=== PATIENT | male | born 1945 | race Asian ===

== ENCOUNTER 2016-12-11 09:32 | Inpatient (IN) | payer MEDICARE, OTHER ==
[2016-12-11 09:39] VITALS: BMI 34.6
[2016-12-11 10:53] LABS: BASOPHIL 0.6 % (0-2.0)
[2016-12-11 11:02] LABS: EOSINOPHIL 2.2 % (0-4.5); MCH 26.1 pg (25.7-33.7); MCHC 32.9 g/dl (32.0-35.9); MEAN CELL VOLUME 79.5 fl (80-96); MEAN PLT VOLUME 11.3 fl (7.5-11.1); NEUTROPHILS 78.7 % (42.8-82.8); PLATELET COUNT 135 K/MM3 (134-434); RDW 15.8 % (11.9-15.9); WHITE BLOOD COUNT 8.8 K/mm3 (4.0-10.0)
[2016-12-11 11:27] LABS: URINE APPEARANCE CLEAR; URINE BILIRUBIN NEGATIVE (NEGATIVE); URINE BLOOD NEGATIVE (NEGATIVE); URINE COLOR LTYELLOW; URINE GLUCOSE (UA) NEGATIVE (NEGATIVE); URINE KETONE NEGATIVE (NEGATIVE); URINE LEUK ESTERASE NEGATIVE (NEGATIVE); URINE NITRITE NEGATIVE (NEGATIVE); URINE UROBILINOGEN NEGATIVE E.U./dl (0.2-1.0)
[2016-12-11 11:30] LABS: ALBUMIN 3.6 g/dl (3.4-5.0); BILIRUBIN,TOTAL 0.7 mg/dL (0.2-1.0); CALCIUM 8.3 mg/dL (8.5-10.1); COCKROFT - GAULT 76.43; CREATININE 1.2 mg/dL (0.7-1.3)
[2016-12-11 11:33] LABS: URINE PROTEIN 1+ (NEGATIVE)
[2016-12-11 11:33] LABS: TOT PROT 6.6 g/dl (6.4-8.2); TROPONIN I 0.02 ng/ml (0.00-0.05)
[2016-12-11 11:39] LABS: URINE HYALINE CAST 1 /lpf; URINE MUCUS RARE; URINE RBC <1 /hpf (0-3); URINE WBC 5 /hpf (3-5)
--- NOTE | 2016-12-11 12:43 | PDOC ---
History of Present Illness - General Chief Complaint: Weakness Stated Complaint: DIZZINESS, URINARY PROBLEM Time Seen by Provider: 12/11/16 09:57 History Source: Patient Exam Limitations: No Limitations - History of Present Illness Initial Comments: 12/11/16 12:48 71-year-old male presents to the ED with complaints of constipation for the past week unrelieved with [id number] medications. Patient undergo plating of increased weakness, decreased appetite, increased shortness of breath with minimal exertion. Patient mentions lower extremity edema despite being on Lasix for his CHF. Patient denies chest pain, fever, chills, nausea or dysuria, palpitations, or cough. Patient states history of Parkinson's, CHF, COPD, diabetes, hypertension, and dyslipidemia. Patient also states history of pacemaker. Timing/Duration: 1 week Severity: moderate Associated Symptoms: reports: shortness of breath, weakness Past History - Past Medical History Allergies/Adverse Reactions: Allergies Allergy/AdvReac Type Severity Reaction Status Date / Time No Known Drug Allergies Allergy Verified 12/11/16 09:39 Home Medications: Ambulatory Orders Gabapentin 100 mg PO TID 08/08/16 Linagliptin [Tradjenta] 5 mg PO DAILY 08/08/16 Mirabegron [Myrbetriq] 50 mg PO DAILY 08/08/16 Atorvastatin Ca [Lipitor] 20 mg PO DAILY 12/11/16 Carbidopa/Levodopa [Carbidopa-Levodopa 25-100 Tab] 1 each PO Q4H 12/11/16 Insulin Glargine,Hum.rec.anlog [Lantus (10mL VIAL) -] 50 units SQ AM 12/11/16 Linaclotide [Linzess] 290 mcg PO DAILY 12/11/16 Potassium Chloride [Klor-Con 10] 10 meq PO BID 12/11/16 Pramipexole Di-HCl [Pramipexole Dihydrochloride] 0.75 mg PO ASDIR 12/11/16 Acetaminophen [Tylenol .Regular Strength -] 650 mg PO Q4H PRN #0 tablet Aspirin [ASA -] 81 mg PO DAILY tab.chew 12/16/16 Carvedilol [Coreg -] 3.125 mg PO BID tablet 12/16/16 Furosemide [Lasix -] 40 mg PO BID@0600,1400 tablet 12/16/16 Insulin Sliding Scale [Novolog Vial Sliding Scale -] 1 vial SQ ACHS units 12/16 Polyethylene Glycol 3350 [Miralax 119 gm Btl -] 34 gm PO BID bottle 12/16/16 Anemia: No Asthma: No Cancer: No Cardiac Disorders: Yes (PACEMAKER) CVA: No COPD: No CHF: Yes Dementia: No Diabetes: Yes GI Disorders: Yes (GALLBLADDER) Disorders: Yes (ENLARGED PROSTATE) HTN: Yes Hypercholesterolemia: Yes Liver Disease: No Seizures: No Thyroid Disease: No Other medical history: parkinson's disease - Surgical History Abdominal Surgery: No Appendectomy: No Cardiac Surgery: Yes (STENTS X2,PACEMAKER) Cholecystectomy: No Lung Surgery: No Neurologic Surgery: No Orthopedic Surgery: No - Psycho/Social/Smoking Cessation Hx Anxiety: No Suicidal Ideation: No Smoking History: Never smoked Have you smoked in the past 12 months: No Information on smoking cessation initiated: No Hx Alcohol Use: No Drug/Substance Use Hx: No Substance Use Type: None Hx Substance Use Treatment: No Patient Lives Alone: No Review of Systems - Review of Systems Able to Perform ROS?: Yes Constitutional: Yes: Loss of Appetite, Weakness HEENTM: No: Symptoms Reported Respiratory: Yes: SOB with Exertion Cardiac (ROS): No: Symptoms Reported ABD/GI: Yes: Abdominal Distended, Constipated. No: Nausea, Abdominal cramping : No: Symptoms Reported Musculoskeletal: No: Symptoms Reported Integumentary: No: Symptoms Reported Neurological: No: Symptoms reported Endocrine: No: Symptoms Reported Hematologic/Lymphatic: No: Symptoms Reported *Physical Exam - Vital Signs Last Vital Signs Temp Pulse Resp BP Pulse Ox 97.8 F 70 18 146/112 96 12/11/16 09:37 12/11/16 09:37 12/11/16 09:37 12/11/16 09:37 12/11/16 10:00 - Physical Exam General Appearance: Yes: Nourished, Appropriately Dressed. No: Apparent Distress HEENT: positive: EOMI, BRIGETTE. negative: Pale Conjunctivae Neck: positive: Supple Respiratory/Chest: positive: Crackles (inspiratory to right lower base) Cardiovascular: positive: Regular Rhythm, Regular Rate. negative: Murmur Gastrointestinal/Abdominal: positive: Normal Bowel Sounds, Soft, Distended. negative: Tenderness Musculoskeletal: negative: CVA Tenderness Extremity: positive: Pedal Edema (3 plus pitting bilateral). negative: Calf Tenderness Integumentary: positive: Normal Color, Warm, Moist Neurologic: positive: Motor Strength 5/5 (ambulatory) ED Treatment Course - LABORATORY CBC & Chemistry Diagram: 12/13/16 05:35 12/15/16 05:35 - ADDITIONAL ORDERS Additional order review: Laboratory Results 12/11/16 12/11/16 12/11/16 10:40 10:24 10:24 Sodium 141 Potassium 4.7 Chloride 108 H Carbon Dioxide 26 Anion Gap 7 L BUN 23 H Creatinine 1.2 Creat Clearance w eGFR 59.86 Random Glucose 203 H D Calcium 8.3 L Total Bilirubin 0.7 D AST 38 H D ALT 44 D Alkaline Phosphatase 78 Creatine Kinase 304 D Troponin I 0.02 B-Natriuretic Peptide 687.64 H Total Protein 6.6 Albumin 3.6 Urine Color Ltyellow Urine Appearance Clear Urine pH 5.0 Urine Protein 1+ H Urine Glucose (UA) Negative Urine Ketones Negative Urine Blood Negative Urine Nitrite Negative Urine Bilirubin Negative Urine Urobilinogen Negative Ur Leukocyte Esterase Negative Urine RBC <1 Urine WBC 5 Hyaline Casts 1 Urine Mucus Rare 12/11/16 10:24 RBC 4.79 MCV 79.5 L MCHC 32.9 RDW 15.8 MPV 11.3 H Neutrophils % 78.7 Lymphocytes % 11.1 D Monocytes % 7.4 Eosinophils % 2.2 Basophils % 0.6 - RADIOLOGY Radiology Studies Ordered: Category Date Time Status CHEST X-RAY PORTABLE* [RAD] Stat Radiology 12/11/16 10:09 Completed KUB (KID UR & BLAD) [RAD] Stat Radiology 12/11/16 10:08 Completed Medical Decision Making - Medical Decision Making 12/11/16 12:08 Patient complains of constipation over the past week despite being on over-the- counter tablets patient also complaining of shortness of breath with minimal exertion and increased lower extremity edema. Patient does have history of CHF and COPD. Patient on exam had inspiratory crackles to the right with 3+ pitting edema to the lower extremities. Patient ordered for cardiac workup, BNP and a KUB to rule out colonic dilatation versus obstruction. 12/11/16 13:00 Abdominal x-ray shows constipation without obstruction and chest x-ray shows increasing congestive changes. Patient will be ordered for Lasix 40 mg IV and will consult patient's PCP Dr. Jane for admission 12/11/16 13:05 Laboratory Tests 12/11/16 12/11/16 12/11/16 10:24 10:24 10:24 WBC 8.8 Hgb 12.5 Hct 38.0 Plt Count 135 Neutrophils % 78.7 Sodium 141 Potassium 4.7 Chloride 108 H Anion Gap 7 L BUN 23 H Creatinine 1.2 Creat Clearance w eGFR 59.86 Random Glucose 203 H D Calcium 8.3 L Total Bilirubin 0.7 D AST 38 H D ALT 44 D Alkaline Phosphatase 78 Creatine Kinase 304 D CK-MB (CK-2) Rel Index Troponin I 0.02 B-Natriuretic Peptide 687.64 H Urine Protein Urine Ketones Urine Nitrite Urine Bilirubin Ur Leukocyte Esterase Urine RBC Urine WBC 12/11/16 12/11/16 10:24 10:40 WBC Hgb Hct Plt Count Neutrophils % Sodium Potassium Chloride Anion Gap BUN Creatinine Creat Clearance w eGFR Random Glucose Calcium Total Bilirubin AST ALT Alkaline Phosphatase Creatine Kinase CK-MB (CK-2) Rel Index Pending Troponin I B-Natriuretic Peptide Urine Protein 1+ H Urine Ketones Negative Urine Nitrite Negative Urine Bilirubin Negative Ur Leukocyte Esterase Negative Urine RBC <1 Urine WBC 5 Awaiting also call from patient's openstack developer Dr. Downs 12/11/16 13:42 Dr. Galindo here for consultation. Microblog sent to hospitalist. 12/11/16 13:55 Hospital states patient is to be admitted to Dr. Katharine Rodriguez. Call placed to Dr. Katharine Rodriguez *DC/Admit/Observation/Transfer Diagnosis at time of Disposition: Lightheaded, Dizziness CHF (congestive heart failure) Qualifiers: Congestive heart failure type: systolic Congestive heart failure chronicity: acute on chronic Qualified Code(s): I50.23 - Acute on chronic systolic ( congestive) heart failure Constipation Qualifiers: Constipation type: unspecified constipation type Qualified Code(s): K59.00 - Constipation, unspecified - Discharge Dispostion Disposition: [facility]-WAY FACILITY Condition at time of disposition: Fair Admit: Yes - Referrals
[2016-12-11] MEDS ORDERED: FUROSEMIDE 40 MG/4 ML INJECTABLE VIAL IVPUSH ONE (13:01)
[2016-12-11] MEDS ORDERED: FUROSEMIDE 40 MG/4 ML INJECTABLE VIAL ONE (13:10)
--- NOTE | 2016-12-11 14:13 | CON.CARD ---
Consult Consult Specialty:: Cardiology Referred by:: ER Reason for Consultation:: SOB, edema - History of Present Illness Chief Complaint: Weakness, constipation, sob, edema History of Present Illness: 71 year old man with a history of HTN, HLD, DM, CAD s/p PCI LAD 2007 and again 2012, repeat cardiac cath 05/2014 showed patent LAD stents an only non- obstructive CAD in the other coronary territories, Chronic diastolic HF, Parkinsons disease, non-adherent with follow up, has not been to the office in several years, last seen here in the hospital 2 years ago with c/o dizziness, he has since undergone a PPM placement at an outside facility now presenting with constipation, sob, edema. Pt. seen and examined in the ER in [place]. Pt. states that he has been followed by a different fruit canner since he was last seen by us but he does not know the doctors name or location. He states that he had the PPM placed with that doctor. He is currently c/o constipation for several days and additionally notes worsening sob and edema. Denies chest pain. continues to have chronic dizziness. no syncope or near syncope. no pnd, orthopnea. - History Source History Provided By: Patient, Medical Record Limitations to Obtaining History: Poor Historian - Past Medical History Cardio/Vascular: Yes: AFIB, CAD, CHF, HTN, Hyperlipdemia, Other (ppm) - Past Surgical History Past Surgical History: Yes: Permanent Pacemaker - Alcohol/Substance Use Hx Alcohol Use: No - Smoking History Smoking history: Never smoked Have you smoked in the past 12 months: No - Social History Usual Living Arrangement: With Spouse ADL: Independent History of Recent Travel: No Home Medications - Allergies Allergies/Adverse Reactions: Allergies Allergy/AdvReac Type Severity Reaction Status Date / Time No Known Drug Allergies Allergy Verified 12/11/16 09:39 - Home Medications Home Medications: Ambulatory Orders Furosemide [Lasix -] 40 mg PO DAILY 08/08/16 Gabapentin 100 mg PO TID 08/08/16 Linagliptin [Tradjenta] 5 mg PO DAILY 08/08/16 Mirabegron [Myrbetriq] 50 mg PO DAILY 08/08/16 Atorvastatin Ca [Lipitor] 20 mg PO HS 12/11/16 Carbidopa/Levodopa [Carbidopa-Levodopa 25-100 Tab] 1 each PO Q4H 12/11/16 Insulin Glargine,Hum.rec.anlog [Lantus (nf)] 50 units SQ AM 12/11/16 Linaclotide [Linzess] 290 mcg PO DAILY 12/11/16 Naloxegol Oxalate [Movantik] 25 mg PO DAILY 12/11/16 Potassium Chloride [Klor-Con 10] 10 meq PO BID 12/11/16 Pramipexole Di-HCl [Pramipexole Dihydrochloride] 0.75 mg PO ASDIR 12/11/16 Family Disease History - Family Disease History Family History: Denies Review of Systems - Review of Systems Constitutional: reports: Weakness. denies: No Symptoms, Chills, Diaphoresis, Fever, Lethargy, Loss of Appetite, Malaise, Night Sweats, Unintentional Wgt. Loss, Other Eyes: denies: No Symptoms, Blind Spots, Blurred Vision, Double Vision, Eye Pain , Floaters, Photophobia, Recent Change in Vision, Other HENT: denies: No Symptoms, Difficult Swallowing, Ear Discharge, Ear Pain, Epistaxis, Gingival Bleeding, Hearing Loss, Mouth Swelling, Nasal Congestion, Ocular Prosthesis, Throat Pain, Toothache, Ringing in Ears, Other Neck: denies: No Symptoms, Decreased ROM, Lumps, Pain on Movement, Stiffness, Swollen Glands, Tenderness, Other Cardiovascular: reports: Edema, Shortness of Breath. denies: Chest Pain, Palpitations, Other Respiratory: reports: Exercise Intolerance, SOB, SOB on Exertion. denies: No Symptoms, Cough, Hemoptysis, Orthopnea, PND, Snoring, Wheezing, Other Gastrointestinal: reports: Constipation. denies: No Symptoms, Abdominal Pain, Bloating, Diarrhea, Dysphagia, Indigestion, Melena, Nausea, Rectal Bleeding, Vomiting, Vomiting Blood, Other Genitourinary: denies: No Symptoms, Burning, Discharge, Dysuria, Flank Pain, Frequency, Hematuria, Incontinence, Lesions, Menses, Pain, Testicular Mass, Testicular Pain, Testicular Swelling, Urgency, Vaginal Bleeding, Other Breasts: denies: No Symptoms Reported, See HPI, Breast Implants, Discharge from Nipple, Lumps, Pain, Skin Changes, Other Musculoskeletal: denies: No Symptoms, Back Pain, Crepitus, Decreased ROM, Extremity Pain, Joint Pain, Joint Swelling, Muscle Pain, Muscle Cramps, Muscle Weakness, Other Integumentary: denies: No Symptoms, Blister, Bruising, Change in Color, Eczema, Erythema, Incision, Lesions, Lump, Pallor, Pruritis, Rash, Wound, Other Neurological: reports: Incoordination, Tremors. denies: No Symptoms, Change in LOC, Change in Speech, Confusion, Dizziness, Headache, Numbness, Parasthesia, Pre-Existing Deficit, Seizure, Syncope, Unsteady Gait, Weakness, Other Endocrine: denies: No Symptoms, Excessive Sweating, Flushing, Increased Hunger, Increased Thirst, Intolerance to Cold, Intolerance to Heat, Unexplained Weight Gain, Unexplained Weight Loss, Other Hematology/Lymphatic: denies: No Symptoms, Easily Bruised, Excessive Bleeding, Swollen Glands, Other Psychiatric: denies: No Symptoms, Altered Sleep Pattern, Anxiety, Depression, Hallucinations, Panic, Paranoia, Suicidal, Other - Risk Factors Known Risk Factors: Yes: Hypercholesterolemia, Hypertension Vital Signs: Vital Signs Temperature 97.8 F 12/11/16 09:37 Pulse Rate 61 12/11/16 14:05 Respiratory Rate 18 12/11/16 14:05 Blood Pressure 130/63 12/11/16 14:05 O2 Sat by Pulse Oximetry (%) 100 12/11/16 14:05 Constitutional: Yes: No Distress, Calm, Obese Eyes: Yes: Conjunctiva Clear, EOM Intact, PERRL HENT: Yes: Atraumatic, Normocephalic Neck: Yes: Supple, Trachea Midline Respiratory: Yes: Regular, Diminished, Rales. No: Rhonchi, SOB, Wheezes Gastrointestinal: Yes: Normal Bowel Sounds, Soft. No: Distention, Tenderness Cardiovascular: Yes: Regular Rate and Rhythm. No: Bradycardia, Tachycardia, Gallop, Rub, Varicosities JVD: No Carotid Bruit: No PMI: Non-Displaced Heart Sounds: Yes: S1, S2. No: Split S2, S3, S4, Clicks, Gallop, Rub, Bruit Murmur: No: Systolic Murmur, Diastolic Murmur Musculoskeletal: Yes: Muscle Weakness Edema: Yes Edema: LLE: 1+, RLE: 1+ Peripheral Pulses WNL: Yes Peripheral Pulses: 2+ Left Doralis Pedis, 2+ Right Dorsalis Pedis Neurological: Yes: Alert, Oriented Psychiatric: Yes: Alert, Oriented - Other Data Labs, Other Data: CBC, BMP 12/11/16 10:24 12/11/16 10:24 Troponin, BNP 12/11/16 12/11/16 10:24 10:24 Troponin I 0.02 B-Natriuretic Peptide 687.64 H Troponin, BNP 12/11/16 12/11/16 10:24 10:24 Troponin I 0.02 B-Natriuretic Peptide 687.64 H ekg-NSR Vpaced 60bpm Imaging - Results Chest X-ray: Report Reviewed, Image Reviewed EKG: Report Reviewed, Image Reviewed Other: Report Reviewed, Image Reviewed Assessment/Plan 71 year old man with a history of HTN, HLD, DM, CAD s/p PCI LAD 2007 and again 2012, repeat cardiac cath 05/2014 showed patent LAD stents an only non- obstructive CAD in the other coronary territories, Chronic diastolic HF, Parkinsons disease, non-adherent with follow up, has not been to the office in several years, last seen here in the hospital 2 years ago with c/o dizziness, he has since undergone a PPM placement at an outside facility now presenting with constipation, sob, edema. Pt. seen and examined in the ER in [facility]. Pt. states that he has been followed by a different fruit canner since he was last seen by us but he does not know the doctors name or location. He states that he had the PPM placed with that doctor. He is currently c/o constipation for several days and additionally notes worsening sob and edema. Denies chest pain. continues to have chronic dizziness. no syncope or near syncope. no pnd, orthopnea. SOB/Edema-acute on chronic diastolic HF-chronic LE edema -start Lasix 40mg IV bid -monitor strict I/Os and daily weights -fluid restrict < 1L x 24 hours -monitor bun/creat, electrolytes and replete as needed -check echo Dizziness-chronic, multiple possible etiologies, likely related to Parkinsons and possible orthostatic hypotension -pt had a PPM placed since last seen at [facility] -would consider neurologic sources and medications given Parkinsons disease -echo done 11/11/14- TDS, no pericardial effusion, trace MR, mild calc AV with normal opening, E-A reversal c/w impaired relaxation, grossly normal LV systolic function -carotid doppler done 11/21/14-no sign of atherosclerotic disease on either side , no evidence of hemodynamically sig internal carotid artery stenosis on either side -check orthostatic BP CAD-prior PCI LAD 2007 and 2012, cath 2013 with no sig restenosis and otherwise non-obs CAD -cont with home medical regimen -would be helpful to review results of any tests done at outside fruit canner office HTN-at goal -cont home medical regimen HLD -cont home medical regimen
[2016-12-11] MEDS ORDERED: ACETAMINOPHEN 325 MG TABLET (FP) PO PRN (15:32)
--- NOTE | 2016-12-11 17:24 | EKG ---
Test Reason : Blood Pressure : / mmHG Vent. Rate : 069 BPM Atrial Rate : 080 BPM P-R Int : 000 ms QRS Dur : 110 ms QT Int : 400 ms P-R-T Axes : 000 -32 172 degrees QTc Int : 428 ms Ventricular-paced rhythm ABNORMAL ECG WHEN COMPARED WITH ECG OF 16-JUN-2016 00:48, ELECTRONIC VENTRICULAR PACEMAKER HAS REPLACED SINUS RHYTHM Confirmed by NATALIE HOUSTON MD ([id number]) on 12/11/2016 5:23:54 PM Referred By: Confirmed By:NATALIE HOUSTON MD
[2016-12-11] MEDS: INSULIN SLIDING SCALE (NOVOLOG) 1 VIAL SQ SCH ×2 (18:11→22:11)
[2016-12-11] MEDS: CARBIDOPA/LEVODOPA 25/100 TABLET (FP) PO SCH ×2 (19:19→22:09)
--- NOTE | 2016-12-11 19:39 | CON.GI ---
Consult Consult Specialty:: gastroenterology Reason for Consultation:: constipation - History of Present Illness History of Present Illness: I was asked by his son to see his dad. Patient known to me, history of Parkinson 's disease developed severe constipation. His last bowel movement was 1 week ago. He was admired with CHF and fluid overload. - Past Medical History Cardio/Vascular: Yes: AFIB, CAD, CHF, HTN, Hyperlipdemia, Other (ppm) - Past Surgical History Past Surgical History: Yes: Permanent Pacemaker - Alcohol/Substance Use Hx Alcohol Use: No - Smoking History Smoking history: Never smoked Have you smoked in the past 12 months: No - Social History Usual Living Arrangement: With Spouse ADL: Independent History of Recent Travel: No Home Medications - Allergies Allergies/Adverse Reactions: Allergies Allergy/AdvReac Type Severity Reaction Status Date / Time No Known Drug Allergies Allergy Verified 12/11/16 09:39 - Home Medications Home Medications: Ambulatory Orders Furosemide [Lasix -] 40 mg PO DAILY 08/08/16 Gabapentin 100 mg PO TID 08/08/16 Linagliptin [Tradjenta] 5 mg PO DAILY 08/08/16 Mirabegron [Myrbetriq] 50 mg PO DAILY 08/08/16 Atorvastatin Ca [Lipitor] 20 mg PO DAILY 12/11/16 Carbidopa/Levodopa [Carbidopa-Levodopa 25-100 Tab] 1 each PO Q4H 12/11/16 Insulin Glargine,Hum.rec.anlog [Lantus (nf)] 50 units SQ AM 12/11/16 Linaclotide [Linzess] 290 mcg PO DAILY 12/11/16 Naloxegol Oxalate [Movantik] 25 mg PO DAILY 12/11/16 Potassium Chloride [Klor-Con 10] 10 meq PO BID 12/11/16 Pramipexole Di-HCl [Pramipexole Dihydrochloride] 0.75 mg PO ASDIR 12/11/16 Physical Exam-GI Vital Signs: Vital Signs Temperature 98.1 F 12/11/16 18:24 Pulse Rate 65 12/11/16 18:24 Respiratory Rate 20 12/11/16 18:24 Blood Pressure 139/66 12/11/16 18:24 O2 Sat by Pulse Oximetry (%) 99 12/11/16 18:24 Constitutional: Yes: Well Nourished Eyes: Yes: Conjunctiva Clear HENT: Yes: Atraumatic Neck: Yes: Supple Cardiovascular: Yes: Regular Rate and Rhythm Respiratory: Yes: CTA Bilaterally Gastrointestinal Inspection: Yes: Distention ...Palpate: Yes: Soft. No: Firm/Rigid, Guarding, Hepatomegaly, Mass, Pulsatile Mass, Splenomegaly, Tenderness ...Percussion: Yes: Tympanitic Imaging - Results X-ray: Report Reviewed (colon retention) Problem List - Problems (1) Constipation by delayed colonic transit Assessment/Plan: R> oil retention enemas citroma in am Mirlax 34 gram tid dulcolax 2 tabs bid Code(s): K59.01 - SLOW TRANSIT CONSTIPATION
[2016-12-11] MEDS ORDERED: MINERAL OIL ENEMA 133 ML ENEMA PR ONE (19:41)
[2016-12-11] MEDS: HEPARIN NA (PORCINE) 5,000 UNITS/ML 1ML VIAL SQ SCH (22:00)
[2016-12-11] MEDS: ATORVASTATIN CA 20 MG TABLET (FP) PO SCH (22:00)
[2016-12-11] MEDS: POTASSIUM CHLORIDE TABS 10 MEQ TABLET.ER (FP) PO SCH (22:00)
[2016-12-11] MEDS: PRAMIPEXOLE DIHYDROCHLORIDE 0.25 MG TABLET PO SCH (22:00)
[2016-12-11] MEDS: GABAPENTIN 100 MG CAPSULE (FP) PO SCH (22:00)
[2016-12-11] MEDS: POLYETHYLENE GLYCOL 3350 119 GM BTL PO SCH (22:01)
[2016-12-12] MEDS ORDERED: BISACODYL 5 MG TABLET.DR (FP) PO ONE (06:00)
[2016-12-12] MEDS: FUROSEMIDE 40 MG/4 ML INJECTABLE VIAL IVPUSH SCH ×2 (06:49→14:11)
[2016-12-12] MEDS: GABAPENTIN 100 MG CAPSULE (FP) PO SCH ×3 (06:49→21:42)
[2016-12-12] MEDS: INSULIN DETEMIR 100 UNITS/ML MDV SQ SCH (06:50)
[2016-12-12] MEDS: INSULIN SLIDING SCALE (NOVOLOG) 1 VIAL SQ SCH ×4 (06:50→21:43)
[2016-12-12] MEDS: CARBIDOPA/LEVODOPA 25/100 TABLET (FP) PO SCH ×5 (06:50→23:30)
[2016-12-12 08:00] LABS: BASOPHIL 0.8 % (0-2.0); MCHC 33.1 g/dl (32.0-35.9); MEAN CELL VOLUME 78.8 fl (80-96); MEAN PLT VOLUME 11.4 fl (7.5-11.1); NEUTROPHILS 63.7 % (42.8-82.8); PLATELET COUNT 130 K/MM3 (134-434); RDW 15.6 % (11.9-15.9); WHITE BLOOD COUNT 8.2 K/mm3 (4.0-10.0)
[2016-12-12] MEDS ORDERED: MAGNESIUM CITRATE 300 ML BOTTLE PO ONE (08:00)
--- NOTE | 2016-12-12 08:31 | HP ---
Admitting History and Physical - Admission History of Present Illness: 71-year-old male presents to the ED with complaints of constipation for the past week unrelieved with hkgf-sfo-ofapixc medications. patient c/o increased shortness of breath with minimal exertion. Patient mentions lower extremity edema despite being on Lasix for his CHF. Patient denies chest pain, fever, chills, nausea or dysuria, palpitations, or cough. Patient states history of Parkinson's, CHF, COPD, diabetes, hypertension, and dyslipidemia. Patient also states history of pacemaker. This am feels better no cp less sob - Past Medical History Cardiovascular: Yes: AFIB, CAD, CHF, HTN, Hyperlipdemia, Other (ppm) - Past Surgical History Past Surgical History: Yes: Permanent Pacemaker - Smoking History Smoking history: Never smoked Have you smoked in the past 12 months: No - Alcohol/Substance Use Hx Alcohol Use: No - Social History ADL: Independent History of Recent Travel: No Home Medications - Allergies Allergies/Adverse Reactions: Allergies Allergy/AdvReac Type Severity Reaction Status Date / Time No Known Drug Allergies Allergy Verified 12/11/16 09:39 - Home Medications Home Medications: Ambulatory Orders Furosemide [Lasix -] 40 mg PO DAILY 08/08/16 Gabapentin 100 mg PO TID 08/08/16 Linagliptin [Tradjenta] 5 mg PO DAILY 08/08/16 Mirabegron [Myrbetriq] 50 mg PO DAILY 08/08/16 Atorvastatin Ca [Lipitor] 20 mg PO DAILY 12/11/16 Carbidopa/Levodopa [Carbidopa-Levodopa 25-100 Tab] 1 each PO Q4H 12/11/16 Insulin Glargine,Hum.rec.anlog [Lantus (nf)] 50 units SQ AM 12/11/16 Linaclotide [Linzess] 290 mcg PO DAILY 12/11/16 Naloxegol Oxalate [Movantik] 25 mg PO DAILY 12/11/16 Potassium Chloride [Klor-Con 10] 10 meq PO BID 12/11/16 Pramipexole Di-HCl [Pramipexole Dihydrochloride] 0.75 mg PO ASDIR 12/11/16 Review of Systems - Review of Systems HENT: reports: No Symptoms Neck: reports: No Symptoms Cardiovascular: reports: Edema, Shortness of Breath. denies: Chest Pain Respiratory: reports: Orthopnea, SOB, SOB on Exertion Gastrointestinal: reports: Constipation Genitourinary: reports: No Symptoms Musculoskeletal: reports: Back Pain Physical Examination Vital Signs: Vital Signs Temperature 98.1 F 12/12/16 06:00 Pulse Rate 65 12/12/16 06:00 Respiratory Rate 20 12/12/16 06:00 Blood Pressure 121/57 12/12/16 06:00 O2 Sat by Pulse Oximetry (%) 100 12/11/16 21:00 Cardiovascular: Yes: Murmur, S1, S2 Respiratory: Yes: Rales (at the bases) Gastrointestinal: Yes: Normal Bowel Sounds, Soft, Distention. No: Tenderness Edema: Yes Neurological: Yes: Alert, Oriented, Weakness Problem List - Problems (1) CHF (congestive heart failure) Assessment/Plan: IV LASIX ECHO MONITOR LABS Code(s): I50.9 - HEART FAILURE, UNSPECIFIED Qualifiers: Congestive heart failure type: unspecified congestive heart failure type Congestive heart failure chronicity: acute on chronic Qualified Code(s): I50.9 - Heart failure, unspecified (2) CAD (coronary artery disease) Assessment/Plan: SAME MEDS Code(s): I25.10 - ATHSCL HEART DISEASE OF [place] CORONARY ARTERY W/O ANG PCTRS (3) Constipation Assessment/Plan: GI ON CASE ENEMA PT TOOK [employer] OF MAG ON HIS OWN Code(s): K59.00 - CONSTIPATION, UNSPECIFIED Qualifiers: Constipation type: unspecified constipation type Qualified Code(s): K59.00 - Constipation, unspecified (4) Diabetes Assessment/Plan: BGM SS Code(s): E11.9 - TYPE 2 DIABETES MELLITUS WITHOUT COMPLICATIONS Qualifiers: Diabetes mellitus type: type 2 (5) Parkinson disease Assessment/Plan: SAME MEDS Code(s): G20 - PARKINSON'S DISEASE
[2016-12-12 09:02] LABS: ALBUMIN 3.6 g/dl (3.4-5.0); BILIRUBIN,TOTAL 0.7 mg/dL (0.2-1.0); CALCIUM 8.3 mg/dL (8.5-10.1); COCKROFT - GAULT 68.52; CREATININE 1.3 mg/dL (0.7-1.3); MAGNESIUM 2.3 mg/dL (1.8-2.4); TOT PROT 6.3 g/dl (6.4-8.2); TROPONIN I 0.02 ng/ml (0.00-0.05)
--- NOTE | 2016-12-12 09:16 | PN ---
Progress Note, Physician Chief Complaint: no distress - Current Medication List Current Medications: Active Medications Acetaminophen (Tylenol -) 650 mg PO Q4H PRN PRN Reason: FEVER OR PAIN Atorvastatin Calcium (Lipitor -) 20 mg PO HS [facility] Last Admin: 12/11/16 22:00 Dose: 20 mg Carbidopa/Levodopa (Sinemet 25/100 -) 1 each PO Q4HWA [facility] Last Admin: 12/12/16 06:50 Dose: 1 each Furosemide (Lasix Injection -) 40 mg IVPUSH BID@0600,1400 [facility] Last Admin: 12/12/16 06:49 Dose: 40 mg Gabapentin (Neurontin -) 100 mg PO TID [facility] Last Admin: 12/12/16 06:49 Dose: 100 mg Heparin Sodium (Porcine) (Heparin -) 5,000 unit SQ BID [facility] Last Admin: 12/11/16 22:00 Dose: 5,000 unit Insulin Aspart (Novolog Vial Sliding Scale -) 1 vial SQ ACHS [facility] PRN Reason: Protocol Last Admin: 12/12/16 06:50 Dose: Not Given Insulin Detemir (Levemir Vial) 40 units SQ AM [facility] Last Admin: 12/12/16 06:50 Dose: 40 units Non-Formulary Medication (Linaclotide [Linzess]) 290 mcg PO DAILY [facility] Non-Formulary Medication (Mirabegron [Myrbetriq]) 50 mg PO DAILY [facility] Non-Formulary Medication (Naloxegol Oxalate [Movantik]) 25 mg PO DAILY [facility] Polyethylene Glycol (Miralax (For Daily Use) -) 34 gm PO BID [facility] Last Admin: 12/11/16 22:01 Dose: 34 gm Potassium Chloride (K-Dur -) 10 meq PO BID [facility] Last Admin: 12/11/16 22:00 Dose: 10 meq Pramipexole Dihydrochloride (Mirapex -) 0.75 mg PO HS [facility] Last Admin: 12/11/16 22:00 Dose: 0.75 mg Sitagliptin Phosphate (Januvia -) 100 mg PO ACBK [facility] - Objective Vital Signs: Vital Signs Temperature 98.1 F 12/12/16 06:00 Pulse Rate 65 12/12/16 06:00 Respiratory Rate 20 12/12/16 06:00 Blood Pressure 121/57 12/12/16 06:00 O2 Sat by Pulse Oximetry (%) 100 12/11/16 21:00 Constitutional: Yes: No Distress Cardiovascular: Yes: Regular Rate and Rhythm Respiratory: Yes: Other (slight decreased breath sounds at bases) Gastrointestinal: Yes: Soft Edema: Yes Edema: LLE: 2+, RLE: 2+ Labs: CBC, BMP 12/12/16 05:35 12/12/16 05:35 Laboratory Tests 12/11/16 12/12/16 12/12/16 10:24 05:35 05:35 WBC 8.2 Hgb 12.4 Plt Count 130 L Potassium 4.3 Creatinine 1.3 Troponin I 0.02 0.02 - ....Imaging EKG: Image Reviewed (TELE: NSR) Assessment/Plan Assessment/Plan 71 year old man with a history of HTN, HLD, DM, CAD s/p PCI LAD 2007 and again 2012, repeat cardiac cath 05/2014 showed patent LAD stents an only non- obstructive CAD in the other coronary territories, PPM, Chronic diastolic HF, Parkinsons disease, non-adherent with follow up, has not been to the office in several years, last seen here in the hospital 2 years ago with c/o dizziness, he has since undergone a PPM placement at an outside facility now presenting with constipation, sob, edema. SOB/Edema-acute on chronic systolic HF-chronic LE edema - Lasix 40mg IV bid for one more day, then can likely swtich to PO -monitor strict I/Os and daily weights -monitor bun/creat, electrolytes and replete as needed -echo shows moderate LV systolic dysfx Dizziness-chronic, multiple possible etiologies, likely related to Parkinsons and possible orthostatic hypotension -pt had a PPM placed since last seen at [facility] -would consider neurologic sources and medications given Parkinsons disease -carotid doppler done 11/21/14-no sign of atherosclerotic disease on either side , no evidence of hemodynamically sig internal carotid artery stenosis on either side -check orthostatic BP CAD-prior PCI LAD 2007 and 2012, cath 2013 with no sig restenosis and otherwise non-obs CAD -cont with home medical regimen -would be helpful to review results of any tests done at outside [facility]
[2016-12-12] MEDS ORDERED: PATIENT'S OWN MEDICATION (NON-FORMULARY) (Naloxegol Oxalate [Movantik] 25 MG) PO SCH (10:00)
[2016-12-12] MEDS ORDERED: PATIENT'S OWN MEDICATION (NON-FORMULARY) (Linaclotide [Linzess] 290 MCG) PO SCH (10:00)
[2016-12-12] MEDS ORDERED: PATIENT'S OWN MEDICATION (NON-FORMULARY) (Mirabegron [Myrbetriq] 50 MG) PO SCH (10:00)
[2016-12-12] MEDS: sitaGLIPtin PHOSPHATE 100 MG TABLET (FP) PO SCH (10:11)
[2016-12-12] MEDS: ASPIRIN 81 MG CHEWABLE TABLETS PO SCH (10:12)
[2016-12-12] MEDS: HEPARIN NA (PORCINE) 5,000 UNITS/ML 1ML VIAL SQ SCH ×2 (10:13→21:42)
[2016-12-12] MEDS: POLYETHYLENE GLYCOL 3350 119 GM BTL PO SCH ×2 (10:14→21:43)
[2016-12-12] MEDS: POTASSIUM CHLORIDE TABS 10 MEQ TABLET.ER (FP) PO SCH ×2 (10:14→21:42)
--- NOTE | 2016-12-12 10:21 | EKG ---
Test Reason : Blood Pressure : / mmHG Vent. Rate : 068 BPM Atrial Rate : 068 BPM P-R Int : 224 ms QRS Dur : 116 ms QT Int : 430 ms P-R-T Axes : 021 -33 177 degrees QTc Int : 457 ms Atrial-sensed ventricular-paced rhythm with prolonged AV conduction ABNORMAL ECG WHEN COMPARED WITH ECG OF 11-DEC-2016 10:02, NO SIGNIFICANT CHANGE WAS FOUND Confirmed by CLAIRE BENITES MD ([id number]) on 12/12/2016 10:20:50 AM Referred By: MARIAMA WINTERS Confirmed By:CLAIRE BENITES MD
[2016-12-12 10:48] LABS: THYROID STIMULATING HORMONE 2.84 uIU/ml (0.358-3.74)
[2016-12-12] MEDS ORDERED: INSULIN (NOVOLOG) ASPART 100 UNITS/ML 10ML VIAL ONE (17:42)
[2016-12-12] MEDS: ATORVASTATIN CA 20 MG TABLET (FP) PO SCH (21:42)
[2016-12-12] MEDS: PRAMIPEXOLE DIHYDROCHLORIDE 0.25 MG TABLET PO SCH (21:42)
[2016-12-13] MEDS: FUROSEMIDE 40 MG/4 ML INJECTABLE VIAL IVPUSH SCH ×2 (06:50→14:08)
[2016-12-13] MEDS: CARBIDOPA/LEVODOPA 25/100 TABLET (FP) PO SCH ×4 (06:50→17:01)
[2016-12-13] MEDS: GABAPENTIN 100 MG CAPSULE (FP) PO SCH ×3 (06:50→21:24)
[2016-12-13] MEDS: INSULIN SLIDING SCALE (NOVOLOG) 1 VIAL SQ SCH ×4 (06:51→21:22)
[2016-12-13] MEDS: INSULIN DETEMIR 100 UNITS/ML MDV SQ SCH (06:51)
[2016-12-13] MEDS: sitaGLIPtin PHOSPHATE 100 MG TABLET (FP) PO SCH (06:51)
[2016-12-13 08:04] LABS: BASOPHIL 0.8 % (0-2.0); EOSINOPHIL 4.5 % (0-4.5); MCH 25.8 pg (25.7-33.7); MCHC 32.6 g/dl (32.0-35.9); MEAN CELL VOLUME 79.3 fl (80-96); MEAN PLT VOLUME 11.7 fl (7.5-11.1); NEUTROPHILS 67.8 % (42.8-82.8); PLATELET COUNT 148 K/MM3 (134-434); RDW 15.9 % (11.9-15.9)
[2016-12-13 08:42] LABS: ALBUMIN 3.8 g/dl (3.4-5.0); BILIRUBIN,TOTAL 0.6 mg/dL (0.2-1.0); TOT PROT 6.7 g/dl (6.4-8.2)
[2016-12-13 08:43] LABS: COCKROFT - GAULT 62.68; CREATININE 1.4 mg/dL (0.7-1.3)
[2016-12-13] MEDS: HEPARIN NA (PORCINE) 5,000 UNITS/ML 1ML VIAL SQ SCH ×2 (09:11→21:23)
[2016-12-13] MEDS: POTASSIUM CHLORIDE TABS 10 MEQ TABLET.ER (FP) PO SCH ×2 (09:11→21:25)
[2016-12-13] MEDS: ASPIRIN 81 MG CHEWABLE TABLETS PO SCH (09:11)
[2016-12-13] MEDS: POLYETHYLENE GLYCOL 3350 119 GM BTL PO SCH ×2 (09:12→21:28)
--- NOTE | 2016-12-13 12:48 | PN ---
Progress Note, Physician History of Present Illness: feels better no cp - Current Medication List Current Medications: Active Medications Acetaminophen (Tylenol -) 650 mg PO Q4H PRN PRN Reason: FEVER OR PAIN Aspirin (Asa -) 81 mg PO DAILY [facility] Last Admin: 12/13/16 09:11 Dose: 81 mg Atorvastatin Calcium (Lipitor -) 20 mg PO HS [facility] Last Admin: 12/12/16 21:42 Dose: 20 mg Carbidopa/Levodopa (Sinemet 25/100 -) 1 each PO Q4HWA [facility] Last Admin: 12/13/16 09:11 Dose: 1 each Furosemide (Lasix Injection -) 40 mg IVPUSH BID@0600,1400 [facility] Last Admin: 12/13/16 06:50 Dose: 40 mg Gabapentin (Neurontin -) 100 mg PO TID [facility] Last Admin: 12/13/16 06:50 Dose: 100 mg Heparin Sodium (Porcine) (Heparin -) 5,000 unit SQ BID [facility] Last Admin: 12/13/16 09:11 Dose: 5,000 unit Insulin Aspart (Novolog Vial Sliding Scale -) 1 vial SQ [facility] PRN Reason: Protocol Last Admin: 12/13/16 11:41 Dose: Not Given Insulin Detemir (Levemir Vial) 40 units SQ AM [facility] Last Admin: 12/13/16 06:51 Dose: 40 units Non-Formulary Medication (Linaclotide [Linzess]) 290 mcg PO DAILY [facility] Non-Formulary Medication (Mirabegron [Myrbetriq]) 50 mg PO DAILY [facility] Non-Formulary Medication (Naloxegol Oxalate [Movantik]) 25 mg PO DAILY [facility] Polyethylene Glycol (Miralax (For Daily Use) -) 34 gm PO BID [facility] Last Admin: 12/13/16 09:12 Dose: 34 gm Potassium Chloride (K-Dur -) 10 meq PO BID [facility] Last Admin: 12/13/16 09:11 Dose: 10 meq Pramipexole Dihydrochloride (Mirapex -) 0.75 mg PO HS [facility] Last Admin: 12/12/16 21:42 Dose: 0.75 mg Sitagliptin Phosphate (Januvia -) 100 mg PO ACBK [facility] Last Admin: 12/13/16 06:51 Dose: 100 mg - Objective Vital Signs: Vital Signs Temperature 98.2 F 12/13/16 09:00 Pulse Rate 62 05/06/17 09:00 Respiratory Rate 16 12/13/16 09:00 Blood Pressure 112/64 12/13/16 09:00 O2 Sat by Pulse Oximetry (%) 94 L 12/13/16 09:00 Cardiovascular: Yes: S1, S2 Respiratory: Yes: Regular, CTA Bilaterally Gastrointestinal: Yes: Normal Bowel Sounds, Soft Edema: Yes (improved) Labs: CBC, BMP 12/13/16 05:35 12/13/16 05:35 Problem List - Problems (1) CHF (congestive heart failure) Assessment/Plan: IV LASIX ECHO NOTED MOD LV DYSFUNCTION--EF 41% MONITOR LABS ADD COREG AND ALTACE Code(s): I50.9 - HEART FAILURE, UNSPECIFIED Qualifiers: Congestive heart failure type: systolic Congestive heart failure chronicity: acute on chronic Qualified Code(s): I50.23 - Acute on chronic systolic (congestive) heart failure (2) CAD (coronary artery disease) Assessment/Plan: SAME MEDS Code(s): I25.10 - ATHSCL HEART DISEASE OF [place] CORONARY ARTERY W/O ANG PCTRS (3) Constipation Assessment/Plan: GI ON CASE ENEMA PT TOOK [place] OF MAG ON HIS OWN Code(s): K59.00 - CONSTIPATION, UNSPECIFIED Qualifiers: Constipation type: unspecified constipation type Qualified Code(s): K59.00 - Constipation, unspecified (4) Diabetes Code(s): E11.9 - TYPE 2 DIABETES MELLITUS WITHOUT COMPLICATIONS Qualifiers: Diabetes mellitus type: type 2 (5) Parkinson disease Code(s): G20 - PARKINSON'S DISEASE
[2016-12-13] MEDS ORDERED: RAMIPRIL 2.5 MG CAPSULE (FP) PO SCH (13:00)
--- NOTE | 2016-12-13 13:18 | PN ---
Progress Note, Physician Chief Complaint: Pt A&Ox3; OOB in chair; anxious. Denies dyspnea or chest pain. History of Present Illness: 1-year-old male (kaitlin Dominguez), presents to the ED with complaints of constipation for the past week unrelieved with qivx-nbx-tmgyckc medications. Patient c/o ncreased weakness, decreased appetite, increased shortness of breath with minimal exertion. Patient mentions lower extremity edema (R>L) despite being on Lasix for his CHF. Patient denies chest pain, fever, chills, nausea or dysuria, palpitations, or cough. Patient states history of Parkinson's , CHF, CAD, COPD, diabetes, hypertension, and dyslipidemia. Patient also states history of pacemaker done recently at [facility]. Timing/Duration: 1 week Severity: moderate Associated Symptoms: reports: shortness of breath, weakness - Current Medication List Current Medications: Active Medications Acetaminophen (Tylenol -) 650 mg PO Q4H PRN PRN Reason: FEVER OR PAIN Aspirin (Asa -) 81 mg PO DAILY [facility] Last Admin: 12/13/16 09:11 Dose: 81 mg Atorvastatin Calcium (Lipitor -) 20 mg PO HS [facility] Last Admin: 12/12/16 21:42 Dose: 20 mg Carbidopa/Levodopa (Sinemet 25/100 -) 1 each PO Q4HWA [facility] Last Admin: 12/13/16 09:11 Dose: 1 each Carvedilol (Coreg -) 3.125 mg PO BID [facility] Furosemide (Lasix Injection -) 40 mg IVPUSH BID@0600,1400 [facility] Last Admin: 12/13/16 06:50 Dose: 40 mg Gabapentin (Neurontin -) 100 mg PO TID [facility] Last Admin: 12/13/16 06:50 Dose: 100 mg Heparin Sodium (Porcine) (Heparin -) 5,000 unit SQ BID [facility] Last Admin: 12/13/16 09:11 Dose: 5,000 unit Insulin Aspart (Novolog Vial Sliding Scale -) 1 vial SQ ACHS [facility] PRN Reason: Protocol Last Admin: 12/13/16 11:41 Dose: Not Given Insulin Detemir (Levemir Vial) 40 units SQ AM [facility] Last Admin: 12/13/16 06:51 Dose: 40 units Non-Formulary Medication (Linaclotide [Linzess]) 290 mcg PO DAILY [facility] Non-Formulary Medication (Mirabegron [Myrbetriq]) 50 mg PO DAILY [facility] Non-Formulary Medication (Naloxegol Oxalate [Movantik]) 25 mg PO DAILY [facility] Polyethylene Glycol (Miralax (For Daily Use) -) 34 gm PO BID [facility] Last Admin: 12/13/16 09:12 Dose: 34 gm Potassium Chloride (K-Dur -) 10 meq PO BID [facility] Last Admin: 12/13/16 09:11 Dose: 10 meq Pramipexole Dihydrochloride (Mirapex -) 0.75 mg PO HS [facility] Last Admin: 12/12/16 21:42 Dose: 0.75 mg Ramipril (Altace -) 2.5 mg PO DAILY [facility] Sitagliptin Phosphate (Januvia -) 100 mg PO ACBK [facility] Last Admin: 12/13/16 06:51 Dose: 100 mg - Objective Vital Signs: Vital Signs Temperature 98.2 F 12/13/16 09:00 Pulse Rate 62 12/13/16 09:00 Respiratory Rate 16 12/13/16 09:00 Blood Pressure 112/64 12/13/16 09:00 O2 Sat by Pulse Oximetry (%) 94 L 12/13/16 09:00 Constitutional: Yes: Anxious Eyes: Yes: WNL HENT: Yes: WNL Neck: Yes: WNL Cardiovascular: Yes: S1, S2 (split) Respiratory: Yes: WNL Gastrointestinal: Yes: Soft ...Rectal Exam: Yes: Deferred Genitourinary: No: Anuria Breast(s): Yes: WNL Musculoskeletal: Yes: Muscle Weakness Extremities: Yes: Cool Edema: Yes Edema: LLE: Trace, RLE: Trace Peripheral Pulses WNL: Yes Neurological: Yes: Alert, Oriented Labs: CBC, BMP 12/13/16 05:35 12/13/16 05:35 - ....Imaging Chest X-ray: Image Reviewed (pulmonary vascular congestion) Problem List - Problems (1) CAD (coronary artery disease) Assessment/Plan: f/u prior cardiac workup reports. Code(s): I25.10 - ATHSCL HEART DISEASE OF [place] CORONARY ARTERY W/O ANG PCTRS (2) Constipation Code(s): K59.00 - CONSTIPATION, UNSPECIFIED Qualifiers: Constipation type: unspecified constipation type Qualified Code(s): K59.00 - Constipation, unspecified (3) Diabetes Code(s): E11.9 - TYPE 2 DIABETES MELLITUS WITHOUT COMPLICATIONS Qualifiers: Diabetes mellitus type: type 2 (4) HTN (hypertension) Code(s): I10 - ESSENTIAL (PRIMARY) HYPERTENSION (5) Parkinson disease Assessment/Plan: f/u with neurologist (Dr. Chandler). Code(s): G20 - PARKINSON'S DISEASE (6) Acute on chronic systolic (congestive) heart failure Assessment/Plan: Continue beta liu, ACEI; furosemide. F/u BUN/Cr, electrolytes, Is and Os, daily weight. Code(s): I50.23 - ACUTE ON CHRONIC SYSTOLIC (CONGESTIVE) HEART FAILURE (7) History of permanent cardiac pacemaker placement Code(s): Z95.0 - PRESENCE OF CARDIAC PACEMAKER
[2016-12-13] MEDS ORDERED: RAMIPRIL 2.5 MG CAPSULE (FP) PO ONE ×2 (15:00→15:45)
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
--- NOTE | 2016-12-13 19:40 | CONSULT ---
Consult - text type - Consultation Consultation Note: NEUROLOGY CONSULTATION is greatly appreciated: This 71 yo RH m man with h/o HTN, DM, ASHD, CHF and PPM is well-known to me over many years for treatment of Parkinson's disease, RLS, Lumbosacral spinal stenosis with chronic low back pain and diabetic peripheral neuropathy. Last seen by me on 02/18/16 but then seen by Dr. Upton due to change of insurance and his meds were halved. Since then, according to his son he "hasn't been the same" and has increased pain in his back, legs, decreased gait and can't climb stairs. Admitted for increased weakness, difficulty ambulating and CHF. RON: Obese. 2 + pretibial edema. NEURO: Masked facies. Hypophonic speech. Bradykinesia. No tremor. + Cogwheling. Decreased LYLY's. Normal strength. Areflexic in legs Decreased vibration to the ankles. Romberg + Flexed, shuffling, festinating. IMP: Parkinson's disease. Leg Pains related to RLS LS Spinal stenosis Diabetic peripheral neuropathy. SUGGEST: Increase L-Dopa to Sinemet CR 50/200 QID @ 7, 11, 3 and 7 Increase Pramipexole to .25 QID with Sinemet and .75 qHS. Meds can be further increased (towards their previous levels) on an out patient basis. Thank you very much, Grey Chandler MD
[2016-12-13] MEDS ORDERED: PT OWN MED DRAWER 7, Y5N ONE (21:15)
[2016-12-13] MEDS: ATORVASTATIN CA 20 MG TABLET (FP) PO SCH (21:25)
[2016-12-13] MEDS: PRAMIPEXOLE DIHYDROCHLORIDE 0.25 MG TABLET PO SCH (21:26)
[2016-12-13] MEDS: CARVEDILOL 3.125 MG TABLET (FP) PO SCH (21:28)
[2016-12-13] MEDS ORDERED: PRAMIPEXOLE DIHYDROCHLORIDE 0.25 MG TABLET PO SCH (22:00)
[2016-12-14] MEDS: GABAPENTIN 100 MG CAPSULE (FP) PO SCH ×3 (06:08→22:24)
[2016-12-14] MEDS: FUROSEMIDE 40 MG/4 ML INJECTABLE VIAL IVPUSH SCH ×2 (06:08→14:39)
[2016-12-14] MEDS: sitaGLIPtin PHOSPHATE 100 MG TABLET (FP) PO SCH (06:08)
[2016-12-14] MEDS: INSULIN SLIDING SCALE (NOVOLOG) 1 VIAL SQ SCH ×4 (06:08→22:26)
[2016-12-14] MEDS: INSULIN DETEMIR 100 UNITS/ML MDV SQ SCH ×2 (07:09→12:00)
--- NOTE | 2016-12-14 10:11 | PN ---
Progress Note, Physician Chief Complaint: Pt A&Ox3; Denies dyspnea or chest pain. History of Present Illness: 1-year-old male (kaitlin Dominguez), presents to the ED with complaints of constipation for the past week unrelieved with ayfn-gnk-gmbalpb medications. Patient c/o ncreased weakness, decreased appetite, increased shortness of breath with minimal exertion. Patient mentions lower extremity edema (R>L) despite being on Lasix for his CHF. Patient denies chest pain, fever, chills, nausea or dysuria, palpitations, or cough. Patient states history of Parkinson's , CHF, CAD, COPD, diabetes, hypertension, and anxiety, dyslipidemia. Patient also states history of pacemaker done recently at [facility]. Timing/Duration: 1 week Severity: moderate Associated Symptoms: reports: shortness of breath, weakness - Current Medication List Current Medications: Active Medications Acetaminophen (Tylenol -) 650 mg PO Q4H PRN PRN Reason: FEVER OR PAIN Aspirin (Asa -) 81 mg PO DAILY [facility] Last Admin: 12/13/16 09:11 Dose: 81 mg Atorvastatin Calcium (Lipitor -) 20 mg PO HS [facility] Last Admin: 12/13/16 21:25 Dose: 20 mg Carbidopa/Levodopa (Sinemet *Cr* 25/100 -) 2 combo PO 0700,1100,1500,1900 [facility] Carvedilol (Coreg -) 3.125 mg PO BID [facility] Last Admin: 12/13/16 21:28 Dose: 3.125 mg Furosemide (Lasix Injection -) 40 mg IVPUSH BID@0600,1400 [facility] Last Admin: 12/14/16 06:08 Dose: 40 mg Gabapentin (Neurontin -) 100 mg PO TID [facility] Last Admin: 12/14/16 06:08 Dose: 100 mg Heparin Sodium (Porcine) (Heparin -) 5,000 unit SQ BID [facility] Last Admin: 12/13/16 21:23 Dose: 5,000 unit Insulin Aspart (Novolog Vial Sliding Scale -) 1 vial SQ ACHS [facility] PRN Reason: Protocol Last Admin: 12/14/16 06:08 Dose: Not Given Insulin Detemir (Levemir Vial) 40 units SQ AM [facility] Last Admin: 12/14/16 07:09 Dose: Not Given Non-Formulary Medication (Linaclotide [Linzess]) 290 mcg PO DAILY [facility] Non-Formulary Medication (Mirabegron [Myrbetriq]) 50 mg PO DAILY [facility] Non-Formulary Medication (Naloxegol Oxalate [Movantik]) 25 mg PO DAILY [facility] Polyethylene Glycol (Miralax (For Daily Use) -) 34 gm PO BID [facility] Last Admin: 12/13/16 21:28 Dose: Not Given Potassium Chloride (K-Dur -) 10 meq PO BID [facility] Last Admin: 12/13/16 21:25 Dose: 10 meq Pramipexole Dihydrochloride (Mirapex -) 0.75 mg PO HS [facility] Last Admin: 12/13/16 21:26 Dose: 0.75 mg Pramipexole Dihydrochloride (Mirapex -) 0.25 mg PO 0700,1100,1500,1900 [facility] Ramipril (Altace -) 5 mg PO DAILY [facility] Sitagliptin Phosphate (Januvia -) 100 mg PO ACBK [facility] Last Admin: 12/14/16 06:08 Dose: 100 mg - Objective Vital Signs: Vital Signs Temperature 97.8 F 12/14/16 08:40 Pulse Rate 70 12/14/16 08:40 Respiratory Rate 18 12/14/16 06:00 Blood Pressure 117/57 12/14/16 08:40 O2 Sat by Pulse Oximetry (%) 96 12/13/16 21:00 Constitutional: Yes: Calm Eyes: Yes: WNL HENT: Yes: WNL Neck: Yes: WNL Cardiovascular: Yes: S1, S2 (split) Respiratory: Yes: Regular Gastrointestinal: Yes: Soft ...Rectal Exam: Yes: Deferred Genitourinary: Yes: Anuria, Urethral Discharge Musculoskeletal: Yes: WNL Extremities: Yes: WNL Edema: No Peripheral Pulses WNL: Yes Integumentary: Yes: WNL Neurological: Yes: Alert, Oriented Psychiatric: Yes: Alert, Oriented Labs: CBC, BMP 12/13/16 05:35 12/13/16 05:35 Abnormal Lab Results 12/14/16 10:35 BUN 43 H Creatinine 1.5 H Random Glucose 234 H D Magnesium 2.8 H D - ....Imaging Other: Image Reviewed (telemetry periods of ventricular pacing; no arrhythmias) Problem List - Problems (1) CAD (coronary artery disease) Assessment/Plan: f/u prior cardiac workup reports. (Pt describes studies and procedures done in [place], as well). Code(s): I25.10 - ATHSCL HEART DISEASE OF [place] CORONARY ARTERY W/O ANG PCTRS (2) Constipation Code(s): K59.00 - CONSTIPATION, UNSPECIFIED Qualifiers: Constipation type: unspecified constipation type Qualified Code(s): K59.00 - Constipation, unspecified (3) Diabetes Assessment/Plan: Consider new class of medication (eg Jardience) for potential further reduction in cardiac events. On ACEI. Code(s): E11.9 - TYPE 2 DIABETES MELLITUS WITHOUT COMPLICATIONS Qualifiers: Diabetes mellitus type: type 2 (4) HTN (hypertension) Code(s): I10 - ESSENTIAL (PRIMARY) HYPERTENSION (5) Parkinson disease Assessment/Plan: f/u with neurologist (Dr. Chandler). Code(s): G20 - PARKINSON'S DISEASE (6) Acute on chronic systolic (congestive) heart failure Assessment/Plan: Still with bilateral LE edema, dyspnea on mild exertion, JVD. Continue beta liu, ACEI; furosemide; the latter may be increased to 80 mg bid if BUN/Cr, electrolytes allow. Code(s): I50.23 - ACUTE ON CHRONIC SYSTOLIC (CONGESTIVE) HEART FAILURE (7) History of permanent cardiac pacemaker placement Code(s): Z95.0 - PRESENCE OF CARDIAC PACEMAKER (8) Renal insufficiency Assessment/Plan: F/u BUN/Cr, electrolytes, Is and Os. Code(s): N28.9 - DISORDER OF KIDNEY AND URETER, UNSPECIFIED
[2016-12-14] MEDS: HEPARIN NA (PORCINE) 5,000 UNITS/ML 1ML VIAL SQ SCH ×2 (10:48→22:24)
[2016-12-14] MEDS: ASPIRIN 81 MG CHEWABLE TABLETS PO SCH (10:48)
[2016-12-14] MEDS: RAMIPRIL 5 MG CAPSULE (FP) PO SCH (10:49)
[2016-12-14] MEDS: CARVEDILOL 3.125 MG TABLET (FP) PO SCH ×2 (10:49→22:24)
[2016-12-14] MEDS: POLYETHYLENE GLYCOL 3350 119 GM BTL PO SCH ×2 (10:52→22:28)
[2016-12-14] MEDS ORDERED: INSULIN (NOVOLOG) ASPART 100 UNITS/ML 10ML VIAL ONE ×2 (11:17→18:06)
[2016-12-14] MEDS ORDERED: PT OWN MED DRAWER 7, Y5N ONE ×3 (11:19→18:07)
[2016-12-14] MEDS: POTASSIUM CHLORIDE TABS 10 MEQ TABLET.ER (FP) PO SCH ×2 (11:22→22:24)
[2016-12-14] MEDS: PRAMIPEXOLE DIHYDROCHLORIDE 0.25 MG TABLET PO SCH ×4 (11:23→22:25)
[2016-12-14 11:30] LABS: CALCIUM 9.5 mg/dL (8.5-10.1); COCKROFT - GAULT 58.79; CREATININE 1.5 mg/dL (0.7-1.3)
--- NOTE | 2016-12-14 12:43 | PN ---
Progress Note, Physician History of Present Illness: feels better no cp - Current Medication List Current Medications: Active Medications Acetaminophen (Tylenol -) 650 mg PO Q4H PRN PRN Reason: FEVER OR PAIN Aspirin (Asa -) 81 mg PO DAILY [facility] Last Admin: 12/14/16 10:48 Dose: 81 mg Atorvastatin Calcium (Lipitor -) 20 mg PO HS [facility] Last Admin: 12/13/16 21:25 Dose: 20 mg Carbidopa/Levodopa (Sinemet *Cr* 25/100 -) 2 combo PO 0700,1100,1500,1900 [facility] Last Admin: 12/14/16 10:51 Dose: 2 combo Carvedilol (Coreg -) 3.125 mg PO BID [facility] Last Admin: 12/14/16 10:49 Dose: 3.125 mg Furosemide (Lasix Injection -) 40 mg IVPUSH BID@0600,1400 [facility] Last Admin: 12/14/16 06:08 Dose: 40 mg Gabapentin (Neurontin -) 100 mg PO TID [facility] Last Admin: 12/14/16 06:08 Dose: 100 mg Heparin Sodium (Porcine) (Heparin -) 5,000 unit SQ BID [facility] Last Admin: 12/14/16 10:48 Dose: 5,000 unit Insulin Aspart (Novolog Vial Sliding Scale -) 1 vial SQ ACHS [facility] PRN Reason: Protocol Last Admin: 12/14/16 11:24 Dose: 5 units Insulin Detemir (Levemir Vial) 25 units SQ ACBK [facility] Non-Formulary Medication (Linaclotide [Linzess]) 290 mcg PO DAILY [facility] Non-Formulary Medication (Naloxegol Oxalate [Movantik]) 25 mg PO DAILY [facility] Polyethylene Glycol (Miralax (For Daily Use) -) 34 gm PO BID [facility] Last Admin: 12/14/16 10:52 Dose: 17 gm Potassium Chloride (K-Dur -) 10 meq PO BID [facility] Last Admin: 12/14/16 11:22 Dose: 10 meq Pramipexole Dihydrochloride (Mirapex -) 0.75 mg PO HS [facility] Last Admin: 12/13/16 21:26 Dose: 0.75 mg Pramipexole Dihydrochloride (Mirapex -) 0.25 mg PO 0700,1100,1500,1900 [facility] Last Admin: 12/14/16 11:23 Dose: 0.25 mg Ramipril (Altace -) 5 mg PO DAILY [facility] Last Admin: 12/14/16 10:49 Dose: 5 mg Sitagliptin Phosphate (Januvia -) 100 mg PO ACBK [facility] Last Admin: 12/14/16 06:08 Dose: 100 mg - Objective Vital Signs: Vital Signs Temperature 97.8 F 12/14/16 08:40 Pulse Rate 70 12/14/16 08:40 Respiratory Rate 18 12/14/16 06:00 Blood Pressure 117/57 12/14/16 08:40 O2 Sat by Pulse Oximetry (%) 96 12/13/16 21:00 Cardiovascular: Yes: Regular Rate and Rhythm Respiratory: Yes: Regular, CTA Bilaterally Gastrointestinal: Yes: Normal Bowel Sounds, Soft. No: Tenderness Edema: Yes Labs: CBC, BMP 12/13/16 05:35 12/14/16 10:35 Problem List - Problems (1) CHF (congestive heart failure) Assessment/Plan: IV LASIX ECHO NOTED MOD LV DYSFUNCTION--EF 41% MONITOR LABS ADD COREG AND ALTACE CXR Code(s): I50.9 - HEART FAILURE, UNSPECIFIED Qualifiers: Congestive heart failure type: systolic Congestive heart failure chronicity: acute on chronic Qualified Code(s): I50.23 - Acute on chronic systolic (congestive) heart failure (2) CAD (coronary artery disease) Code(s): I25.10 - ATHSCL HEART DISEASE OF [place] CORONARY ARTERY W/O ANG PCTRS (3) Constipation Assessment/Plan: GI ON CASE ENEMA PT TOOK [place] OF MAG ON HIS OWN Code(s): K59.00 - CONSTIPATION, UNSPECIFIED Qualifiers: Constipation type: unspecified constipation type Qualified Code(s): K59.00 - Constipation, unspecified (4) Diabetes Assessment/Plan: BGM Code(s): E11.9 - TYPE 2 DIABETES MELLITUS WITHOUT COMPLICATIONS Qualifiers: Diabetes mellitus type: type 2 (5) Parkinson disease Assessment/Plan: SAME MEDS NEURO CONSULT NOTED Code(s): G20 - PARKINSON'S DISEASE
[2016-12-14 13:43] LABS: MAGNESIUM 2.8 mg/dL (1.8-2.4)
--- NOTE | 2016-12-14 20:55 | PN ---
GI Progress Note Subjective: abdominal pain and distention resolved, good results with Miralax and Linzess - Objective Vital Signs: Vital Signs Temperature 98.0 F 12/14/16 18:00 Pulse Rate 71 12/14/16 18:00 Respiratory Rate 18 12/14/16 18:00 Blood Pressure 120/85 12/14/16 18:00 O2 Sat by Pulse Oximetry (%) 95 12/14/16 09:00 Constitutional: Well Nourished Eyes: Yes: Conjunctiva Clear HENT: Yes: Atraumatic Neck: Yes: Supple Cardiovascular: Yes: Regular Rate and Rhythm Respiratory: Yes: CTA Bilaterally ...Palpate: Yes: Soft. No: Firm/Rigid, Guarding, Hepatomegaly, Mass, Pulsatile Mass, Splenomegaly, Tenderness Labs: CBC, BMP 12/13/16 05:35 12/14/16 10:35 Hepatic Panel Total Bilirubin 0.6 mg/dL (0.2-1.0) 12/13/16 05:35 AST 26 U/L (15-37) 12/13/16 05:35 ALT 29 U/L (12-78) D 12/13/16 05:35 Alkaline Phosphatase 81 U/L (45-117) 12/13/16 05:35 Albumin 3.8 g/dl (3.4-5.0) 12/13/16 05:35 Problem List - Problems (1) Constipation by delayed colonic transit Assessment/Plan: R> contnue Miralax and Linzess Code(s): K59.01 - SLOW TRANSIT CONSTIPATION
[2016-12-14] MEDS: ATORVASTATIN CA 20 MG TABLET (FP) PO SCH (22:24)
[2016-12-15] MEDS: PRAMIPEXOLE DIHYDROCHLORIDE 0.25 MG TABLET PO SCH ×6 (06:02→22:51)
[2016-12-15] MEDS: sitaGLIPtin PHOSPHATE 100 MG TABLET (FP) PO SCH (06:03)
[2016-12-15] MEDS: FUROSEMIDE 40 MG/4 ML INJECTABLE VIAL IVPUSH SCH ×2 (06:03→14:44)
[2016-12-15] MEDS: GABAPENTIN 100 MG CAPSULE (FP) PO SCH ×3 (06:03→21:17)
[2016-12-15] MEDS: INSULIN SLIDING SCALE (NOVOLOG) 1 VIAL SQ SCH ×4 (06:04→21:25)
[2016-12-15] MEDS: INSULIN DETEMIR 100 UNITS/ML MDV SQ SCH (07:36)
[2016-12-15 09:17] LABS: ALBUMIN 3.8 g/dl (3.4-5.0); BILIRUBIN,TOTAL 0.6 mg/dL (0.2-1.0); CALCIUM 8.7 mg/dL (8.5-10.1); COCKROFT - GAULT 62.99; CREATININE 1.4 mg/dL (0.7-1.3); TOT PROT 6.7 g/dl (6.4-8.2)
[2016-12-15] MEDS: POTASSIUM CHLORIDE TABS 10 MEQ TABLET.ER (FP) PO SCH ×2 (09:55→21:17)
[2016-12-15] MEDS: CARVEDILOL 3.125 MG TABLET (FP) PO SCH ×2 (09:55→21:18)
[2016-12-15] MEDS: RAMIPRIL 5 MG CAPSULE (FP) PO SCH (09:55)
[2016-12-15] MEDS: HEPARIN NA (PORCINE) 5,000 UNITS/ML 1ML VIAL SQ SCH ×2 (09:56→21:18)
[2016-12-15] MEDS: ASPIRIN 81 MG CHEWABLE TABLETS PO SCH (09:56)
[2016-12-15] MEDS: POLYETHYLENE GLYCOL 3350 119 GM BTL PO SCH ×2 (09:57→22:51)
--- NOTE | 2016-12-15 11:15 | PN ---
Progress Note, Physician History of Present Illness: seen and examined today in nad. no overnight events. no new complaints. - Current Medication List Current Medications: Active Medications Acetaminophen (Tylenol -) 650 mg PO Q4H PRN PRN Reason: FEVER OR PAIN Aspirin (Asa -) 81 mg PO DAILY [facility] Last Admin: 12/15/16 09:56 Dose: 81 mg Atorvastatin Calcium (Lipitor -) 20 mg PO HS [facility] Last Admin: 12/14/16 22:24 Dose: 20 mg Carbidopa/Levodopa (Sinemet *Cr* 25/100 -) 2 combo PO 0700,1100,1500,1900 [facility] Last Admin: 12/15/16 10:01 Dose: 2 combo Carvedilol (Coreg -) 3.125 mg PO BID [facility] Last Admin: 12/15/16 09:55 Dose: 3.125 mg Furosemide (Lasix Injection -) 40 mg IVPUSH BID@0600,1400 [facility] Last Admin: 12/15/16 06:03 Dose: 40 mg Gabapentin (Neurontin -) 100 mg PO TID [facility] Last Admin: 12/15/16 06:03 Dose: 100 mg Heparin Sodium (Porcine) (Heparin -) 5,000 unit SQ BID [facility] Last Admin: 12/15/16 09:56 Dose: 5,000 unit Insulin Aspart (Novolog Vial Sliding Scale -) 1 vial SQ ACHS [facility] PRN Reason: Protocol Last Admin: 12/15/16 06:04 Dose: Not Given Insulin Detemir (Levemir Vial) 25 units SQ ACBK [facility] Last Admin: 12/15/16 07:36 Dose: Not Given Non-Formulary Medication (Linaclotide [Linzess]) 290 mcg PO DAILY [facility] Non-Formulary Medication (Naloxegol Oxalate [Movantik]) 25 mg PO DAILY [facility] Polyethylene Glycol (Miralax (For Daily Use) -) 34 gm PO BID [facility] Last Admin: 12/15/16 09:57 Dose: 34 gm Potassium Chloride (K-Dur -) 10 meq PO BID [facility] Last Admin: 12/15/16 09:55 Dose: 10 meq Pramipexole Dihydrochloride (Mirapex -) 0.75 mg PO HS [facility] Last Admin: 12/14/16 22:25 Dose: 0.75 mg Pramipexole Dihydrochloride (Mirapex -) 0.25 mg PO 0700,1100,1500,1900 [facility] Last Admin: 12/15/16 10:01 Dose: 0.25 mg Ramipril (Altace -) 5 mg PO DAILY [facility] Last Admin: 12/15/16 09:55 Dose: 5 mg Sitagliptin Phosphate (Januvia -) 100 mg PO ACBK [facility] Last Admin: 12/15/16 06:03 Dose: 100 mg - Objective Vital Signs: Vital Signs Temperature 97.7 F 12/15/16 06:00 Pulse Rate 62 12/15/16 06:00 Respiratory Rate 18 12/15/16 06:00 Blood Pressure 131/59 12/15/16 06:00 O2 Sat by Pulse Oximetry (%) 99 12/14/16 21:00 Constitutional: Yes: No Distress, Calm, Obese Eyes: Yes: Conjunctiva Clear, EOM Intact, PERRL HENT: Yes: Atraumatic, Normocephalic Neck: Yes: Supple, Trachea Midline Cardiovascular: Yes: Regular Rate and Rhythm, S1, S2. No: Bradycardia, Tachycardia, Pulse Irregular, Bruit, JVD, Gallop, Murmur, Rub, S3, S4, Varicosities Respiratory: Yes: Regular, Diminished, Rales, Rhonchi. No: SOB, Wheezes Gastrointestinal: Yes: Normal Bowel Sounds, Soft. No: Distention, Tenderness Musculoskeletal: Yes: Muscle Weakness Extremities: Yes: WNL Edema: Yes Edema: LLE: 2+, RLE: 2+ Peripheral Pulses WNL: Yes Peripheral Pulses: Left Doralis Pedis: 2+, Right Dorsalis Pedis: 2+ Integumentary: Yes: WNL Neurological: Yes: Alert, Oriented Psychiatric: Yes: Alert, Oriented Labs: CBC, BMP 12/13/16 05:35 12/15/16 05:35 - ....Imaging Chest X-ray: Report Reviewed, Image Reviewed EKG: Report Reviewed, Image Reviewed Other: Report Reviewed, Image Reviewed (tele-nsr, vpaced) Assessment/Plan 71 year old man with a history of HTN, HLD, DM, CAD s/p PCI LAD 2007 and again 2012, repeat cardiac cath 05/2014 showed patent LAD stents an only non- obstructive CAD in the other coronary territories, PPM, Chronic diastolic HF, Parkinsons disease, non-adherent with follow up, has not been to the office in several years, last seen here in the hospital 2 years ago with c/o dizziness, he has since undergone a PPM placement at an outside facility now admitted with constipation, sob, edema. SOB/Edema-acute on chronic systolic HF-chronic LE edema, likely component of chronic venous insufficiency -as bun/creat are rising and Cxr shows no sig pulm edema, would transition back to po Lasix -persistent LE edema likely due to chronic venous insufficiency, would recc leg elevation and consideration for compression stockings -echo shows moderate LV systolic dysfx -ok from a cardiac standpoint for discharge home with close outpatient follow up -if remains inpatient can dc tele Dizziness-chronic, multiple possible etiologies, likely related to Parkinsons and possible orthostatic hypotension -PPM functioning appropriately on telemetry review -neuro evaluation for Parkinsons disease appreciated -carotid doppler done 11/21/14-no sign of atherosclerotic disease on either side , no evidence of hemodynamically sig internal carotid artery stenosis on either side -check orthostatic BP -no sig arrhythmias on telemetry during admission CAD-prior PCI LAD 2007 and 2012, cath 2013 with no sig restenosis and otherwise non-obs CAD -cont with home medical regimen -would be helpful to review results of any tests done at outside retail advisor office, pt did not know name of the other retail advisor he was seeing -cont ASA, Lipitor, Coreg, Ramipril
--- NOTE | 2016-12-15 18:24 | PN ---
Progress Note, Physician History of Present Illness: Pt alert. No dyspnea or chest pain. No palpitations. Sitting out of bed in chair. - Current Medication List Current Medications: Active Medications Acetaminophen (Tylenol -) 650 mg PO Q4H PRN PRN Reason: FEVER OR PAIN Aspirin (Asa -) 81 mg PO DAILY [facility] Last Admin: 12/15/16 09:56 Dose: 81 mg Atorvastatin Calcium (Lipitor -) 20 mg PO HS [facility] Last Admin: 12/14/16 22:24 Dose: 20 mg Carbidopa/Levodopa (Sinemet *Cr* 25/100 -) 2 combo PO 0700,1100,1500,1900 [facility] Last Admin: 12/15/16 17:19 Dose: 2 combo Carvedilol (Coreg -) 3.125 mg PO BID [facility] Last Admin: 12/15/16 09:55 Dose: 3.125 mg Furosemide (Lasix Injection -) 40 mg IVPUSH BID@0600,1400 [facility] Last Admin: 12/15/16 14:44 Dose: 40 mg Gabapentin (Neurontin -) 100 mg PO TID [facility] Last Admin: 12/15/16 14:45 Dose: 100 mg Heparin Sodium (Porcine) (Heparin -) 5,000 unit SQ BID [facility] Last Admin: 12/15/16 09:56 Dose: 5,000 unit Insulin Aspart (Novolog Vial Sliding Scale -) 1 vial SQ ACHS [facility] PRN Reason: Protocol Last Admin: 12/15/16 16:14 Dose: 10 units Insulin Detemir (Levemir Vial) 25 units SQ ACBK [facility] Last Admin: 12/15/16 07:36 Dose: Not Given Non-Formulary Medication (Linaclotide [Linzess]) 290 mcg PO DAILY [facility] Non-Formulary Medication (Naloxegol Oxalate [Movantik]) 25 mg PO DAILY [facility] Polyethylene Glycol (Miralax (For Daily Use) -) 34 gm PO BID [facility] Last Admin: 12/15/16 09:57 Dose: 34 gm Potassium Chloride (K-Dur -) 10 meq PO BID [facility] Last Admin: 12/15/16 09:55 Dose: 10 meq Pramipexole Dihydrochloride (Mirapex -) 0.75 mg PO HS [facility] Last Admin: 12/14/16 22:25 Dose: 0.75 mg Pramipexole Dihydrochloride (Mirapex -) 0.25 mg PO 0700,1100,1500,1900 [facility] Last Admin: 12/15/16 17:18 Dose: 0.25 mg Ramipril (Altace -) 5 mg PO DAILY [facility] Last Admin: 12/15/16 09:55 Dose: 5 mg Sitagliptin Phosphate (Januvia -) 100 mg PO ACBK [facility] Last Admin: 12/15/16 06:03 Dose: 100 mg - Objective Vital Signs: Vital Signs Temperature 96.3 F L 12/15/16 17:00 Pulse Rate 60 12/15/16 17:00 Respiratory Rate 20 12/15/16 17:00 Blood Pressure 120/64 12/15/16 17:00 O2 Sat by Pulse Oximetry (%) 98 12/15/16 10:00 Constitutional: Yes: No Distress Eyes: No: Sclera Icterus HENT: Yes: Atraumatic, Normocephalic Neck: Yes: Supple, Trachea Midline Cardiovascular: Yes: Regular Rate and Rhythm. No: JVD Respiratory: Yes: Rales (few rales right base) Labs: CBC, BMP 12/13/16 05:35 12/15/16 05:35 Problem List - Problems (1) Acute on chronic systolic (congestive) heart failure Code(s): I50.23 - ACUTE ON CHRONIC SYSTOLIC (CONGESTIVE) HEART FAILURE (2) Constipation by delayed colonic transit Code(s): K59.01 - SLOW TRANSIT CONSTIPATION (3) COPD (chronic obstructive pulmonary disease) Code(s): J44.9 - CHRONIC OBSTRUCTIVE PULMONARY DISEASE, UNSPECIFIED Assessment/Plan 71 year old man admitted with heart failure. PMH significant for CAD, Parkinson' s and mild obstructive airway disease. Pt is improved post tx with increased diuretic. Respiratory status remains stable. Suggest: continue current treatments Albuterol nebulizer q 4 hours prn Maintain SaO2 > 90 T
[2016-12-15] MEDS: ATORVASTATIN CA 20 MG TABLET (FP) PO SCH (21:17)
--- NOTE | 2016-12-15 21:52 | PN ---
Progress Note, Physician Chief Complaint: AWAKE EATING WITH NURSE DENIES CHEST PAIN OR SOB - Current Medication List Current Medications: Active Medications Acetaminophen (Tylenol -) 650 mg PO Q4H PRN PRN Reason: FEVER OR PAIN Aspirin (Asa -) 81 mg PO DAILY [facility] Last Admin: 12/15/16 09:56 Dose: 81 mg Atorvastatin Calcium (Lipitor -) 20 mg PO HS [facility] Last Admin: 12/15/16 21:17 Dose: 20 mg Carbidopa/Levodopa (Sinemet *Cr* 25/100 -) 2 combo PO 0700,1100,1500,1900 [facility] Last Admin: 12/15/16 18:45 Dose: Not Given Carvedilol (Coreg -) 3.125 mg PO BID [facility] Last Admin: 12/15/16 21:18 Dose: 3.125 mg Furosemide (Lasix Injection -) 40 mg IVPUSH BID@0600,1400 [facility] Last Admin: 12/15/16 14:44 Dose: 40 mg Gabapentin (Neurontin -) 100 mg PO TID [facility] Last Admin: 12/15/16 21:17 Dose: 100 mg Heparin Sodium (Porcine) (Heparin -) 5,000 unit SQ BID [facility] Last Admin: 12/15/16 21:18 Dose: 5,000 unit Insulin Aspart (Novolog Vial Sliding Scale -) 1 vial SQ ACHS [facility] PRN Reason: Protocol Last Admin: 12/15/16 21:25 Dose: Not Given Insulin Detemir (Levemir Vial) 25 units SQ ACBK [facility] Last Admin: 12/15/16 07:36 Dose: Not Given Non-Formulary Medication (Linaclotide [Linzess]) 290 mcg PO DAILY [facility] Non-Formulary Medication (Naloxegol Oxalate [Movantik]) 25 mg PO DAILY [facility] Polyethylene Glycol (Miralax (For Daily Use) -) 34 gm PO BID [facility] Last Admin: 12/15/16 09:57 Dose: 34 gm Potassium Chloride (K-Dur -) 10 meq PO BID [facility] Last Admin: 12/15/16 21:17 Dose: 10 meq Pramipexole Dihydrochloride (Mirapex -) 0.75 mg PO HS [facility] Last Admin: 12/14/16 22:25 Dose: 0.75 mg Pramipexole Dihydrochloride (Mirapex -) 0.25 mg PO 0700,1100,1500,1900 [facility] Last Admin: 12/15/16 18:44 Dose: Not Given Ramipril (Altace -) 5 mg PO DAILY [facility] Last Admin: 12/15/16 09:55 Dose: 5 mg Sitagliptin Phosphate (Januvia -) 100 mg PO ACBK [facility] Last Admin: 12/15/16 06:03 Dose: 100 mg - Objective Vital Signs: Vital Signs Temperature 96.3 F L 12/15/16 17:00 Pulse Rate 60 12/15/16 17:00 Respiratory Rate 20 12/15/16 17:00 Blood Pressure 120/64 12/15/16 17:00 O2 Sat by Pulse Oximetry (%) 98 12/15/16 10:00 Constitutional: Yes: No Distress Eyes: Yes: WNL HENT: Yes: WNL Neck: Yes: WNL Cardiovascular: Yes: WNL Respiratory: Yes: On Nasal O2, SOB Gastrointestinal: Yes: WNL Genitourinary: Yes: WNL Musculoskeletal: Yes: Muscle Weakness Extremities: Yes: WNL Edema: Yes Edema: LLE: 2+, RLE: 2+ Peripheral Pulses WNL: Yes Integumentary: Yes: WNL Wound/Incision: Yes: Clean/Dry Neurological: Yes: Pre-Existing Deficit, Unsteady Gait ...Motor Strength: LLE, RLE Psychiatric: Yes: Other Labs: CBC, BMP 12/13/16 05:35 12/15/16 05:35 Problem List - Problems (1) Acute on chronic systolic (congestive) heart failure Code(s): I50.23 - ACUTE ON CHRONIC SYSTOLIC (CONGESTIVE) HEART FAILURE (2) CAD (coronary artery disease) Code(s): I25.10 - ATHSCL HEART DISEASE OF [place] CORONARY ARTERY W/O ANG PCTRS (3) CHF (congestive heart failure) Code(s): I50.9 - HEART FAILURE, UNSPECIFIED Qualifiers: Congestive heart failure type: systolic Congestive heart failure chronicity: acute on chronic Qualified Code(s): I50.23 - Acute on chronic systolic (congestive) heart failure (4) COPD (chronic obstructive pulmonary disease) Code(s): J44.9 - CHRONIC OBSTRUCTIVE PULMONARY DISEASE, UNSPECIFIED (5) Diabetes Code(s): E11.9 - TYPE 2 DIABETES MELLITUS WITHOUT COMPLICATIONS Qualifiers: Diabetes mellitus type: type 2 (6) History of permanent cardiac pacemaker placement Code(s): Z95.0 - PRESENCE OF CARDIAC PACEMAKER (7) Parkinson disease Code(s): G20 - PARKINSON'S DISEASE (8) Renal insufficiency Code(s): N28.9 - DISORDER OF KIDNEY AND URETER, UNSPECIFIED Assessment/Plan 02 SUPPORT NC02 2L IV DIURESIS DAILY [facility]OB TO CHAIR [facility] FOR CARDIOPUL[facility] REHAB ACUTE ON CHRONIC SYSTOLIC CHF, CARDIO F/U APPRECIATED
[2016-12-16] MEDS: GABAPENTIN 100 MG CAPSULE (FP) PO SCH ×2 (06:12→14:04)
[2016-12-16] MEDS: FUROSEMIDE 40 MG/4 ML INJECTABLE VIAL IVPUSH SCH (06:12)
[2016-12-16] MEDS: INSULIN SLIDING SCALE (NOVOLOG) 1 VIAL SQ SCH ×2 (06:14→11:33)
--- NOTE | 2016-12-16 06:17 | DS ---
Physical Examination Vital Signs: Vital Signs Temperature 97.5 F L 12/16/16 06:00 Pulse Rate 71 12/16/16 06:00 Respiratory Rate 20 12/16/16 06:00 Blood Pressure 138/72 12/16/16 06:00 O2 Sat by Pulse Oximetry (%) 98 12/15/16 21:00 comfortable, nad Constitutional: Yes: No Distress Eyes: Yes: WNL HENT: Yes: WNL Neck: Yes: WNL Cardiovascular: Yes: Murmur Respiratory: Yes: Diminished, On Nasal O2 Gastrointestinal: Yes: WNL Renal/: Yes: WNL Musculoskeletal: Yes: Muscle Weakness Extremities: Yes: WNL Edema: Yes Edema: LLE: 2+, RLE: 2+ Peripheral Pulses WNL: Yes Integumentary: Yes: WNL Wound/Incision: Yes: Clean/Dry Neurological: Yes: Pre-Existing Deficit, Unsteady Gait, Weakness ...Motor Strength: LLE, RLE Psychiatric: Yes: Other Labs: CBC, BMP 12/13/16 05:35 12/15/16 05:35 Discharge Summary Reason For Visit: DIZZINESS,LIGHTHEADEDNESS,CHF Current Active Problems Acute on chronic systolic (congestive) heart failure (Acute) Bifascicular block (Acute) CAD (coronary artery disease) (Acute) CHF (congestive heart failure) (Acute) COPD (chronic obstructive pulmonary disease) (Acute) Constipation (Acute) Constipation by delayed colonic transit (Acute) Diabetes (Acute) Dizziness (Acute) HTN (hypertension) (Acute) History of permanent cardiac pacemaker placement (Acute) Lightheaded (Acute) Parkinson disease (Acute) Renal insufficiency (Acute) Procedures: Principal: echo Other Procedures: labs Hospital Course: acute on chronic diastolic heart failure, dm, copd asthma, here with dyspnea, was given iv lasix for diuresis down 8lbs, improved symptoms however will need cardio-pulmonary rehab at [facility]. Condition: Fair - Instructions Diet, Activity, Other Instructions: ada low sodium Referrals: Nikolai Gutierrez MD [Primary Care Provider] - Disposition: [facility] - Home Medications Comprehensive Discharge Medication List: Ambulatory Orders Furosemide [Lasix -] 40 mg PO DAILY 08/08/16 Gabapentin 100 mg PO TID 08/08/16 Linagliptin [Tradjenta] 5 mg PO DAILY 08/08/16 Mirabegron [Myrbetriq] 50 mg PO DAILY 08/08/16 Atorvastatin Ca [Lipitor] 20 mg PO DAILY 12/11/16 Carbidopa/Levodopa [Carbidopa-Levodopa 25-100 Tab] 1 each PO Q4H 12/11/16 Insulin Glargine,Hum.rec.anlog [Lantus (nf)] 50 units SQ AM 12/11/16 Linaclotide [Linzess] 290 mcg PO DAILY 12/11/16 Naloxegol Oxalate [Movantik] 25 mg PO DAILY 12/11/16 Potassium Chloride [Klor-Con 10] 10 meq PO BID 12/11/16 Pramipexole Di-HCl [Pramipexole Dihydrochloride] 0.75 mg PO ASDIR 12/11/16
[2016-12-16] MEDS: INSULIN DETEMIR 100 UNITS/ML MDV SQ SCH (06:21)
[2016-12-16] MEDS: sitaGLIPtin PHOSPHATE 100 MG TABLET (FP) PO SCH (06:21)
[2016-12-16] MEDS: PRAMIPEXOLE DIHYDROCHLORIDE 0.25 MG TABLET PO SCH ×3 (06:50→15:38)
--- NOTE | 2016-12-16 09:35 | PN ---
Progress Note, Physician Chief Complaint: no distress Feels well Denies chest pain or SOB - Current Medication List Current Medications: Active Medications Acetaminophen (Tylenol -) 650 mg PO Q4H PRN PRN Reason: FEVER OR PAIN Aspirin (Asa -) 81 mg PO DAILY [facility] Last Admin: 12/15/16 09:56 Dose: 81 mg Atorvastatin Calcium (Lipitor -) 20 mg PO HS [facility] Last Admin: 12/15/16 21:17 Dose: 20 mg Carbidopa/Levodopa (Sinemet *Cr* 25/100 -) 2 combo PO 0700,1100,1500,1900 [facility] Last Admin: 12/16/16 06:19 Dose: 2 combo Carvedilol (Coreg -) 3.125 mg PO BID [facility] Last Admin: 12/15/16 21:18 Dose: 3.125 mg Furosemide (Lasix -) 40 mg PO BID@0600,1400 [facility] Gabapentin (Neurontin -) 100 mg PO TID [facility] Last Admin: 12/16/16 06:12 Dose: 100 mg Heparin Sodium (Porcine) (Heparin -) 5,000 unit SQ BID [facility] Last Admin: 12/15/16 21:18 Dose: 5,000 unit Insulin Aspart (Novolog Vial Sliding Scale -) 1 vial SQ ACHS [facility] PRN Reason: Protocol Last Admin: 12/16/16 06:14 Dose: Not Given Insulin Detemir (Levemir Vial) 25 units SQ ACBK [facility] Last Admin: 12/16/16 06:21 Dose: 25 units Non-Formulary Medication (Linaclotide [Linzess]) 290 mcg PO DAILY [facility] Non-Formulary Medication (Naloxegol Oxalate [Movantik]) 25 mg PO DAILY [facility] Polyethylene Glycol (Miralax (For Daily Use) -) 34 gm PO BID [facility] Last Admin: 12/15/16 22:51 Dose: 34 gm Potassium Chloride (K-Dur -) 10 meq PO BID [facility] Last Admin: 12/15/16 21:17 Dose: 10 meq Pramipexole Dihydrochloride (Mirapex -) 0.75 mg PO HS [facility] Last Admin: 12/15/16 22:51 Dose: 0.75 mg Pramipexole Dihydrochloride (Mirapex -) 0.25 mg PO 0700,1100,1500,1900 [facility] Last Admin: 12/16/16 06:50 Dose: 0.25 mg Ramipril (Altace -) 5 mg PO DAILY [facility] Last Admin: 12/15/16 09:55 Dose: 5 mg Sitagliptin Phosphate (Januvia -) 100 mg PO ACBK [facility] Last Admin: 12/16/16 06:21 Dose: 100 mg - Objective Vital Signs: Vital Signs Temperature 97.5 F L 12/16/16 06:00 Pulse Rate 71 12/16/16 06:00 Respiratory Rate 20 12/16/16 06:00 Blood Pressure 138/72 12/16/16 06:00 O2 Sat by Pulse Oximetry (%) 98 12/15/16 21:00 Constitutional: Yes: No Distress Cardiovascular: Yes: Regular Rate and Rhythm Respiratory: Yes: CTA Bilaterally Gastrointestinal: Yes: Soft Edema: Yes Edema: LLE: 1+, RLE: 1+ Neurological: Yes: Alert ...Motor Strength: WNL Labs: CBC, BMP 12/13/16 05:35 12/15/16 05:35 Laboratory Tests 12/15/16 05:35 Potassium 4.3 BUN 43 H Creatinine 1.4 H Assessment/Plan Assessment/Plan 71 year old man with a history of HTN, HLD, DM, CAD s/p PCI LAD 2007 and again 2012, repeat cardiac cath 05/2014 showed patent LAD stents an only non- obstructive CAD in the other coronary territories, PPM, Chronic diastolic HF, Parkinsons disease, non-adherent with follow up, has not been to the office in several years, last seen here in the hospital 2 years ago with c/o dizziness, he has since undergone a PPM placement at an outside facility now admitted with constipation, sob, edema. SOB/Edema-acute on chronic systolic HF-chronic LE edema, likely component of chronic venous insufficiency -as bun/creat are rising and Cxr shows no sig pulm edema, now stable on PO Lasix -persistent LE edema likely due to chronic venous insufficiency, would recc leg elevation and consideration for compression stockings -echo shows moderate LV systolic dysfx -ok for discharge from cardiac standpoint Dizziness-chronic, multiple possible etiologies, likely related to Parkinsons and possible orthostatic hypotension -PPM functioning appropriately on telemetry review -neuro evaluation for Parkinsons disease appreciated -carotid doppler done 11/21/14-no sign of atherosclerotic disease on either side , no evidence of hemodynamically sig internal carotid artery stenosis on either side CAD-prior PCI LAD 2007 and 2012, cath 2013 with no sig restenosis and otherwise non-obs CAD -cont with home medical regimen -cont ASA, Lipitor, Coreg, Ramipril
[2016-12-16] MEDS ORDERED: PT OWN MED DRAWER 7, Y5N ONE (09:50)
[2016-12-16] MEDS: RAMIPRIL 5 MG CAPSULE (FP) PO SCH (09:54)
[2016-12-16] MEDS: CARVEDILOL 3.125 MG TABLET (FP) PO SCH (09:55)
[2016-12-16] MEDS: ASPIRIN 81 MG CHEWABLE TABLETS PO SCH (09:55)
[2016-12-16] MEDS: HEPARIN NA (PORCINE) 5,000 UNITS/ML 1ML VIAL SQ SCH (09:55)
[2016-12-16] MEDS: POTASSIUM CHLORIDE TABS 10 MEQ TABLET.ER (FP) PO SCH (09:56)
[2016-12-16] MEDS: POLYETHYLENE GLYCOL 3350 119 GM BTL PO SCH (11:29)
[2016-12-16 11:55] VITALS: BP 136/61
[2016-12-16 13:46] VITALS: PULSE 60; TEMP 97.6
[2016-12-16] MEDS ORDERED: FUROSEMIDE 40 MG TABLET (FP) PO SCH (14:00)
--- NOTE | 2016-12-16 15:14 | PN ---
Progress Note (short form) - Note Progress Note: PATIENT SEEN AND EXAMINED WILL DC HOME WITH VNS CARE, F/U OUTPATIENT IN 1 WEEK Problem List - Problems (1) Acute on chronic systolic (congestive) heart failure Code(s): I50.23 - ACUTE ON CHRONIC SYSTOLIC (CONGESTIVE) HEART FAILURE (2) CAD (coronary artery disease) Code(s): I25.10 - ATHSCL HEART DISEASE OF [place] CORONARY ARTERY W/O ANG PCTRS (3) CHF (congestive heart failure) Code(s): I50.9 - HEART FAILURE, UNSPECIFIED Qualifiers: Congestive heart failure type: systolic Congestive heart failure chronicity: acute on chronic Qualified Code(s): I50.23 - Acute on chronic systolic (congestive) heart failure (4) COPD (chronic obstructive pulmonary disease) Code(s): J44.9 - CHRONIC OBSTRUCTIVE PULMONARY DISEASE, UNSPECIFIED (5) Diabetes Code(s): E11.9 - TYPE 2 DIABETES MELLITUS WITHOUT COMPLICATIONS Qualifiers: Diabetes mellitus type: type 2 (6) History of permanent cardiac pacemaker placement Code(s): Z95.0 - PRESENCE OF CARDIAC PACEMAKER (7) Parkinson disease Code(s): G20 - PARKINSON'S DISEASE (8) Renal insufficiency Code(s): N28.9 - DISORDER OF KIDNEY AND URETER, UNSPECIFIED
== END 2016-12-16 16:12 | disposition home health service (06) | DRG 292 ==
LOC: JER 09:32 → JERBED 13:43 → J4W 17:46 → J6S 12-15 19:53
PROVIDERS: ADMIT Family Medicine; ATTEND Family Medicine
DX: I11.0 Hypertensive heart disease with heart failure (principal); N17.9 Acute kidney failure, unspecified; I50.23 Acute on chronic systolic (congestive) heart failure; I25.10 Atherosclerotic heart disease of native coronary artery without angina pectoris; G20 Parkinson's disease; E11.42 Type 2 diabetes mellitus with diabetic polyneuropathy; Z79.4 Long term (current) use of insulin; R42 Dizziness and giddiness; K59.01 Slow transit constipation; Z95.0 Presence of cardiac pacemaker; I48.91 Unspecified atrial fibrillation; E78.5 Hyperlipidemia, unspecified; J44.9 Chronic obstructive pulmonary disease, unspecified; M48.07 Spinal stenosis, lumbosacral region; E66.9 Obesity, unspecified; F41.9 Anxiety disorder, unspecified; Z95.5 Presence of coronary angioplasty implant and graft; I87.2 Venous insufficiency (chronic) (peripheral); Z68.33 Body mass index [BMI] 33.0-33.9, adult
CPT/HCPCS: 36415; 71010-TC; 71020-TC; 74000-TC; 80048; 80053; 80061; 81003; 81015; 82550; 82553; 83036; 83721; 83735; 83880; 84443; 84484; 85025; 93005; 93010; 93306-TC; 97116-GP; 97161-GP; 99284-25; J1644

== ENCOUNTER 2019-04-21 14:35 | Emergency (ER) | payer OTHER, MEDICARE ==
[2019-04-21 14:50] VITALS: BP 138/63; PULSE 82; TEMP 97.6; BMI 33.3
--- NOTE | 2019-04-21 14:51 | PDOC ---
Rapid Medical Evaluation Chief Complaint: Urinary Problem Time Seen by Provider: 04/21/19 14:45 Medical Evaluation: Allergies Allergy/AdvReac Type Severity Reaction Status Date / Time No Known Drug Allergies Allergy Verified 04/21/19 14:44 04/21/19 14:47 73 year old male c/o cough worsening. patient reports that he is urinating on himself with thye severity of cough Dr. suazo: neurology DrStephanie Gutierrez: PCP Dr. Chidi Brooks: urology patient alert ox 3 A: cough P: chest xray ekg ua urine culture Discharge Disposition - Diagnosis Cough - Referrals - Patient Instructions - Post Discharge Activity
[2019-04-21 15:57] LABS: URINE APPEARANCE CLEAR; URINE BILIRUBIN NEGATIVE (NEGATIVE); URINE COLOR YELLOW; URINE GLUCOSE (UA) TRACE (NEGATIVE); URINE KETONE NEGATIVE (NEGATIVE); URINE LEUK ESTERASE NEGATIVE (NEGATIVE); URINE NITRITE NEGATIVE (NEGATIVE); URINE PROTEIN NEGATIVE (NEGATIVE); URINE UROBILINOGEN 0.2 mg/dL (0.2-1.0)
--- NOTE | 2019-04-21 17:18 | PDOC ---
History of Present Illness - General Chief Complaint: Respiratory Stated Complaint: URINARY PROBLEM Time Seen by Provider: 04/21/19 14:45 History Source: Patient Exam Limitations: Other (very poor historian) - History of Present Illness Initial Comments: Pt is a 73 yo M, with PMH of HTN, HLD, DM, PD, COPD, CAD and CHF (with pacemaker and on lasix) and known bladder incontinence, who is presenting from home by car for complaints of incontinence while coughing x1 week. Pt states he was recently on antibiotics (ciprofloxacin 500 mg BID) for a "throat infection" for the cough, which he has been taking as prescribed. Pt states he has some incontinence at baseline, but that he came to the ER because he has been urinating on himself with coughing more from baseline. Pt denies any fevers/ chills, headache, vision changes, syncope, chest pain, palpitations, SOB, orthopnea, nausea/vomiting, abdominal pain, urinary burning or urgency, diarrhea /constipation, or leg swelling that is changed from baseline. Allergies: BRENNAN PCP: Dr. Gutierrez Urology: Dr. Stephens GI: Dr. Cortes Social: Pt denies any cigarette, alcohol, or drug use. Pt denies any recent travel or sick contacts. Surgical: pacemaker placement, bladder? Family: no relevant history. 04/21/19 17:19 04/21/19 17:45 Past History - Travel Traveled outside of the country in the last 30 days: No Close contact w/someone who was outside of country & ill: No - Past Medical History Allergies/Adverse Reactions: Allergies Allergy/AdvReac Type Severity Reaction Status Date / Time No Known Drug Allergies Allergy Verified 04/21/19 14:44 Home Medications: Ambulatory Orders Mirabegron [Myrbetriq] 50 mg PO DAILY 08/08/16 Atorvastatin Ca [Lipitor] 20 mg PO DAILY 12/11/16 Carbidopa/Levodopa [Carbidopa-Levodopa 25-100 Tab] 1 each PO ASDIR 12/11/16 Potassium Chloride [Klor-Con 10] 10 meq PO BID 12/11/16 Pramipexole Di-HCl [Pramipexole Dihydrochloride] 0.5 mg PO ASDIR 12/11/16 Acetaminophen [Tylenol .Regular Strength -] 650 mg PO Q4H PRN #0 tablet Aspirin [ASA -] 81 mg PO DAILY tab.chew 12/16/16 Carvedilol [Coreg -] 3.125 mg PO BID tablet 12/16/16 Furosemide [Lasix -] 40 mg PO BID@0600,1400 tablet 12/16/16 Allopurinol [Zyloprim -] 100 mg PO DAILY 04/21/19 Dexlansoprazole [Dexilant] 60 mg PO DAILY 04/21/19 Insulin Glargine,Hum.rec.anlog [Basaglar Kwikpen U-100] 45 unit SQ DAILY Anemia: No Asthma: No Cancer: No Cardiac Disorders: Yes (PACEMAKER) CVA: No COPD: No CHF: Yes Dementia: No Diabetes: Yes GI Disorders: Yes (GALLBLADDER) Disorders: Yes (ENLARGED PROSTATE) HTN: Yes Hypercholesterolemia: Yes Liver Disease: No Seizures: No Thyroid Disease: No - Surgical History Abdominal Surgery: No Appendectomy: No Cardiac Surgery: Yes (STENTS X2,PACEMAKER) Cholecystectomy: No Lung Surgery: No Neurologic Surgery: No Orthopedic Surgery: No - Immunization History Immunization Up to Date: Yes - Suicide/Smoking/Psychosocial Hx Smoking History: Never smoked Have you smoked in the past 12 months: No Hx Alcohol Use: No Drug/Substance Use Hx: No Substance Use Type: None Hx Substance Use Treatment: No Review of Systems - Review of Systems Able to Perform ROS?: Yes Is the patient limited Sami proficient: No Constitutional: Yes: Weight Stable. No: Chills, Diaphoresis, Fever, Loss of Appetite, Malaise, Weakness HEENTM: Yes: Throat Pain. No: Recent change in vision, Nose Congestion, Throat Swelling, Difficulty Swallowing Respiratory: Yes: See HPI, Cough. No: Orthopnea, Shortness of Breath, Wheezing , Productive cough, Hemoptysis Cardiac (ROS): No: Chest Pain, Edema, Irregular Heart Rate, Lightheadedness, Palpitations, Syncope, Chest Tightness ABD/GI: No: Constipated, Diarrhea, Nausea, Poor Appetite, Poor Fluid Intake, Vomiting : Yes: See HPI, Incontinence. No: Burning, Dysuria, Frequency, Flank Pain, Urgency Musculoskeletal: No: Back Pain, Joint Pain, Muscle Pain, Muscle Weakness Integumentary: No: Rash Neurological: No: Headache, Numbness, Weakness, Unsteady Gait (pt ambulatory with walker at baseline), Dizziness Psychiatric: No: Sleep Pattern Change, Change in Appetite Endocrine: No: Increased Urine, Change in Weight Hematologic/Lymphatic: No: Anemia, Blood Clots, Easy Bleeding, Easy Bruising All Other Systems: Reviewed and Negative *Physical Exam - Vital Signs Last Vital Signs Temp Pulse Resp BP Pulse Ox 97.6 F 82 18 138/63 97 04/21/19 14:45 04/21/19 14:45 04/21/19 14:45 04/21/19 14:45 04/21/19 14:45 - Physical Exam Comments: Vitals stable, pt afebrile. Pt in NAD, sitting comfortably and has been ambulatory in ED with walker. Obese body habitus. Pt alert and oriented x3. 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 No midline spinal tenderness, step-offs, or crepitus. Head normocephalic, atraumatic. Eyes PERRLA, EOMI. Oropharynx without erythema or exudates, no LAD b/l. No nasal congestion, hearing intact. +b/l pedal edema to mid shins (pt states baseline). Clear heart sounds, S1/S2, no JVD, or heart murmur. Coarse breath sounds at the bases, with no wheezes or accessory muscle use. No abdominal or CVA tenderness to palpation, no rebound, no guarding. Abdomen soft, protuberant, and with normoactive bowel sounds. Skin without jaundice or rash. 04/21/19 17:36 04/21/19 17:44 ED Treatment Course - LABORATORY CBC & Chemistry Diagram: 04/21/19 18:10 04/21/19 18:10 - ADDITIONAL ORDERS Additional order review: Laboratory Results 04/21/19 14:19 Urine Color Yellow Urine Appearance Clear Urine pH 5.0 Ur Specific [place] 1.010 Urine Protein Negative Urine Glucose (UA) Trace Urine Ketones Negative Urine Blood Negative Urine Nitrite Negative Urine Bilirubin Negative Urine Urobilinogen 0.2 Ur Leukocyte Esterase Negative Medical Decision Making - Medical Decision Making Pt was seen at bedside, also will be seen by attending Dr. Cedillo. Pt presenting with complaints of incontinence while coughing x1 week. Chest x-ray and UA were done in [facility]. Sent rapid stress test for pts concern over "throat infection". Will evaluate for cough (troponin, BNP, elecrolytes). Unclear etiology of cough, but chest x-ray showed no new congestion or changes from prior. UA negative for infection. Pending rapid strep test. 04/21/19 17:47 Rapid strep test negative. 04/21/19 17:48 04/21/19 18:25 EKG: Ventricular paced rhythm with PVCs CBC and CMP within pt baseline Trop <.03 Bedside US showed residual bladder volume of 100, no need for straight cath at this point. Attempted to call Dr. Gutierrez's office with no answering service. Pt has a f/u appointment with Dr. Gutierrez tomorrow morning. Pt can be discharged to home with PCP f/u. Strict return precautions provided with pt understanding. 04/21/19 19:28 *DC/Admit/Observation/Transfer Diagnosis at time of Disposition: Cough - Discharge Dispostion Disposition: HOME Condition at time of disposition: Good Decision to Admit order: No - Referrals Referrals: Nikolai Gutierrez MD [Primary Care Provider] - - Patient Instructions Printed Discharge Instructions: DI for Cough -- Adult Additional Instructions: You were seen in the ER today for cough. The results of your labs and imaging today were normal. Please follow-up with your primary care doctor within 1-2 days to discuss your visit and make sure your symptoms have improved. Please return to the ER if you have any worsening pain, development of fevers or chills , loss of consciousness, inability to tolerate food or fluids, or any other concerns. - Post Discharge Activity
[2019-04-21 18:22] LABS: BASO % 0.9 % (0-2.0); EOS % 3.1 % (0-4.5); HEMATOCRIT 43.5 % (35.4-49); HEMOGLOBIN 13.9 GM/dL (11.7-16.9); LYMPH % 18.8 % (8-40); MCH 25.2 pg (25.7-33.7); MCHC 31.9 g/dl (32.0-35.9); MEAN CELL VOLUME 79.1 fl (80-96); MEAN PLT VOLUME 11.1 fl (7.5-11.1); MONO % 8.6 % (3.8-10.2); NEUT % 68.6 % (42.8-82.8); PLATELET COUNT 170 K/MM3 (134-434); RDW 15.8 % (11.9-15.9); WHITE BLOOD COUNT 10.1 K/mm3 (4.0-10.0)
--- NOTE | 2019-04-21 18:45 | PDOC ---
Attending Attestation - Resident Resident Name: Meme Lerma - ED Attending Attestation I have performed the following: I have examined & evaluated the patient, The case was reviewed & discussed with the resident, I agree w/resident's findings & plan - HPI HPI: 04/21/19 18:39 73y/o M h/o parkinson's, BPH, CHF presents for urinary incontinence with cough for 2 days. Pt recently seen by Dr. Sanjiv Gutierrez, reportedly diagnosed with pharyngitis and treated with abx (? cipro), now with cough for a few days without cp/valenzuela, but reporting urinary spilling with cough today. no abd fullness /pain, but reports decreased UOP over the last 24h (usually urinates 4-6x/day on lasix, but only once today). - Physicial Exam PE: 04/21/19 18:42 vss well appearing, parkinson's, ambulating independently with walker no jaundice/pallor s1s2 rrr bibasilar crackles with exp wheeze but no focally decreased breath sounds to prolonged expiration abd benign, no palpable bladder distension, no cvat 3+ pitting edema b/l - Medical Decision Making 04/21/19 18:43 73y/o M with presents with volume overload with pulmonary congestion (? baseline ) with decreased uop today, ? urinary retention leading to overflow incontinence with valsalva/cough. labs, ua post-void residual by u/s or straight cath cxr, ekg reassess, dispo after discussion with Dr. Sanjiv Gutierrez - pt has appt with his PCP tomorrow Heart Score/ECG Review #1 ECG reviewed & interpreted by me at: 15:09 04/21/19 18:45 v-paced at 73. no secondary sign of acute ischemic change
[2019-04-21 18:59] LABS: ALBUMIN 3.9 g/dl (3.4-5.0); ALK PHOS 106 U/L (45-117); ANION GAP 6 MMOL/L (8-16); BILIRUBIN,TOTAL 0.7 mg/dL (0.2-1); BLOOD UREA NITROGEN 33.3 mg/dL (7-18); CALCIUM 9.4 mg/dL (8.5-10.1); CHLORIDE 103 mmol/L (98-107); CO2 31 mmol/L (21-32); CREATININE 1.4 mg/dL (0.55-1.3); GLUCOSE,RANDOM 201 mg/dL (74-106); N-TERMINAL BNP 554.4 pg/ml (5-125); POTASSIUM 4.1 mmol/L (3.5-5.1); SGOT/AST 24 U/L (15-37); SGPT/ALT 34 U/L (13-61); SODIUM 140 mmol/L (136-145); TOT PROT 7.2 g/dl (6.4-8.2)
--- NOTE | 2019-04-22 14:07 | EKG ---
Test Reason : Blood Pressure : / mmHG Vent. Rate : 072 BPM Atrial Rate : 071 BPM P-R Int : 000 ms QRS Dur : 116 ms QT Int : 422 ms P-R-T Axes : 000 -28 209 degrees QTc Int : 462 ms Ventricular-paced rhythm WITH PREMATURE VENTRICULAR OR ABERRANTLY CONDUCTED COMPLEXES ABNORMAL ECG WHEN COMPARED WITH ECG OF 12-DEC-2016 08:56, VENT. RATE HAS INCREASED BY 4 BPM POOR DATA QUALITY, INTERPRETATION MAY BE ADVERSELY AFFECTED Confirmed by CLAIRE BENITES MD ([id number]) on 04/22/2019 2:07:23 PM Referred By: Confirmed By:CLAIRE BENITES MD
== END 2019-04-21 20:06 | disposition home or self-care (01) ==
LOC: JER 14:35
DX: R05 Cough (principal); Z95.0 Presence of cardiac pacemaker; Z95.5 Presence of coronary angioplasty implant and graft; I10 Essential (primary) hypertension; E78.00 Pure hypercholesterolemia, unspecified; E11.9 Type 2 diabetes mellitus without complications
CPT/HCPCS: 36415; 71046-TC-FY; 80053; 81003; 82550; 82553; 83880; 84484; 85025; 87070; 87086; 87880; 93005; 93010; 99282-25

== ENCOUNTER 2019-09-07 12:50 | Emergency (ER) | payer OTHER, MEDICARE ==
--- NOTE | 2019-09-07 13:18 | PDOC ---
Rapid Medical Evaluation Time Seen by Provider: 09/07/19 12:59 Medical Evaluation: Allergies Allergy/AdvReac Type Severity Reaction Status Date / Time No Known Drug Allergies Allergy Verified 04/21/19 14:44 09/07/19 13:09 CC: Headache, ble weakness PE: bibasilar fine crackles. Pitting edema ble. [place] negative. Orders: cardiac w/u with [facility] Patient will proceed to the ED for further evaluation. Discharge Disposition - Diagnosis CHF (congestive heart failure) - Referrals - Patient Instructions - Post Discharge Activity
[2019-09-07 13:19] VITALS: BMI 39.9
[2019-09-07 14:19] LABS: BASO % 0.8 % (0-2.0); HEMATOCRIT 38.4 % (35.4-49); HEMOGLOBIN 12.4 GM/dL (11.7-16.9); LYMPH % 15.4 % (8-40); MCH 25.5 pg (25.7-33.7); MCHC 32.2 g/dl (32.0-35.9); MEAN CELL VOLUME 79.2 fl (80-96); MEAN PLT VOLUME 11.1 fl (7.5-11.1); MONO % 8.3 % (3.8-10.2); NEUT % 73.5 % (42.8-82.8); PLATELET COUNT 172 K/MM3 (134-434); RBC 4.84 M/mm3 (4.00-5.60); RDW 16.5 % (11.9-15.9)
[2019-09-07 14:52] LABS: ALBUMIN 3.6 g/dl (3.4-5.0); ALK PHOS 114 U/L (45-117); ANION GAP 6 MMOL/L (8-16); BILIRUBIN,TOTAL 0.8 mg/dL (0.2-1); BLOOD UREA NITROGEN 29.4 mg/dL (7-18); CALCIUM 9.2 mg/dL (8.5-10.1); CHLORIDE 105 mmol/L (98-107); CO2 28 mmol/L (21-32); CREATININE 1.2 mg/dL (0.55-1.3); GLUCOSE,RANDOM 309 mg/dL (74-106); MAGNESIUM 2.5 mg/dL (1.8-2.4); POTASSIUM 5.5 mmol/L (3.5-5.1); SGOT/AST 41 U/L (15-37); SGPT/ALT 17 U/L (13-61); SODIUM 138 mmol/L (136-145); TOT PROT 6.9 g/dl (6.4-8.2)
--- NOTE | 2019-09-07 15:32 | PDOC ---
Attending Attestation - Resident Resident Name: Papo Flowers - ED Attending Attestation I have performed the following: I have examined & evaluated the patient, The case was reviewed & discussed with the resident, I agree w/resident's findings & plan, Exceptions are as noted - HPI HPI: 09/07/19 16:41 74-year-old male with multiple comorbidities, history of advanced Parkinson's presents with chief complaint of mild headache relieved by [id number] Tylenol as well as bilateral foot and leg paresthesias for the past 2 months. - Physicial Exam PE: 09/07/19 16:43 Patient is awake and alert, obese, in no significant distress Normocephalic and atraumatic CTA RRR Bilateral upper extremity tremor and leadpipe rigidity noted - Medical Decision Making 09/07/19 16:42 Patient reports that he has difficulty walking. As per the worker accompanying the patient, patient's symptoms are baseline. Exam reveals no acute focal deficits, bilateral upper leadpipe rigidity and tremor noted. CT of head shows no evidence of acute intracranial pathology. Patient symptoms appear at baseline. Case discussed with Dr. Nikolai Gutierrez and he agrees with outpatient follow-up.
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
[2019-09-07 16:31] VITALS: BP 110/60; PULSE 64; TEMP 98
[2019-09-08 00:13] LABS: N-TERMINAL BNP 865.8 pg/ml (5-125)
--- NOTE | 2019-09-08 12:42 | EKG ---
Test Reason : Blood Pressure : / mmHG Vent. Rate : 065 BPM Atrial Rate : 065 BPM P-R Int : 000 ms QRS Dur : 120 ms QT Int : 432 ms P-R-T Axes : 024 -62 101 degrees QTc Int : 449 ms POOR DATA QUALITY, INTERPRETATION MAY BE ADVERSELY AFFECTED Ventricular-paced rhythm ABNORMAL ECG WHEN COMPARED WITH ECG OF 21-APR-2019 15:09, VENT. RATE HAS DECREASED BY 7 BPM Confirmed by CELSO GARCIA, NATALIE ([id number]) on 09/08/2019 12:42:20 PM Referred By: Confirmed By:NATALIE HOUSTON MD
== END 2019-09-07 16:40 | disposition home or self-care (01) ==
LOC: JER 12:50
DX: N40.0 Benign prostatic hyperplasia without lower urinary tract symptoms (principal); I10 Essential (primary) hypertension; E78.5 Hyperlipidemia, unspecified; Z95.0 Presence of cardiac pacemaker; I25.10 Atherosclerotic heart disease of native coronary artery without angina pectoris
CPT/HCPCS: 36415; 70450-TC; 71046-TC-FY; 80053; 82550; 82553; 83735; 83880; 84484; 85025; 93005; 93010; 99283-25

== ENCOUNTER 2020-03-13 10:00 | Inpatient (IN) | payer OTHER, MEDICARE ==
--- NOTE | 2020-03-13 10:13 | PDOC ---
Rapid Medical Evaluation Time Seen by Provider: 03/13/20 10:10 Medical Evaluation: Allergies Allergy/AdvReac Type Severity Reaction Status Date / Time No Known Drug Allergies Allergy Verified 09/07/19 13:15 03/13/20 10:10 I have performed a brief in-person evaluation of this patient. The patient presents with a chief complaint of:h/o BPH, HTN, HLD, CHF, CAD, PPM, DM, lumbosacral spine stenosis, Parkinson's Disease, ambulates w/ walker at baseline and BIB family member with complaint that pt is ambulating more slowly than baseline due to legs feeling weak x few days per pt. No acute back pain, saddle anesthesia or B/B incontinence. No acute sxs otherwise. Pt was seen for similar sxs 08/29 and discharged from ED after neg w/u PMD: Dr Gutierrez Neuro: Ramesh Pertinent physical exam findings:well pam and stable I have ordered the following:labs The patient will proceed to the ED for further evaluation. Discharge Disposition - Diagnosis Leg weakness, bilateral - Referrals - Patient Instructions - Post Discharge Activity
[2020-03-13 10:20] VITALS: BMI 29.1
--- NOTE | 2020-03-13 11:00 | PDOC ---
History of Present Illness - General Chief Complaint: Weakness Stated Complaint: WEAKNESS Time Seen by Provider: 03/13/20 10:10 - History of Present Illness Initial Comments: 03/13/20 11:18 74Y/O M HX of parkinson's dementia. BPH, CHF, CAD, DM, HTN, HLD, CAD, pacemaker, lumbosacral spinal stenosis, presents to the ER with progressive legs weakness. Started out 3 months, but the past 2 months, he is been getting weaker and wea ker. The past few days, he is getting super weak, called PCP: Brenda daily and they told him to come to the ED. He admitted to have visual hallucination which didn't disturb him, he also admitted to hearing noises that that is not that there. No suicidal though. He admitted to have urinary retention; last void was this morning. He denies fever, chills, N/V/D, chest pain, abdominal pain, but endorse back pain. He admitted to have falling at night when no one can help him move around. He denies head hitting, LOC Neurologist:Ramesh Vela PCP: Dr Dillon. PMHX: as in HPI PSHX: Meds: home meds: Furosemide, statin, linzess, citalopram, quatiapine, pramxipexole + carbidopa , carvedilol, dexilant. novolog Allergies: none Tob: denies Etoh: denies Rec drugs: denies ROS GENERAL/CONSTITUTIONAL: No fever or chills. No weakness. HEAD, EYES, EARS, NOSE AND THROAT: No change in vision. No ear pain or discharge. No sore throat. CARDIOVASCULAR: No chest pain or shortness of breath RESPIRATORY: No cough, wheezing, or hemoptysis. GASTROINTESTINAL: No nausea, vomiting, diarrhea or constipation. GENITOURINARY: No dysuria, frequency, or change in urination. MUSCULOSKELETAL: +legs swelling. No neck pain,+ back pain. SKIN: No rash NEUROLOGIC: No headache, vertigo, loss of consciousness, + change in strength/sensation. ENDOCRINE: No increased thirst. No abnormal weight change HEMATOLOGIC/LYMPHATIC: No anemia, easy bleeding, or history of blood clots. ALLERGIC/IMMUNOLOGIC: No hives or skin allergy. PE GENERAL: Awake, alert, and fully oriented, in no acute distress HEAD: No signs of trauma, normocephalic, atraumatic EYES: PERRLA, EOMI, sclera anicteric, conjunctiva clear ENT: Auricles normal inspection, hearing grossly normal, nares patent, oropharynx clear without exudates. Moist mucosa NECK: no lymphadenopathy, JVD, or masses LUNGS: No distress, speaks full sentences, clear to auscultation bilaterally HEART: Regular rate and rhythm, normal S1 and S2, no murmurs, rubs or gallops, peripheral pulses normal and equal bilaterally. ABDOMEN: Soft, nontender, normoactive bowel sounds. No guarding, no rebound. No masses, burn scars EXTREMITIES : Normal inspection, limited range of motion, no pitting edema. No clubbing or cyanosis. normal strength. rigid shuffling walk. Resting tremor NEUROLOGICAL: Cranial nerves II through XII grossly intact. Normal speech, limited gait with credit control assistant, no focal sensorimotor deficits , AOx3 SKIN: Warm, Dry, normal turgor, no rashes or lesions noted BS 215 03/13/20 14:55 Past History - Medical History Allergies/Adverse Reactions: Allergies Allergy/AdvReac Type Severity Reaction Status Date / Time No Known Drug Allergies Allergy Verified 03/13/20 10:16 Home Medications: Ambulatory Orders Mirabegron [Myrbetriq] 50 mg PO DAILY 08/08/16 Atorvastatin Ca [Lipitor] 20 mg PO DAILY 12/11/16 Pramipexole Di-HCl [Pramipexole Dihydrochloride] 0.5 mg PO HS 12/11/16 Acetaminophen [Tylenol .Regular Strength -] 650 mg PO Q4H PRN #0 tablet 12/16/16 Carvedilol [Coreg -] 3.125 mg PO HS 03/13/20 Citalopram Hydrobromide [Citalopram HBr] 20 mg PO DAILY 03/13/20 Furosemide [Lasix -] 40 mg PO DAILY 03/13/20 Pimavanserin Tartrate [Nuplazid] 34 mg PO DAILY 03/13/20 Carbidopa/Levodopa 25/250 [Sinemet 25/250 -] 1 each PO 0600,1000,1400,1800 tablet 03/15/20 Cefuroxime Axetil [Ceftin -] 500 mg PO BID #14 tablet 03/15/20 Enoxaparin [Lovenox -] 40 mg SQ DAILY disp.syrin 03/15/20 Insulin Sliding Scale [Novolog Vial Sliding Scale -] 1 vial SQ TIDAC units 03/15/20 Lidocaine Patch Removal [Lidoderm Patch Removal] 1 each MC DAILY@2200 each 03/15/20 Pantoprazole Sodium [Protonix -] 40 mg PO DAILY tablet.ec 03/15/20 Polyethylene Glycol 3350 [Miralax 119 gm Btl -] 17 gm PO DAILY bottle 03/15/20 Pramipexole Dihydrochloride [Mirapex -] 0.25 mg PO BID@0600,1400 tablet 03/15/20 Quetiapine Fumarate [Seroquel -] 50 mg PO HS tablet 03/15/20 Sennosides [Senna -] 2 tab PO HS PRN tablet 03/15/20 Sitagliptin Phosphate [Januvia -] 50 mg PO DAILY@0700 #30 tablet 03/15/20 metFORMIN HCL [Glucophage -] 850 mg PO BID@0700,1630 tablet 03/15/20 Anemia: No Asthma: No Cancer: No Cardiac Disorders: Yes (PACEMAKER) CVA: No COPD: No CHF: Yes Dementia: No Diabetes: Yes GI Disorders: Yes (GALLBLADDER) Disorders: Yes (ENLARGED PROSTATE) HTN: Yes Hypercholesterolemia: Yes Liver Disease: No Seizures: No Thyroid Disease: No - Surgical History Abdominal Surgery: No Appendectomy: No Cardiac Surgery: Yes (STENTS X2,PACEMAKER) Cholecystectomy: No Lung Surgery: No Neurologic Surgery: No Orthopedic Surgery: No - Immunization History Immunization Up to Date: Yes - Psycho-Social/Smoking History Smoking History: Never smoked Have you smoked in the past 12 months: No - Substance Abuse Hx (Audit-C & DAST Scrn) How often the patient has a drink containing alcohol: Never Score: In Men: 4 or > Positive; In Women: 3 or > Positive: 0 Screen Result (Pos requires Nsg. Audit-10AR): Negative In the last yr the pt used illegal drug/Rx for NonMed reason: No Score: Yes response is considered Positive: 0 Screen Result (Positive result requires Nsg. DAST-10): Negative *Physical Exam - Vital Signs Last Vital Signs Temp Pulse Resp BP Pulse Ox 98.3 F 64 20 112/67 98 03/13/20 10:16 03/13/20 10:16 03/13/20 10:16 03/13/20 10:16 03/13/20 10:16 ED Treatment Course - LABORATORY CBC & Chemistry Diagram: 03/13/20 11:10 03/14/20 06:30 Medical Decision Making - Medical Decision Making 74 M with Parkinson Tremor (resting), Rigidity (cogwheel),Akinesia, Posture/equilibrium impairment presented with progressive leg weakness. EKG showed no concerning ST elevation, paced rhtym, vent rate 61 . 03/13/20 14:57 Lab showed no concerning problem.Normal WBC, BUN is high at 23, but on the baseline. BNP is also high at 640, but not the highest. CTscan of the head and necks show no fx, bleeding. Called Dr. Gutierrez but He is not in the office. Called Dr. Rodriguez twice, but unsuc cessful 03/13/20 15:00 03/13/20 15:01 Plan is to admit for inpatient to [facility] up [facility]hab [facility]. 03/13/20 15:36 Has been calling [facility] office twice, called Dr. Gutierrez once. Lowell from two office has noticed the call and request. Awaiting phone call. 03/13/20 15:59 Dr. Rodriguez called back , admitted for AMS with unsteady gait. 03/13/20 16:00 Discharge - Discharge Information Problems reviewed: Yes Clinical Impression/Diagnosis: Leg weakness, bilateral, Parkinson disease Fall Qualifiers: Encounter type: initial encounter Qualified Code(s): W19.XXXA - Unspecified fall, initial encounter Condition: Stable Disposition: [facility] F[facility] - Follow up/Referral - Patient Discharge Instructions - Post Discharge Activity
[2020-03-13 11:50] LABS: BASO % 0.7 % (0-2.0); EOS % 2.2 % (0-4.5); HEMATOCRIT 41.6 % (35.4-49); HEMOGLOBIN 13.1 GM/dL (11.7-16.9); MCH 25.7 pg (25.7-33.7); MCHC 31.5 g/dl (32.0-35.9); MEAN CELL VOLUME 81.6 fl (80-96); MEAN PLT VOLUME 11.7 fl (7.5-11.1); MONO % 8.5 % (3.8-10.2); NEUT % 74.6 % (42.8-82.8); PLATELET COUNT 162 K/MM3 (134-434); RDW 16.9 % (11.9-15.9); WHITE BLOOD COUNT 9.1 K/mm3 (4.0-10.0)
[2020-03-13] MEDS ORDERED: LIDOCAINE 5% TOPICAL PATCH TP ONE (12:00)
[2020-03-13 12:06] LABS: INR 1.39 (0.83-1.09); PROTHROMBIN TIME (PATIENT) 16.4 SEC (9.7-13.0)
[2020-03-13] MEDS ORDERED: LIDOCAINE 5% TOPICAL PATCH ONE (12:29)
[2020-03-13 12:41] LABS: ALBUMIN 3.6 g/dl (3.4-5.0); BILIRUBIN,TOTAL 0.8 mg/dL (0.2-1); CALCIUM 9.1 mg/dL (8.5-10.1); CREATININE 1.1 mg/dL (0.55-1.3); POTASSIUM 5.2 mmol/L (3.5-5.1); TOT PROT 6.8 g/dl (6.4-8.2)
[2020-03-13 12:43] LABS: MAGNESIUM 2.2 mg/dL (1.8-2.4); N-TERMINAL BNP 648.5 pg/ml (5-125)
--- NOTE | 2020-03-13 12:43 | PDOC ---
Attending Attestation - Resident Resident Name: Elías Santos - ED Attending Attestation I have performed the following: I have examined & evaluated the patient, The case was reviewed & discussed with the resident, I agree w/resident's findings & plan - HPI HPI: 03/13/20 12:39 74-year-old male with history of advanced Parkinson's who ambulates with assistance and with walker at baseline presents for evaluation for progression of disease with increasing difficulty transferring and ambulating resulting in falls. No recent infectious or dehydration complaints, denies any direct head injury, no recent fevers or chills. - Physicial Exam PE: 03/13/20 12:40 Vital signs are within normal limits, afebrile Alert, pleasant, elderly gentleman seated in stretcher, conversant Head is atraumatic, C-spine with normal range of motion Heart is regular, lungs are clear, abdomen benign Trace pretibial edema, no calf tenderness Neurological exam with resting tremor in the hands, subjectively decreased sensation in both hands, otherwise full range of motion - Medical Decision Making 03/13/20 12:41 74-year-old male with advanced Parkinson's presents with progression of disease resulting in falls and inability to care for self at home even with assistance. Question progression of disease versus medication side effect, rule out acute infectious or metabolic process, rule out traumatic injury from fall. Labs, urinalysis EKG, chest x-ray CT head, CT C-spine Discussed with PCP, will likely need admission for PT/rehab placement Heart Score/ECG Review #1 ECG reviewed & interpreted by me at: 11:22 General ECG Interpretation: Normal Rate (av paced at 61), Normal Intervals (qtc 450), No acute ischemic changes Discharge - Discharge Information Problems reviewed: Yes Clinical Impression/Diagnosis: Leg weakness, bilateral, Parkinson disease Fall Qualifiers: Encounter type: initial encounter Qualified Code(s): W19.XXXA - Unspecified fall, initial encounter - Follow up/Referral Referrals: Nikolai Gutierrez MD [Primary Care Provider] - - Patient Discharge Instructions - Post Discharge Activity
[2020-03-13] MEDS ORDERED: ACETAMINOPHEN 325 MG TABLET (FP) PO ONE (12:54)
[2020-03-13] MEDS ORDERED: ACETAMINOPHEN 325 MG TABLET (FP) ONE ×2 (14:22→14:26)
[2020-03-13] MEDS ORDERED: ACETAMINOPHEN 325 MG TABLET (FP) PO PRN (16:41)
[2020-03-13] MEDS ORDERED: SENNOSIDES 8.6MG TABLET (FP) PO PRN (16:44)
[2020-03-13] MEDS ORDERED: CARBIDOPA/LEVODOPA 25/100 TABLET (FP) PO SCH ×3 (16:45→17:11)
--- NOTE | 2020-03-13 16:55 | HP ---
Admitting History and Physical - Primary Care Physician PCP: Katharine Rodriguez - Admission Chief Complaint: Weakness History of Present Illness: 74Y/O M HX of parkinson's dementia. BPH, CHF, CAD, DM, HTN, HLD, CAD, pacemaker, lumbosacral spinal stenosis, presents to the ER with progressive legs weakness. Started out 3 months, but the past 2 months, he is been getting weaker and weaker. The past few days, he is getting super weak, called PCP: Brenda quijano and they told him to come to the ED. He admitted to have visual hallucination which didn't disturb him, he also admitted to hearing noises that that is not that there. No suicidal though. He admitted to have urinary retention; last void was this morning. He denies fever, chills, N/V/D, chest pain, abdominal pain, but endorse back pain. He admitted to have falling at night when no one can help him move around. He denies head hitting, LOC History Source: Patient, Medical Record Limitations to Obtaining History: No Limitations, Clinical Condition - Past Medical History Cardiovascular: Yes: AFIB, CAD, CHF, HTN, Hyperlipdemia, Other (ppm) - Past Surgical History Past Surgical History: Yes: Permanent Pacemaker - Smoking History Smoking history: Never smoked Have you smoked in the past 12 months: No - Alcohol/Substance Use Hx Alcohol Use: Yes - Social History ADL: Independent History of Recent Travel: No Home Medications - Allergies Allergies/Adverse Reactions: Allergies Allergy/AdvReac Type Severity Reaction Status Date / Time No Known Drug Allergies Allergy Verified 03/13/20 10:16 - Home Medications Home Medications: Ambulatory Orders Mirabegron [Myrbetriq] 50 mg PO DAILY 08/08/16 Atorvastatin Ca [Lipitor] 20 mg PO DAILY 12/11/16 Carbidopa/Levodopa [Carbidopa-Levodopa 25-100 Tab] 1 each PO Q6H 12/11/16 Potassium Chloride [Klor-Con 10] 10 meq PO DAILY 12/11/16 Pramipexole Di-HCl [Pramipexole Dihydrochloride] 0.5 mg PO HS 12/11/16 Acetaminophen [Tylenol .Regular Strength -] 650 mg PO Q4H PRN #0 tablet 12/16/16 Dexlansoprazole [Dexilant] 60 mg PO DAILY 04/21/19 Carvedilol [Coreg -] 3.125 mg PO HS 03/13/20 Citalopram Hydrobromide [Citalopram HBr] 20 mg PO DAILY 03/13/20 Furosemide [Lasix -] 40 mg PO DAILY 03/13/20 Insulin (Novolog) [Novolog] 0 units SQ ASDIR 03/13/20 Insulin Glargine,Hum.rec.anlog [Basaglar Kwikpen U-100] 0 unit SQ DAILY 03/13/20 Linaclotide [Linzess] 290 mcg PO DAILY 03/13/20 Mirabegron [Myrbetriq] 0 mg PO DAILY 03/13/20 Pimavanserin Tartrate [Nuplazid] 34 mg PO DAILY 03/13/20 Quetiapine Fumarate [Seroquel -] 25 mg PO HS 03/13/20 Review of Systems - Review of Systems Constitutional: reports: Weakness Eyes: reports: No Symptoms HENT: reports: No Symptoms Neck: reports: No Symptoms Cardiovascular: reports: No Symptoms Respiratory: reports: No Symptoms Gastrointestinal: reports: No Symptoms Genitourinary: reports: No Symptoms Breasts: reports: No Symptoms Reported Musculoskeletal: reports: Muscle Weakness Integumentary: reports: No Symptoms Neurological: reports: Parasthesia (BLLE) Endocrine: reports: No Symptoms Hematology/Lymphatic: reports: No Symptoms Psychiatric: reports: No Symptoms Physical Examination Vital Signs: Vital Signs Temperature 98.3 F 03/13/20 10:16 Pulse Rate 62 03/13/20 15:18 Respiratory Rate 18 03/13/20 15:18 Blood Pressure 104/57 L 03/13/20 15:18 O2 Sat by Pulse Oximetry (%) 97 03/13/20 15:18 Constitutional: Yes: Well Nourished, No Distress, Calm Cardiovascular: Yes: Regular Rate and Rhythm Respiratory: Yes: Regular, CTA Bilaterally Gastrointestinal: Yes: Normal Bowel Sounds, Soft, Abdomen, Obese Labs: CBC, BMP 03/13/20 11:10 03/13/20 11:10 Problem List - Problems (1) Spinal stenosis Assessment/Plan: -Neurology consult -Continue home meds Problems reviewed: Yes Code(s): M48.00 - SPINAL STENOSIS, SITE UNSPECIFIED (2) Paresthesia Assessment/Plan: -Continue home dose pramipexole- was hallucinating on higher dosages -Trial of gabapentin if neurology agrees Problems reviewed: Yes Code(s): R20.2 - PARESTHESIA OF SKIN (3) Leg weakness, bilateral Assessment/Plan: -PT -Physiatry consult -SNF placement Problems reviewed: Yes Code(s): R29.898 - OTH SYMPTOMS AND SIGNS INVOLVING THE MUSCULOSKELETAL SYSTEM (4) Parkinson disease Assessment/Plan: -Continue Sinemet -May continue home med Nuplazid Problems reviewed: Yes Code(s): G20 - PARKINSON'S DISEASE (5) Diabetes Assessment/Plan: -Recheck A1c -BGM AC HS -ISS -Diabetic low sodium diet Problems reviewed: Yes Code(s): E11.9 - TYPE 2 DIABETES MELLITUS WITHOUT COMPLICATIONS Qualifiers: Diabetes mellitus type: type 2 Assessment/Plan See problem list
[2020-03-13] MEDS: ENOXAPARIN NA (PORCINE) 40 MG/0.4 ML DISP.SYRIN SQ SCH (17:13)
[2020-03-13] MEDS: CARBIDOPA/LEVODOPA 25/100 TABLET (FP) PO SCH (21:42)
[2020-03-13] MEDS: CARVEDILOL 3.125 MG TABLET (FP) PO SCH (21:42)
[2020-03-13] MEDS: LIDOCAINE PATCH REMOVAL MC SCH (21:42)
[2020-03-13] MEDS: ATORVASTATIN CA 20 MG TABLET (FP) PO SCH (21:42)
[2020-03-13] MEDS ORDERED: QUEtiapine FUMARATE 25 MG TABLET PO SCH (22:00)
[2020-03-13] MEDS ORDERED: PRAMIPEXOLE DIHYDROCHLORIDE 0.5 MG TABLET PO SCH (22:00)
[2020-03-13] MEDS: PRAMIPEXOLE DIHYDROCHLORIDE 0.25 MG TABLET PO SCH (22:31)
[2020-03-13] MEDS ORDERED: PT OWN MED DRAWER 7, Y5N ONE (22:34)
[2020-03-14] MEDS: INSULIN SLIDING SCALE (NOVOLOG) 1 VIAL SQ SCH ×3 (06:09→17:19)
[2020-03-14] MEDS ORDERED: INSULIN (NOVOLOG) ASPART 100 UNITS/ML 10ML VIAL ONE ×2 (06:51→11:29)
[2020-03-14 08:34] LABS: BLOOD UREA NITROGEN 22.5 mg/dL (7-18); CALCIUM 9.2 mg/dL (8.5-10.1); POTASSIUM 4.3 mmol/L (3.5-5.1)
[2020-03-14] MEDS: PATIENT'S OWN MEDICATION (NON-FORMULARY) (Pimavanserin Tartrate [Nuplazid] 34 MG) PO SCH (09:04)
[2020-03-14] MEDS: CITALOPRAM HYDROBROMIDE 20 MG TABLET PO SCH (09:06)
[2020-03-14] MEDS: ENOXAPARIN NA (PORCINE) 40 MG/0.4 ML DISP.SYRIN SQ SCH (09:06)
[2020-03-14] MEDS: CARBIDOPA/LEVODOPA 25/100 TABLET (FP) PO SCH ×3 (09:06→18:19)
[2020-03-14] MEDS: FUROSEMIDE 40 MG TABLET (FP) PO SCH (09:06)
[2020-03-14] MEDS: PANTOPRAZOLE 40 MG TABLET PO SCH (09:06)
[2020-03-14] MEDS: POLYETHYLENE GLYCOL 3350 119 GM BTL PO SCH (09:08)
--- NOTE | 2020-03-14 09:10 | EKG ---
Test Reason : Blood Pressure : / mmHG Vent. Rate : 061 BPM Atrial Rate : 061 BPM P-R Int : 200 ms QRS Dur : 120 ms QT Int : 448 ms P-R-T Axes : 024 -66 023 degrees QTc Int : 450 ms Atrial-sensed ventricular-paced rhythm ABNORMAL ECG WHEN COMPARED WITH ECG OF 07-SEP-2019 13:55, VENT. RATE HAS DECREASED BY 4 BPM Confirmed by Albert Garza ([id number]) on 03/14/2020 9:09:39 AM Referred By: Confirmed By:Albert Garza
--- NOTE | 2020-03-14 10:24 | PN ---
Progress Note, Physician Chief Complaint: Generalized weakness History of Present Illness: Came in with generalized weakness NAD OOB with PT - Current Medication List Current Medications: Active Medications Acetaminophen (Tylenol -) 650 mg PO Q4H PRN PRN Reason: FEVER Atorvastatin Calcium (Lipitor -) 20 mg PO [facility] Last Admin: 03/13/20 21:42 Dose: 20 mg Documented by: Carbidopa/Levodopa (Sinemet 25/100 -) 1 each PO 0800,1200,1600,2000 [facility] Last Admin: 03/14/20 09:06 Dose: 1 each Documented by: Carvedilol (Coreg -) 3.125 mg PO [facility] Last Admin: 03/13/20 21:42 Dose: 3.125 mg Documented by: Citalopram Hydrobromide (Celexa -) 20 mg PO DAILY [facility] Last Admin: 03/14/20 09:06 Dose: 20 mg Documented by: Enoxaparin Sodium (Lovenox -) 40 mg SQ DAILY [facility] Last Admin: 03/14/20 09:06 Dose: 40 mg Documented by: Furosemide (Lasix -) 40 mg PO DAILY [facility] Last Admin: 03/14/20 09:06 Dose: 40 mg Documented by: Insulin Aspart (Novolog Vial Sliding Scale -) 1 vial SQ TIDAC [facility]; Protocol Last Admin: 03/14/20 06:09 Dose: Not Given Documented by: Miscellaneous (Lidoderm Patch Removal) 1 each MC DAILY@2200 [facility] Last Admin: 03/13/20 21:42 Dose: 1 each Documented by: Non-Formulary Medication (Pimavanserin Tartrate [Nuplazid]) 34 mg PO DAILY [facility] Last Admin: 03/14/20 09:04 Dose: 34 mg Documented by: Pantoprazole Sodium (Protonix -) 40 mg PO DAILY [facility] Last Admin: 03/14/20 09:06 Dose: 40 mg Documented by: Pneumococcal 13-Valent Conj Vacc (Prevnar 13 Syringe -) 0.5 ml IM .ONCE ONE Stop: 03/13/20 19:15 Polyethylene Glycol (Miralax (For Daily Use) -) 17 gm PO DAILY [facility] Last Admin: 03/14/20 09:08 Dose: 17 grams Documented by: Pramipexole Dihydrochloride (Mirapex -) 0.75 mg PO [facility] Last Admin: 03/13/20 22:31 Dose: 0.75 mg Documented by: Quetiapine Fumarate (Seroquel -) 25 mg PO HS [facility] Last Admin: 03/13/20 21:42 Dose: 25 mg Documented by: Senna (Senna -) 2 tab PO HS PRN PRN Reason: CONSTIPATION - Objective Vital Signs: Vital Signs Temperature 98.6 F 03/14/20 09:11 Pulse Rate 67 03/14/20 09:11 Respiratory Rate 18 03/14/20 09:11 Blood Pressure 136/65 03/14/20 09:11 O2 Sat by Pulse Oximetry (%) 94 L 03/14/20 09:11 Constitutional: Yes: Well Nourished, No Distress, Calm Cardiovascular: Yes: Regular Rate and Rhythm Respiratory: Yes: Regular, CTA Bilaterally Gastrointestinal: Yes: Normal Bowel Sounds, Soft Genitourinary: Yes: WNL Musculoskeletal: Yes: Muscle Weakness Extremities: Yes: WNL Edema: No Peripheral Pulses WNL: Yes Neurological: Yes: Alert, Oriented Psychiatric: Yes: Alert, Oriented Labs: CBC, BMP 03/13/20 11:10 03/14/20 06:30 INR, PTT INR 1.39 (0.83-1.09) H 03/13/20 11:10 Problem List - Problems (1) Spinal stenosis Assessment/Plan: -Neurology consult -Continue home meds Problems reviewed: Yes Code(s): M48.00 - SPINAL STENOSIS, SITE UNSPECIFIED (2) Paresthesia Assessment/Plan: -Continue home dose pramipexole- was hallucinating on higher dosages -Trial of gabapentin if neurology agrees Problems reviewed: Yes Code(s): R20.2 - PARESTHESIA OF SKIN (3) Leg weakness, bilateral Assessment/Plan: -PT -Physiatry consult -SNF placement Problems reviewed: Yes Code(s): R29.898 - OTH SYMPTOMS AND SIGNS INVOLVING THE MUSCULOSKELETAL SYSTEM (4) Parkinson disease Assessment/Plan: -Continue Sinemet -May continue home med Nuplazid Problems reviewed: Yes Code(s): G20 - PARKINSON'S DISEASE (5) Diabetes Assessment/Plan: -A1c 9.2 -Start Metformin 850 mg po bid -BGM AC HS -ISS -Diabetic low sodium diet -Endocrine consult Problems reviewed: Yes Code(s): E11.9 - TYPE 2 DIABETES MELLITUS WITHOUT COMPLICATIONS Qualifiers: Diabetes mellitus type: type 2 Assessment/Plan See problem list
--- NOTE | 2020-03-14 12:38 | CONSULT ---
Consult Consult Specialty:: Physiatry Dr Warren for Dr Galeas - History of Present Illness Chief Complaint: stiffness, LBP History of Present Illness: This is a 74 year old man with a medical history of Parkinson's disease, dementia, CAD ,CHF, s/p PPM, HTN, HLD, BPH, LS stenosis, who presented to the ED 03/13/2020 with 3 months worsening weakness leading to falls as well as visual/ auditory hallucinations. He notes B LBP which radiates down the entire BLE and is worse with lying in bed, as well as total numbness numbness/ stiffness, constipation and urinary hesitancy/ retention. Neurology consult is pending. He has not been seen by PT. Physiatry is being consulted for further recommendations. - Past Medical History Cardio/Vascular: Yes: AFIB, CAD, CHF, HTN, Hyperlipdemia, Other (ppm) - Past Surgical History Past Surgical History: Yes: Permanent Pacemaker - Alcohol/Substance Use Hx Alcohol Use: Yes - Smoking History Smoking history: Never smoked Have you smoked in the past 12 months: No - Social History Usual Living Arrangement: With Spouse (in house without steps to enter, 1st floor set-up inside) ADL: Independent (ambulates with walker but also has wheelchair) History of Recent Travel: No Home Medications - Allergies Allergies/Adverse Reactions: Allergies Allergy/AdvReac Type Severity Reaction Status Date / Time No Known Drug Allergies Allergy Verified 03/13/20 10:16 - Home Medications Home Medications: Ambulatory Orders Mirabegron [Myrbetriq] 50 mg PO DAILY 08/08/16 Atorvastatin Ca [Lipitor] 20 mg PO DAILY 12/11/16 Carbidopa/Levodopa [Carbidopa-Levodopa 25-100 Tab] 1 each PO Q6H 12/11/16 Potassium Chloride [Klor-Con 10] 10 meq PO DAILY 12/11/16 Pramipexole Di-HCl [Pramipexole Dihydrochloride] 0.5 mg PO HS 12/11/16 Acetaminophen [Tylenol .Regular Strength -] 650 mg PO Q4H PRN #0 tablet 12/16/16 Dexlansoprazole [Dexilant] 60 mg PO DAILY 04/21/19 Carvedilol [Coreg -] 3.125 mg PO HS 03/13/20 Citalopram Hydrobromide [Citalopram HBr] 20 mg PO DAILY 03/13/20 Furosemide [Lasix -] 40 mg PO DAILY 03/13/20 Insulin (Novolog) [Novolog] 0 units SQ ASDIR 03/13/20 Insulin Glargine,Hum.rec.anlog [Basaglar Kwikpen U-100] 0 unit SQ DAILY 03/13/20 Linaclotide [Linzess] 290 mcg PO DAILY 03/13/20 Mirabegron [Myrbetriq] 0 mg PO DAILY 03/13/20 Pimavanserin Tartrate [Nuplazid] 34 mg PO DAILY 03/13/20 Quetiapine Fumarate [Seroquel -] 25 mg PO HS 03/13/20 Review of Systems Findings/Remarks: Denies fevers, chills, changes in vision/ hearing/ mood, CP, SOB, abdominal pain, nausea, vomiting, diarrhea, dysuria. Notes constipation, urinary retention/ hesitancy, total body numbness (including face) without focal paresthesias, and LBP down entire BLE which is worse with lying down Physical Exam Vital Signs: Vital Signs Temperature 98.6 F 03/14/20 09:11 Pulse Rate 67 03/14/20 09:11 Respiratory Rate 18 03/14/20 09:11 Blood Pressure 136/65 03/14/20 09:11 O2 Sat by Pulse Oximetry (%) 94 L 03/14/20 09:11 Musculoskeletal: Yes: Other (General: calm elderly M sitting EOB NAD, no tenderness to palpation B lumbar paraspinals/ SI/ gluteals, pain improved with both flexion and extension (which are both limited by stiffness); R shoulder flexion to 60 degrees, L shoulder flexion to 75 degrees, grossly 4+/5 BUE with diffusely increased tone and slow movements, 2/5 B HF then 4+/5 BLE with diffusely increased tone and slow movements; Pinprick Intact BUE/ BLE compared to face; no BLE pitting edema, no B calf tenderness) Labs: CBC, BMP 03/13/20 11:10 03/14/20 06:30 Imaging - Results Cat Scan: Report Reviewed (Ct head 03/13/2020 shows moderate periventricular and subcortical chronic microvascular ischemic changes without acute pathology; CT cervical spine 03/13/2020 shows multilevel DDD/ DJD with moderate to marked C4-5 central stenosis, without acute pathology) Assessment/Plan Impression: 1) Deficits mobility/ ADLs 2) Deconditioning 3) Gait abnormality 4) Parkinson's disease 5) Chronic LS stenosis with radiculopathy, at baseline per patient 6) Total body numbness 7) hx dementia 8) CAD, CHF, s/p PPM, HTN, HLD 9) BPH 10) Cervical DDD/ DJD with moderate to severe C4-5 central stenosis 11) Overweight 12) Up to date flu shot/ pneumovax Recommendations: 1) PT for stretching strengthening ROM and functional mobility 2) Falls, safety precautions 3) Cardiac precautions 4) Heat to low back prn 5) Skin protection: float heels, frequent turning 6) Encourage prn bowel regimen: consider adding Colace 100mg up to 3 pills daily 7) DVT ppx: on Lovenox 8) Nutrition consult for overweight 9) Pending Neurology consult: consider adjusting Parkinson's medications 10) EMG (radiculopathy vs neuropathy) if weakness persists despite therapy and medication adjustment- outpt #[phone] 11) Discharge planning: given stiffness and weakness, would recommend inpatient rehabilitation once medically stable Thank you for this referral.
[2020-03-14] MEDS ORDERED: PNEUMOC 13-VAL CONJ-DIP CRM/PF 0.5 ML DISP.SYRIN IM ONE (13:00)
--- NOTE | 2020-03-14 17:12 | CONSULT ---
Consult - text type - Consultation Consultation Note: NEUROLOGY CONSULTATION is greatly appreciated: This 74 yo RH m man with h/o HTN, DM, BPH, Gout is well-known to me with Parkinson's disease, PD Psychosis and Severe RLS. Also has diabetic peripheral neuropathy and B/L CTS. Maintained on: Mirabegron; Atorvastatin; Carbidopa-Levodopa 25/250 QID @ 6, 10, 2 and 6; Pramipexole 0.5 mg PO HS; Dexilant; Carvedilol; Citalopram; Furosemide; Linaclotide; Pimavanserin 34 mg PO DAILY; Seroquel 25 mg PO HS Recent psychiatric admission for psychosis/ depression/ suicidal ideation. Burning leg pains were controlled on pramipexole for many years but the development of hallucinations necessitated the taper and D/C of Pramipexole and treatment with Nuplazid and quetipine. Now admitted with increased burning in the legs and decreased gait. RON: No head trauma. Chronic burn right thigh, groin NEURO: Awake, alert. O x [facility], March 2020 Hypophonic speech Masked facies. Gag OK Bradykinetic. Rest tremor both hands. ++Cogwheel rigidity. Absent AJ's. Toes downgoing Coord: No FTN Dystaxia Reduced vibration both feet. Spontaneous retropulsion IMP: Non-focal exam sig for moderately advance Parkinsons disease PD Psychosis PD-related Restless Limbs syndrome Diabetic PN B/L CTS SUGGEST: Resume correct L-Dopa dose of Sinemet 25/250 QID @ 6, 10, 2 and 6. Increase pramipexole to 0.25 mg BID at 6 and 2 and 0.5 mg HS Continue Nuplazid (Pimavanserin) 34 mg PO q AM- Family must bring meds from home Increase Quetiapine to 50 mg QHS Mobilize OO Bed to chair TID for all meals and PT for gait with walker. Thank you very much, Grey Chandler MD
[2020-03-14] MEDS: CARBIDOPA/LEVODOPA 25/250 TABLET (FP) PO SCH ×2 (18:19→22:37)
[2020-03-14] MEDS ORDERED: PT OWN MED DRAWER 7, Y5N ONE ×3 (18:26→22:39)
[2020-03-14] MEDS: LIDOCAINE PATCH REMOVAL MC SCH (22:37)
[2020-03-14] MEDS: CARVEDILOL 3.125 MG TABLET (FP) PO SCH (22:37)
[2020-03-14] MEDS: ATORVASTATIN CA 20 MG TABLET (FP) PO SCH (22:37)
[2020-03-14] MEDS: QUEtiapine FUMARATE 50 MG TABLET PO SCH (22:37)
[2020-03-14] MEDS: PRAMIPEXOLE DIHYDROCHLORIDE 0.25 MG TABLET PO SCH (22:37)
[2020-03-15] MEDS: INSULIN SLIDING SCALE (NOVOLOG) 1 VIAL SQ SCH ×3 (06:11→17:36)
[2020-03-15] MEDS: PRAMIPEXOLE DIHYDROCHLORIDE 0.25 MG TABLET PO SCH ×3 (06:14→22:06)
[2020-03-15] MEDS: CARBIDOPA/LEVODOPA 25/250 TABLET (FP) PO SCH ×4 (06:15→18:23)
[2020-03-15] MEDS ORDERED: PT OWN MED DRAWER 7, Y5N ONE ×2 (07:05→22:04)
[2020-03-15 09:15] LABS: EPI CELLS 5 /uL (0-25.1); HYALINE CASTS 0 /uL (0-3.1); URINE APPEARANCE CLEAR; URINE BACTERIA 84 /uL (0-1359); URINE BILIRUBIN NEGATIVE (NEGATIVE); URINE COLOR YELLOW; URINE GLUCOSE (UA) 1+ (NEGATIVE); URINE KETONE NEGATIVE (NEGATIVE); URINE LEUK ESTERASE NEGATIVE (NEGATIVE); URINE NITRITE NEGATIVE (NEGATIVE); URINE PROTEIN 1+ (NEGATIVE); URINE RBC 6 /uL (0-23.9); URINE WBC 2 /uL (0-25.8)
--- NOTE | 2020-03-15 10:02 | PN ---
Progress Note, Physician Chief Complaint: Generalized weakness History of Present Illness: Came in with generalized weakness NAD OOB with PT - Current Medication List Current Medications: Active Medications Acetaminophen (Tylenol -) 650 mg PO Q4H PRN PRN Reason: FEVER Atorvastatin Calcium (Lipitor -) 20 mg PO [facility] Last Admin: 03/14/20 22:37 Dose: 20 mg Documented by: Carbidopa/Levodopa (Sinemet 25/250 -) 1 each PO 0600,1000,1400,1800 [facility] Last Admin: 03/15/20 06:15 Dose: 1 each Documented by: Carvedilol (Coreg -) 3.125 mg PO [facility] Last Admin: 03/14/20 22:37 Dose: 3.125 mg Documented by: Citalopram Hydrobromide (Celexa -) 20 mg PO DAILY [facility] Last Admin: 03/14/20 09:06 Dose: 20 mg Documented by: Enoxaparin Sodium (Lovenox -) 40 mg SQ DAILY [facility] Last Admin: 03/14/20 09:06 Dose: 40 mg Documented by: Furosemide (Lasix -) 40 mg PO DAILY [facility] Last Admin: 03/14/20 09:06 Dose: 40 mg Documented by: Insulin Aspart (Novolog Vial Sliding Scale -) 1 vial SQ TIDAC [facility]; Protocol Last Admin: 03/15/20 06:11 Dose: Not Given Documented by: Metformin HCl (Glucophage -) 850 mg PO BID@0700,1630 [facility] Last Admin: 03/15/20 06:16 Dose: 850 mg Documented by: Miscellaneous (Lidoderm Patch Removal) 1 each MC DAILY@2200 [facility] Last Admin: 03/14/20 22:37 Dose: 1 each Documented by: Non-Formulary Medication (Pimavanserin Tartrate [Nuplazid]) 34 mg PO DAILY [facility] Last Admin: 03/14/20 09:04 Dose: 34 mg Documented by: Pantoprazole Sodium (Protonix -) 40 mg PO DAILY [facility] Last Admin: 03/14/20 09:06 Dose: 40 mg Documented by: Polyethylene Glycol (Miralax (For Daily Use) -) 17 gm PO DAILY [facility] Last Admin: 03/14/20 09:08 Dose: 17 grams Documented by: Pramipexole Dihydrochloride (Mirapex -) 0.75 mg PO [facility] Last Admin: 03/14/20 22:37 Dose: 0.75 mg Documented by: Pramipexole Dihydrochloride (Mirapex -) 0.25 mg PO BID@0600,1400 [facility] Last Admin: 03/15/20 06:14 Dose: 0.25 mg Documented by: Quetiapine Fumarate (Seroquel -) 50 mg PO HS [facility] Last Admin: 03/14/20 22:37 Dose: 50 mg Documented by: Senna (Senna -) 2 tab PO HS PRN PRN Reason: CONSTIPATION - Objective Vital Signs: Vital Signs Temperature 98.1 F 03/15/20 06:00 Pulse Rate 58 L 03/15/20 06:00 Respiratory Rate 20 03/15/20 06:00 Blood Pressure 127/57 L 03/15/20 06:00 O2 Sat by Pulse Oximetry (%) 97 03/15/20 00:00 Constitutional: Yes: Well Nourished, No Distress, Calm Cardiovascular: Yes: Regular Rate and Rhythm Respiratory: Yes: Regular, CTA Bilaterally Gastrointestinal: Yes: Normal Bowel Sounds, Soft, Abdomen, Obese Genitourinary: Yes: WNL Musculoskeletal: Yes: Muscle Weakness Extremities: Yes: WNL Edema: No Peripheral Pulses WNL: Yes Neurological: Yes: Alert, Oriented Psychiatric: Yes: Alert, Oriented Labs: CBC, BMP 03/13/20 11:10 03/14/20 06:30 INR, PTT INR 1.39 (0.83-1.09) H 03/13/20 11:10 Problem List - Problems (1) Spinal stenosis Assessment/Plan: -Neurology consult -Continue home meds Problems reviewed: Yes Code(s): M48.00 - SPINAL STENOSIS, SITE UNSPECIFIED (2) Paresthesia Assessment/Plan: -Pramipexole 0.25 mg in AM and 1 mg at bedtime -Seen by Neurology -Trial of gabapentin if neurology agrees Problems reviewed: Yes Code(s): R20.2 - PARESTHESIA OF SKIN (3) Leg weakness, bilateral Assessment/Plan: -PT -Physiatry consult -SNF placement Problems reviewed: Yes Code(s): R29.898 - OTH SYMPTOMS AND SIGNS INVOLVING THE MUSCULOSKELETAL SYSTEM (4) Parkinson disease Assessment/Plan: -Continue Sinemet -May continue home med Nuplazid Problems reviewed: Yes Code(s): G20 - PARKINSON'S DISEASE (5) Diabetes Assessment/Plan: -A1c 9.2 -Start Metformin 850 mg po bid -Add Januvia 50 mg po daily -BGM AC HS -ISS -Diabetic low sodium diet -Endocrine consult Problems reviewed: Yes Code(s): E11.9 - TYPE 2 DIABETES MELLITUS WITHOUT COMPLICATIONS Qualifiers: Diabetes mellitus type: type 2 Assessment/Plan See problem list Spoke to valeri Mistry, in agreement for pt to go to SNF to [facility].
[2020-03-15] MEDS ORDERED: CEFTRIAXONE 1 GM in DEXTROSE 5%-WATER - 50 ML IVPB SCH (11:45)
[2020-03-15] MEDS ORDERED: cefTRIAXone SODIUM 1 GM VIAL ONE (12:01)
[2020-03-15] MEDS ORDERED: DEXTROSE 5%-WATER - 50 ML IVPB ONE (12:01)
[2020-03-15] MEDS: FUROSEMIDE 40 MG TABLET (FP) PO SCH (12:06)
[2020-03-15] MEDS: PATIENT'S OWN MEDICATION (NON-FORMULARY) (Pimavanserin Tartrate [Nuplazid] 34 MG) PO SCH (12:08)
[2020-03-15] MEDS: POLYETHYLENE GLYCOL 3350 119 GM BTL PO SCH (12:09)
[2020-03-15] MEDS: ENOXAPARIN NA (PORCINE) 40 MG/0.4 ML DISP.SYRIN SQ SCH (12:12)
[2020-03-15] MEDS ORDERED: ACETAMINOPHEN 325 MG TABLET (FP) PO PRN (13:00)
[2020-03-15] MEDS: CITALOPRAM HYDROBROMIDE 20 MG TABLET PO SCH (13:10)
[2020-03-15] MEDS: PANTOPRAZOLE 40 MG TABLET PO SCH (13:10)
--- NOTE | 2020-03-15 13:29 | PN ---
Progress Note (short form) - Note Progress Note: ID CONSULT DICTATED ASYMPTOMATIC BACTERURIA BPH ?NEUROGENIC BLADDER PARKINSONISM OBSERVE OFF ANTIBIOTICS
--- NOTE | 2020-03-15 14:43 | CONS ---
INFECTIOUS DISEASE CONSULTATION DATE OF CONSULTATION: DATE OF DICTATION: 03/15/2020 The patient is a 74-year-old male with a history of parkinsonism, BPH, and possible neurogenic bladder evaluated for positive urine culture. He was admitted to the hospital on March 13, 2020, with increasing bilateral lower extremity weakness. According to the notes, he has been experiencing worsening lower extremity weakness over the past 2-3 months. He was evaluated at [facility] where a CAT scan of the head was performed and was negative. He was seen in consultation by Neurology whose opinion was moderately advanced parkinsonism, Parkinson-related restless limb syndrome. The patient has a history of BPH. He reports seeing a urologist in the past. He does have difficulty voiding at times. At the present time, however, he reports he is able to void. He denies any dysuria. He also described difficulty voiding, possibly secondary to neurogenic bladder related to his parkinsonism. PAST MEDICAL HISTORY: Positive for parkinsonism, BPH, hypertension, hyperlipidemia, congestive heart failure, coronary artery disease, diabetes mellitus, spinal stenosis. PAST SURGICAL HISTORY: Status post permanent pacemaker. ALLERGIES: No known allergies. MEDICATIONS: Ceftriaxone, Lovenox, Lipitor, Coreg, Sinemet, Lasix, Protonix. SOCIAL HISTORY: He is a nonsmoker, occasional EtOH. Resides in the community with family. SYSTEMS REVIEW: Neurologic: As per HPI. Cardiac: Negative chest pain or palpitations. Respiratory: Negative cough or sputum production. Gastrointestinal: Negative vomiting or diarrhea. Genitourinary: As per HPI. LABORATORY DATA: White count 9.1, hematocrit 41.6, platelets 162. Creatinine 1.0. Urine leukocyte esterase negative. 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 COVID-19 PCR negative. PHYSICAL EXAMINATION: General: He is awake, in no acute distress, not acutely toxic appearing. Vital Signs: Temperature 97.6; blood pressure 106/66; pulse 64, regular; respirations 18 per minute. HEENT: Sclerae are anicteric. Heart: Sounds S1, S2. Lungs: Clear. Abdomen: Soft. No suprapubic or flank tenderness. Extremities: Negative for edema. IMPRESSION: 1. Asymptomatic bacteriuria. 2. Benign prostatic hypertrophy. 3. Possible neurogenic bladder. 4. Parkinsonism. Would observe off antibiotic therapy. I do not recommend treatment for asymptomatic bacteriuria. Outpatient urology followup. Thank you for the kind referral. CLAIRE GAVIN M.D. [id number]
--- NOTE | 2020-03-15 20:39 | CONSULT ---
Consult Consult Specialty:: Endocrine Referred by:: gary mckinley Reason for Consultation:: diabetes mellitus type 2 - History of Present Illness Chief Complaint: weak and dizzy high sugars History of Present Illness: 74Y/O M HX of DMT2,htn,hld,parkinson's dementia. BPH, CHF, CAD, pacemaker, lumbosacral spinal stenosis, presented for leg weakness difficulty walking and frequent falls,has lost ballance and control of blood sugars,frequent urination,headache and numbness in legs easily short of breath,no cough fever nausea or vomiting. - Past Medical History Cardio/Vascular: Yes: AFIB, CAD, CHF, HTN, Hyperlipdemia, Other (ppm) - Past Surgical History Past Surgical History: Yes: Permanent Pacemaker - Alcohol/Substance Use Hx Alcohol Use: Yes - Smoking History Smoking history: Never smoked Have you smoked in the past 12 months: No - Social History Usual Living Arrangement: With Spouse (in house without steps to enter, 1st floor set-up inside) ADL: Independent (ambulates with walker but also has wheelchair) History of Recent Travel: No Home Medications - Allergies Allergies/Adverse Reactions: Allergies Allergy/AdvReac Type Severity Reaction Status Date / Time No Known Drug Allergies Allergy Verified 03/13/20 10:16 - Home Medications Home Medications: Ambulatory Orders Mirabegron [Myrbetriq] 50 mg PO DAILY 08/08/16 Atorvastatin Ca [Lipitor] 20 mg PO DAILY 12/11/16 Pramipexole Di-HCl [Pramipexole Dihydrochloride] 0.5 mg PO HS 12/11/16 Acetaminophen [Tylenol .Regular Strength -] 650 mg PO Q4H PRN #0 tablet 12/16/16 Carvedilol [Coreg -] 3.125 mg PO HS 03/13/20 Citalopram Hydrobromide [Citalopram HBr] 20 mg PO DAILY 03/13/20 Furosemide [Lasix -] 40 mg PO DAILY 03/13/20 Pimavanserin Tartrate [Nuplazid] 34 mg PO DAILY 03/13/20 Carbidopa/Levodopa 25/250 [Sinemet 25/250 -] 1 each PO 0600,1000,1400,1800 tablet 03/15/20 Cefuroxime Axetil [Ceftin -] 500 mg PO BID #14 tablet 03/15/20 Enoxaparin [Lovenox -] 40 mg SQ DAILY disp.syrin 03/15/20 Insulin Sliding Scale [Novolog Vial Sliding Scale -] 1 vial SQ TIDAC units 03/15/20 Lidocaine Patch Removal [Lidoderm Patch Removal] 1 each MC DAILY@2200 each 03/15/20 Pantoprazole Sodium [Protonix -] 40 mg PO DAILY tablet.ec 03/15/20 Polyethylene Glycol 3350 [Miralax 119 gm Btl -] 17 gm PO DAILY bottle 03/15/20 Pramipexole Dihydrochloride [Mirapex -] 0.25 mg PO BID@0600,1400 tablet 03/15/20 Quetiapine Fumarate [Seroquel -] 50 mg PO HS tablet 03/15/20 Sennosides [Senna -] 2 tab PO HS PRN tablet 03/15/20 Sitagliptin Phosphate [Januvia -] 50 mg PO DAILY@0700 #30 tablet 03/15/20 metFORMIN HCL [Glucophage -] 850 mg PO BID@0700,1630 tablet 03/15/20 Review of Systems - Review of Systems Constitutional: reports: Lethargy, Malaise Eyes: reports: No Symptoms HENT: reports: No Symptoms Neck: reports: No Symptoms Cardiovascular: reports: Shortness of Breath Respiratory: reports: Exercise Intolerance, SOB, SOB on Exertion Gastrointestinal: reports: Bloating, Indigestion Genitourinary: reports: Frequency Breasts: reports: No Symptoms Reported Musculoskeletal: reports: Muscle Cramps, Muscle Weakness Physical Exam Vital Signs: Vital Signs Temperature 98.7 F 03/15/20 18:00 Pulse Rate 74 03/15/20 18:00 Respiratory Rate 18 03/15/20 18:00 Blood Pressure 129/68 03/15/20 18:00 O2 Sat by Pulse Oximetry (%) 98 03/15/20 18:00 Constitutional: Yes: Calm Eyes: Yes: Conjunctiva Clear HENT: Yes: Normocephalic Neck: Yes: Supple Cardiovascular: Yes: Regular Rate and Rhythm Respiratory: Yes: CTA Bilaterally Labs: CBC, BMP 03/13/20 11:10 03/14/20 06:30 Problem List - Problems (1) Fall Problems reviewed: Yes Code(s): W19.XXXA - UNSPECIFIED FALL, INITIAL ENCOUNTER Qualifiers: Qualified Code(s): W19.XXXA - Unspecified fall, initial encounter (2) Leg weakness, bilateral Code(s): R29.898 - OTH SYMPTOMS AND SIGNS INVOLVING THE MUSCULOSKELETAL SYSTEM (3) Paresthesia Code(s): R20.2 - PARESTHESIA OF SKIN (4) Parkinson disease Code(s): G20 - PARKINSON'S DISEASE (5) Spinal stenosis Code(s): M48.00 - SPINAL STENOSIS, SITE UNSPECIFIED (6) Acute on chronic systolic (congestive) heart failure Code(s): I50.23 - ACUTE ON CHRONIC SYSTOLIC (CONGESTIVE) HEART FAILURE (7) Bifascicular block Code(s): I45.2 - BIFASCICULAR BLOCK (8) CAD (coronary artery disease) Code(s): I25.10 - ATHSCL HEART DISEASE OF [place] CORONARY ARTERY W/O ANG PCTRS Assessment/Plan Current Active Problems Diabetes mellitus type 2,neuropathy hyperglycemia Fall (Acute) Leg weakness, bilateral (Acute) Paresthesia (Acute) Parkinson disease (Acute) Spinal stenosis (Acute) Abnormal Lab Results 03/15/20 07:50 Urine Protein 1+ H Urine Glucose (UA) 1+ H Laboratory Results - last 24 hr 03/14/20 03/15/20 03/15/20 23:47 06:10 07:50 POC Glucometer 217 144 Urine Color Yellow Urine Appearance Clear Urine pH 6.0 Ur Specific [place] 1.015 Urine Protein 1+ H Urine Glucose (UA) 1+ H Urine Ketones Negative Urine Blood Negative Urine Nitrite Negative Urine Bilirubin Negative Urine Urobilinogen 1.0 Ur Leukocyte Esterase Negative Urine WBC (Auto) 2 Urine RBC (Auto) 6 Urine Casts (Auto) 0 U Epithel Cells (Auto) 5 Urine Bacteria (Auto) 84 03/15/20 03/15/20 11:54 16:55 POC Glucometer 240 221 Urine Color Urine Appearance Urine pH Ur Specific [place] Urine Protein Urine Glucose (UA) Urine Ketones Urine Blood Urine Nitrite Urine Bilirubin Urine Urobilinogen Ur Leukocyte Esterase Urine WBC (Auto) Urine RBC (Auto) Urine Casts (Auto) U Epithel Cells (Auto) Urine Bacteria (Auto) Laboratory Tests 03/13/20 03/13/20 03/13/20 11:10 11:40 18:40 Sodium 139 Potassium 5.2 H Chloride 102 Carbon Dioxide 31 Anion Gap 6 L BUN 23.0 H Creatinine 1.1 POC Glucometer 215 Hemoglobin A1c % 9.2 H 03/13/20 21:41 Sodium Potassium Chloride Carbon Dioxide Anion Gap BUN Creatinine POC Glucometer 253 Hemoglobin A1c % plan: bgm achs,novolog scale levemir 10 units ac breakfeast diet and nutrition tsh free t4 b12 level
--- NOTE | 2020-03-15 20:51 | DS ---
Physical Examination Vital Signs: Vital Signs Temperature 98.7 F 03/15/20 18:00 Pulse Rate 74 03/15/20 18:00 Respiratory Rate 18 03/15/20 18:00 Blood Pressure 129/68 03/15/20 18:00 O2 Sat by Pulse Oximetry (%) 98 03/15/20 18:00 Findings/Remarks: (1) Spinal stenosis Assessment/Plan: -Neurology consult -Continue home meds Problems reviewed: Yes Code(s): M48.00 - SPINAL STENOSIS, SITE UNSPECIFIED (2) Paresthesia Assessment/Plan: -Pramipexole 0.25 mg in AM and 1 mg at bedtime -Seen by Neurology Problems reviewed: Yes Code(s): R20.2 - PARESTHESIA OF SKIN (3) Leg weakness, bilateral Assessment/Plan: -PT -Physiatry consult -SNF placement Problems reviewed: Yes Code(s): R29.898 - OTH SYMPTOMS AND SIGNS INVOLVING THE MUSCULOSKELETAL SYSTEM (4) Parkinson disease Assessment/Plan: -Continue Sinemet -May continue home med Nuplazid Problems reviewed: Yes Code(s): G20 - PARKINSON'S DISEASE (5) Diabetes Assessment/Plan: -A1c 9.2 -Start Metformin 850 mg po bid -Add Januvia 50 mg po daily -BGM AC HS -ISS -Diabetic low sodium diet -Endocrine consult Problems reviewed: Yes Code(s): E11.9 - TYPE 2 DIABETES MELLITUS WITHOUT COMPLICATIONS Qualifiers: Diabetes mellitus type: type 2 Assessment/Plan See problem list Spoke to son Fede, in agreement for pt to go to SNF to [facility]. Constitutional: Yes: Well Nourished, No Distress, Calm Cardiovascular: Yes: Regular Rate and Rhythm Respiratory: Yes: Regular, CTA Bilaterally Gastrointestinal: Yes: Normal Bowel Sounds, Soft, Abdomen, Obese Renal/: Yes: WNL Musculoskeletal: Yes: Muscle Weakness Extremities: Yes: WNL Edema: No Peripheral Pulses WNL: Yes Neurological: Yes: Alert, Oriented Psychiatric: Yes: Alert, Oriented Labs: CBC, BMP 03/13/20 11:10 03/14/20 06:30 Discharge Summary Problems reviewed: Yes Reason For Visit: UNSTEADY GAIT AMS PARKINSONS DISEASE FALL Current Active Problems Fall (Acute) Leg weakness, bilateral (Acute) Paresthesia (Acute) Parkinson disease (Acute) Spinal stenosis (Acute) Condition: Stable - Instructions Referrals: Nikolai Gutierrez MD [Primary Care Provider] - Disposition: [facility] - Home Medications Comprehensive Discharge Medication List: Ambulatory Orders Mirabegron [Myrbetriq] 50 mg PO DAILY 08/08/16 Atorvastatin Ca [Lipitor] 20 mg PO DAILY 12/11/16 Pramipexole Di-HCl [Pramipexole Dihydrochloride] 0.5 mg PO HS 12/11/16 Acetaminophen [Tylenol .Regular Strength -] 650 mg PO Q4H PRN #0 tablet 12/16/16 Carvedilol [Coreg -] 3.125 mg PO HS 03/13/20 Citalopram Hydrobromide [Citalopram HBr] 20 mg PO DAILY 03/13/20 Furosemide [Lasix -] 40 mg PO DAILY 03/13/20 Pimavanserin Tartrate [Nuplazid] 34 mg PO DAILY 03/13/20 Carbidopa/Levodopa 25/250 [Sinemet 25/250 -] 1 each PO 0600,1000,1400,1800 tablet 03/15/20 Cefuroxime Axetil [Ceftin -] 500 mg PO BID #14 tablet 03/15/20 Enoxaparin [Lovenox -] 40 mg SQ DAILY disp.syrin 03/15/20 Insulin Sliding Scale [Novolog Vial Sliding Scale -] 1 vial SQ TIDAC units 03/15/20 Lidocaine Patch Removal [Lidoderm Patch Removal] 1 each MC DAILY@2200 each 03/15/20 Pantoprazole Sodium [Protonix -] 40 mg PO DAILY tablet.ec 03/15/20 Polyethylene Glycol 3350 [Miralax 119 gm Btl -] 17 gm PO DAILY bottle 03/15/20 Pramipexole Dihydrochloride [Mirapex -] 0.25 mg PO BID@0600,1400 tablet 03/15/20 Quetiapine Fumarate [Seroquel -] 50 mg PO HS tablet 03/15/20 Sennosides [Senna -] 2 tab PO HS PRN tablet 03/15/20 Sitagliptin Phosphate [Januvia -] 50 mg PO DAILY@0700 #30 tablet 03/15/20 metFORMIN HCL [Glucophage -] 850 mg PO BID@0700,1630 tablet 03/15/20 Prescription Drug Monitoring Program (I-STOP) results: I-STOP reviewed and no issues identified
[2020-03-15] MEDS: CEFUROXIME AXETIL 500 MG TABLET PO SCH (22:05)
[2020-03-15] MEDS: QUEtiapine FUMARATE 50 MG TABLET PO SCH (22:05)
[2020-03-15] MEDS: CARVEDILOL 3.125 MG TABLET (FP) PO SCH (22:05)
[2020-03-15] MEDS: ATORVASTATIN CA 20 MG TABLET (FP) PO SCH (22:05)
[2020-03-15] MEDS: LIDOCAINE PATCH REMOVAL MC SCH (22:06)
[2020-03-15] MEDS ORDERED: INSULIN (NOVOLOG) ASPART 100 UNITS/ML 10ML VIAL SQ ONE (22:46)
[2020-03-15] MEDS ORDERED: INSULIN (NOVOLOG) ASPART 100 UNITS/ML 10ML VIAL ONE (23:42)
[2020-03-16] MEDS: CARBIDOPA/LEVODOPA 25/250 TABLET (FP) PO SCH ×3 (06:40→13:28)
[2020-03-16] MEDS: PRAMIPEXOLE DIHYDROCHLORIDE 0.25 MG TABLET PO SCH ×2 (06:40→13:28)
[2020-03-16] MEDS: INSULIN SLIDING SCALE (NOVOLOG) 1 VIAL SQ SCH ×2 (06:46→12:07)
[2020-03-16] MEDS ORDERED: sitaGLIPtin PHOSPHATE 50 MG TABLET PO SCH (07:00)
[2020-03-16] MEDS ORDERED: INSULIN (LEVEMIR) 100 UNITS/ML UNITS SQ SCH (07:00)
[2020-03-16] MEDS ORDERED: PT OWN MED DRAWER 7, Y5N ONE ×4 (07:11→13:22)
[2020-03-16] MEDS: CEFUROXIME AXETIL 500 MG TABLET PO SCH (10:04)
[2020-03-16] MEDS: CITALOPRAM HYDROBROMIDE 20 MG TABLET PO SCH (10:05)
[2020-03-16] MEDS: FUROSEMIDE 40 MG TABLET (FP) PO SCH (10:05)
[2020-03-16] MEDS: PANTOPRAZOLE 40 MG TABLET PO SCH (10:06)
[2020-03-16] MEDS: PATIENT'S OWN MEDICATION (NON-FORMULARY) (Pimavanserin Tartrate [Nuplazid] 34 MG) PO SCH (10:06)
[2020-03-16] MEDS: ENOXAPARIN NA (PORCINE) 40 MG/0.4 ML DISP.SYRIN SQ SCH (10:07)
[2020-03-16] MEDS: POLYETHYLENE GLYCOL 3350 119 GM BTL PO SCH (10:09)
--- NOTE | 2020-03-16 12:52 | DS ---
Physical Examination Vital Signs: Vital Signs Temperature 98.2 F 03/16/20 08:55 Pulse Rate 77 03/16/20 08:55 Respiratory Rate 18 03/16/20 08:55 Blood Pressure 121/67 03/16/20 08:55 O2 Sat by Pulse Oximetry (%) 95 03/16/20 08:55 Cardiovascular: Yes: S1, S2 Respiratory: Yes: Regular, CTA Bilaterally Gastrointestinal: Yes: Normal Bowel Sounds, Soft Edema: No Labs: CBC, BMP 03/13/20 11:10 03/14/20 06:30 Discharge Summary Problems reviewed: Yes Reason For Visit: UNSTEADY GAIT AMS PARKINSONS DISEASE FALL Current Active Problems Fall (Acute) Leg weakness, bilateral (Acute) Paresthesia (Acute) Parkinson disease (Acute) Spinal stenosis (Acute) Hospital Course: (1) Spinal stenosis Assessment/Plan: -Neurology consult -Continue home meds Problems reviewed: Yes Code(s): M48.00 - SPINAL STENOSIS, SITE UNSPECIFIED (2) Paresthesia Assessment/Plan: -Pramipexole 0.25 mg in AM and 1 mg at bedtime -Seen by Neurology Problems reviewed: Yes Code(s): R20.2 - PARESTHESIA OF SKIN (3) Leg weakness, bilateral Assessment/Plan: -PT -Physiatry consult -SNF placement Problems reviewed: Yes Code(s): R29.898 - OTH SYMPTOMS AND SIGNS INVOLVING THE MUSCULOSKELETAL SYSTEM (4) Parkinson disease Assessment/Plan: -Continue Sinemet -May continue home med Nuplazid Problems reviewed: Yes Code(s): G20 - PARKINSON'S DISEASE (5) Diabetes Assessment/Plan: -A1c 9.2 -Start Metformin 850 mg po bid -Add Januvia 50 mg po daily -BGM AC HS -ISS -Diabetic low sodium diet -Endocrine consult Problems reviewed: Yes Code(s): E11.9 - TYPE 2 DIABETES MELLITUS WITHOUT COMPLICATIONS Qualifiers: Diabetes mellitus type: type 2 Condition: Stable - Instructions Referrals: Nikolai Gutierrez MD [Primary Care Provider] - Disposition: RETIREMENT FACILITY - Home Medications Comprehensive Discharge Medication List: Ambulatory Orders Mirabegron [Myrbetriq] 50 mg PO DAILY 08/08/16 Atorvastatin Ca [Lipitor] 20 mg PO DAILY 12/11/16 Pramipexole Di-HCl [Pramipexole Dihydrochloride] 0.5 mg PO HS 12/11/16 Acetaminophen [Tylenol .Regular Strength -] 650 mg PO Q4H PRN #0 tablet 12/16/16 Carvedilol [Coreg -] 3.125 mg PO HS 03/13/20 Citalopram Hydrobromide [Citalopram HBr] 20 mg PO DAILY 03/13/20 Furosemide [Lasix -] 40 mg PO DAILY 03/13/20 Pimavanserin Tartrate [Nuplazid] 34 mg PO DAILY 03/13/20 Carbidopa/Levodopa 25/250 [Sinemet 25/250 -] 1 each PO 0600,1000,1400,1800 tablet 03/15/20 Cefuroxime Axetil [Ceftin -] 500 mg PO BID #14 tablet 03/15/20 Enoxaparin [Lovenox -] 40 mg SQ DAILY disp.syrin 03/15/20 Insulin Sliding Scale [Novolog Vial Sliding Scale -] 1 vial SQ TIDAC units 03/15/20 Lidocaine Patch Removal [Lidoderm Patch Removal] 1 each MC DAILY@2200 each 03/15/20 Pantoprazole Sodium [Protonix -] 40 mg PO DAILY tablet.ec 03/15/20 Polyethylene Glycol 3350 [Miralax 119 gm Btl -] 17 gm PO DAILY bottle 03/15/20 Pramipexole Dihydrochloride [Mirapex -] 0.25 mg PO BID@0600,1400 tablet 03/15/20 Quetiapine Fumarate [Seroquel -] 50 mg PO HS tablet 03/15/20 Sennosides [Senna -] 2 tab PO HS PRN tablet 03/15/20 Sitagliptin Phosphate [Januvia -] 50 mg PO DAILY@0700 #30 tablet 03/15/20 metFORMIN HCL [Glucophage -] 850 mg PO BID@0700,1630 tablet 03/15/20
[2020-03-16 14:18] VITALS: BP 121/59; PULSE 67; TEMP 98.8
== END 2020-03-16 15:10 | DRG 57 ==
LOC: JER 10:00 → SUPCPDRO 10:00 → JERBED 16:20 → J8W 18:08
PROVIDERS: ADMIT Family Medicine; ATTEND Family Medicine
DX: G20 Parkinson's disease (principal); E11.40 Type 2 diabetes mellitus with diabetic neuropathy, unspecified; G25.81 Restless legs syndrome; M10.9 Gout, unspecified; F03.90 Unspecified dementia, unspecified severity, without behavioral disturbance, psychotic disturbance, mood disturbance, and anxiety; I50.9 Heart failure, unspecified; M48.07 Spinal stenosis, lumbosacral region; M54.17 Radiculopathy, lumbosacral region; R26.9 Unspecified abnormalities of gait and mobility; E11.65 Type 2 diabetes mellitus with hyperglycemia; N40.0 Benign prostatic hyperplasia without lower urinary tract symptoms; E66.9 Obesity, unspecified; Z68.28 Body mass index [BMI] 28.0-28.9, adult; I25.10 Atherosclerotic heart disease of native coronary artery without angina pectoris
CPT/HCPCS: 36415; 70450-TC; 71045-TC-FY; 72125-TC; 80048; 80053; 81003; 82550; 82962; 83036; 83735; 83880; 84484; 85025; 85610; 87086; 87186; 93005; 93010; 97116-GP; 97162-GP; 99285-25; U0003

== ENCOUNTER 2020-09-20 20:25 | Inpatient (IN) | payer OTHER, MEDICARE ==
[2020-09-20 20:36] VITALS: BMI 27.4
[2020-09-20 22:24] LABS: VENOUS BASE EXCESS 5.1 mmol/L (-2-2); VENOUS PCO2 52.9 mmHg (38-52); VENOUS PH 7.391 (7.310-7.410)
[2020-09-20 22:27] LABS: BASO % 0.7 % (0-2.0); EOS % 1.9 % (0-4.5); HEMATOCRIT 38.5 % (35.4-49); HEMOGLOBIN 12.5 GM/dL (11.7-16.9); LYMPH % 24.1 % (8-40); MCH 25.5 pg (25.7-33.7); MCHC 32.4 g/dl (32.0-35.9); MEAN CELL VOLUME 78.8 fl (80-96); MEAN PLT VOLUME 10.9 fl (7.5-11.1); MONO % 11.7 % (3.8-10.2); NEUT % 61.6 % (42.8-82.8); PLATELET COUNT 210 K/MM3 (134-434); RBC 4.89 M/mm3 (4.00-5.60); RDW 15.6 % (11.9-15.9); WHITE BLOOD COUNT 7.2 K/mm3 (4.0-10.0)
[2020-09-20 22:37] LABS: INR 1.51 (0.83-1.09)
[2020-09-20 22:55] LABS: CHLORIDE 101 mmol/L (98-107); POTASSIUM 4.3 mmol/L (3.5-5.1); SODIUM 135 mmol/L (136-145)
[2020-09-20 22:57] LABS: CALCIUM 8.8 mg/dL (8.5-10.1)
[2020-09-20 22:58] LABS: ALBUMIN 3.3 g/dl (3.4-5.0); ANION GAP 4 MMOL/L (8-16); BLOOD UREA NITROGEN 26.5 mg/dL (7-18); CO2 30 mmol/L (21-32); GLUCOSE,RANDOM 343 mg/dL (74-106); MAGNESIUM 1.8 mg/dL (1.8-2.4)
[2020-09-20 23:01] LABS: BILIRUBIN,DIRECT 0.2 mg/dL (0.0-0.2); CREATININE 1.2 mg/dL (0.55-1.3); SGOT/AST 22 U/L (15-37); SGPT/ALT 12 U/L (13-61)
[2020-09-20 23:03] LABS: BILIRUBIN,TOTAL 0.5 mg/dL (0.2-1); TOT PROT 6.6 g/dl (6.4-8.2)
[2020-09-20 23:04] LABS: ALK PHOS 103 U/L (45-117); LDH 234 U/L (87-246)
[2020-09-21] MEDS ORDERED: SODIUM CHLORIDE 0.9% 500 ML INFUS.BAG IV ONE (01:05)
[2020-09-21 02:55] LABS: EPI CELLS 13 /uL (0-25.1); HYALINE CASTS 0 /uL (0-3.1); PH,URINE 5.5 (5.0-8.0); URINE APPEARANCE CLEAR; URINE BACTERIA 66 /uL (0-1359); URINE BILIRUBIN NEGATIVE (NEGATIVE); URINE COLOR YELLOW; URINE GLUCOSE (UA) 1+ (NEGATIVE); URINE KETONE NEGATIVE (NEGATIVE); URINE LEUK ESTERASE 1+ (NEGATIVE); URINE NITRITE NEGATIVE (NEGATIVE); URINE PROTEIN 1+ (NEGATIVE); URINE RBC 8 /uL (0-23.9); URINE UROBILINOGEN 0.2 mg/dL (0.2-1.0); URINE WBC 229 /uL (0-25.8)
[2020-09-21 06:14] LABS: BASO % 0.7 % (0-2.0); EOS % 1.6 % (0-4.5); HEMATOCRIT 38.7 % (35.4-49); HEMOGLOBIN 12.7 GM/dL (11.7-16.9); LYMPH % 25.7 % (8-40); MCH 25.7 pg (25.7-33.7); MCHC 32.9 g/dl (32.0-35.9); MEAN CELL VOLUME 78.1 fl (80-96); MEAN PLT VOLUME 10.5 fl (7.5-11.1); MONO % 10.1 % (3.8-10.2); NEUT % 61.9 % (42.8-82.8); PLATELET COUNT 215 K/MM3 (134-434); RBC 4.96 M/mm3 (4.00-5.60); RDW 15.3 % (11.9-15.9); WHITE BLOOD COUNT 7.4 K/mm3 (4.0-10.0)
[2020-09-21 06:43] LABS: CALCIUM 8.8 mg/dL (8.5-10.1)
[2020-09-21 06:44] LABS: ALBUMIN 3.3 g/dl (3.4-5.0); BLOOD UREA NITROGEN 21.2 mg/dL (7-18); MAGNESIUM 1.8 mg/dL (1.8-2.4)
[2020-09-21 06:47] LABS: PHOSPHOROUS 3.6 mg/dL (2.5-4.9)
[2020-09-21 06:48] LABS: TOT PROT 6.5 g/dl (6.4-8.2)
[2020-09-21 06:50] LABS: BILIRUBIN,TOTAL 0.7 mg/dL (0.2-1)
[2020-09-21] MEDS ORDERED: INSULIN SLIDING SCALE (NOVOLOG) 1 VIAL SQ SCH (07:00)
[2020-09-21] MEDS: INSULIN SLIDING SCALE (NOVOLOG) 1 VIAL SQ SCH ×4 (08:55→22:01)
[2020-09-21] MEDS ORDERED: ASCORBIC ACID 500 MG TABLET (FP) ONE (09:19)
[2020-09-21] MEDS ORDERED: ZINC SULFATE 220 MG CAPSULE (FP) ONE (09:19)
[2020-09-21] MEDS ORDERED: CHOLECALCIFEROL (VIT D3) 1,000 UNIT (25 MCG) TABLET ONE (09:19)
[2020-09-21] MEDS ORDERED: CARBIDOPA/LEVODOPA 25/250 TABLET (FP) ONE (09:20)
[2020-09-21] MEDS ORDERED: ENOXAPARIN NA (PORCINE) 40 MG/0.4 ML DISP.SYRIN SQ ONE (09:20)
[2020-09-21] MEDS: ASCORBIC ACID 500 MG TABLET (FP) PO SCH ×2 (09:34→21:16)
[2020-09-21] MEDS: CHOLECALCIFEROL (VIT D3) 1,000 UNIT (25 MCG) TABLET PO SCH (09:34)
[2020-09-21] MEDS: ZINC SULFATE 220 MG CAPSULE (FP) PO SCH (09:34)
[2020-09-21] MEDS: CARBIDOPA/LEVODOPA 25/250 TABLET (FP) PO SCH ×3 (09:34→17:17)
[2020-09-21] MEDS: ENOXAPARIN NA (PORCINE) 40 MG/0.4 ML DISP.SYRIN SQ SCH (09:34)
[2020-09-21] MEDS ORDERED: PATIENT'S OWN MEDICATION (NON-FORMULARY) (Mirabegron [Myrbetriq] 50 MG Tab.Er.24h) PO SCH (10:00)
[2020-09-21] MEDS ORDERED: PATIENT'S OWN MEDICATION (NON-FORMULARY) (Pimavanserin Tartrate [Nuplazid] 34 MG Capsule) PO SCH (10:00)
[2020-09-21] MEDS: PRAMIPEXOLE DIHYDROCHLORIDE 0.25 MG TABLET PO SCH (13:55)
[2020-09-21] MEDS: PRAMIPEXOLE DIHYDROCHLORIDE 0.5 MG TABLET PO SCH (21:16)
[2020-09-22] MEDS: CARBIDOPA/LEVODOPA 25/250 TABLET (FP) PO SCH ×4 (06:10→17:52)
[2020-09-22] MEDS: PRAMIPEXOLE DIHYDROCHLORIDE 0.25 MG TABLET PO SCH ×2 (06:10→13:07)
[2020-09-22] MEDS: INSULIN SLIDING SCALE (NOVOLOG) 1 VIAL SQ SCH ×3 (06:11→16:14)
[2020-09-22] MEDS: ASCORBIC ACID 500 MG TABLET (FP) PO SCH ×2 (10:00→22:14)
[2020-09-22] MEDS: ZINC SULFATE 220 MG CAPSULE (FP) PO SCH (10:00)
[2020-09-22] MEDS: CHOLECALCIFEROL (VIT D3) 1,000 UNIT (25 MCG) TABLET PO SCH (10:00)
[2020-09-22] MEDS: ENOXAPARIN NA (PORCINE) 40 MG/0.4 ML DISP.SYRIN SQ SCH (10:00)
[2020-09-22] MEDS ORDERED: BAMLANIVIMAB 700 MG in SODIUM CHLORIDE 250 ML IVPB ONE (10:30)
[2020-09-22] MEDS ORDERED: DEXTROSE 5%-WATER - 50 ML IVPB ONE (11:11)
[2020-09-22] MEDS ORDERED: cefTRIAXone SODIUM 1 GM VIAL ONE (11:11)
[2020-09-22] MEDS: CEFTRIAXONE 1 GM in DEXTROSE 5%-WATER - 50 ML IVPB SCH (11:16)
[2020-09-22] MEDS: FUROSEMIDE 40 MG TABLET (FP) PO SCH (11:16)
[2020-09-22] MEDS ORDERED: MECLIZINE HCL 25 MG TABLET (FP) PO PRN (13:37)
[2020-09-22] MEDS ORDERED: INSULIN (NOVOLOG) ASPART 100 UNITS/ML 10ML VIAL ONE (16:36)
[2020-09-22] MEDS: QUEtiapine FUMARATE 50 MG TABLET PO SCH (22:14)
[2020-09-22] MEDS: PRAMIPEXOLE DIHYDROCHLORIDE 0.5 MG TABLET PO SCH (22:14)
[2020-09-22] MEDS: CARVEDILOL 3.125 MG TABLET (FP) PO SCH (22:21)
[2020-09-23] MEDS: PRAMIPEXOLE DIHYDROCHLORIDE 0.25 MG TABLET PO SCH ×2 (06:29→12:59)
[2020-09-23] MEDS: INSULIN SLIDING SCALE (NOVOLOG) 1 VIAL SQ SCH ×4 (06:41→22:40)
[2020-09-23] MEDS: CARBIDOPA/LEVODOPA 25/250 TABLET (FP) PO SCH ×4 (06:42→17:44)
[2020-09-23] MEDS ORDERED: DEXTROSE 5%-WATER - 50 ML IVPB ONE (09:04)
[2020-09-23] MEDS ORDERED: cefTRIAXone SODIUM 1 GM VIAL ONE (09:04)
[2020-09-23] MEDS: PANTOPRAZOLE 40 MG TABLET PO SCH (10:43)
[2020-09-23] MEDS: CHOLECALCIFEROL (VIT D3) 1,000 UNIT (25 MCG) TABLET PO SCH (10:43)
[2020-09-23] MEDS: FUROSEMIDE 40 MG TABLET (FP) PO SCH (10:43)
[2020-09-23] MEDS: CITALOPRAM HYDROBROMIDE 20 MG TABLET PO SCH (10:43)
[2020-09-23] MEDS: CEFTRIAXONE 1 GM in DEXTROSE 5%-WATER - 50 ML IVPB SCH (10:44)
[2020-09-23] MEDS: ASCORBIC ACID 500 MG TABLET (FP) PO SCH (10:44)
[2020-09-23] MEDS: ZINC SULFATE 220 MG CAPSULE (FP) PO SCH (10:44)
[2020-09-23] MEDS: ENOXAPARIN NA (PORCINE) 40 MG/0.4 ML DISP.SYRIN SQ SCH (10:45)
[2020-09-23] MEDS: AMOX TR/POT CLAV 875MG/125MG TABLETS (FP) PO SCH (17:44)
[2020-09-23] MEDS: PRAMIPEXOLE DIHYDROCHLORIDE 0.5 MG TABLET PO SCH (22:22)
[2020-09-23] MEDS: ATORVASTATIN CA 20 MG TABLET (FP) PO SCH (22:22)
[2020-09-23] MEDS: CARVEDILOL 3.125 MG TABLET (FP) PO SCH (22:22)
[2020-09-23] MEDS: QUEtiapine FUMARATE 50 MG TABLET PO SCH (22:22)
[2020-09-24] MEDS: CARBIDOPA/LEVODOPA 25/250 TABLET (FP) PO SCH ×4 (06:35→17:11)
[2020-09-24] MEDS: PRAMIPEXOLE DIHYDROCHLORIDE 0.25 MG TABLET PO SCH ×2 (06:35→13:17)
[2020-09-24] MEDS: INSULIN SLIDING SCALE (NOVOLOG) 1 VIAL SQ SCH ×4 (06:35→22:55)
[2020-09-24] MEDS: ENOXAPARIN NA (PORCINE) 40 MG/0.4 ML DISP.SYRIN SQ SCH (09:10)
[2020-09-24] MEDS: PANTOPRAZOLE 40 MG TABLET PO SCH (09:11)
[2020-09-24] MEDS: CITALOPRAM HYDROBROMIDE 20 MG TABLET PO SCH (09:12)
[2020-09-24] MEDS: FUROSEMIDE 40 MG TABLET (FP) PO SCH (09:12)
[2020-09-24] MEDS: AMOX TR/POT CLAV 875MG/125MG TABLETS (FP) PO SCH (09:12)
[2020-09-24] MEDS: CHOLECALCIFEROL (VIT D3) 1,000 UNIT (25 MCG) TABLET PO SCH (09:15)
[2020-09-24] MEDS ORDERED: AMPICILLIN NA/SULBACTAM NA 1.5 GM VIAL ONE ×3 (12:44→21:34)
[2020-09-24] MEDS ORDERED: SODIUM CHLORIDE 100 ML IVPB ONE ×3 (12:45→21:34)
[2020-09-24] MEDS: LACTOBACILLUS ACIDOPHILUS 1 TABLET PO SCH (12:49)
[2020-09-24] MEDS: AMPICILLIN NA/SULBACTAM NA 1.5 GM in SODIUM CHLORIDE 100 ML IVPB SCH ×3 (12:50→22:45)
[2020-09-24] MEDS: ATORVASTATIN CA 20 MG TABLET (FP) PO SCH (22:44)
[2020-09-24] MEDS: CARVEDILOL 3.125 MG TABLET (FP) PO SCH (22:44)
[2020-09-24] MEDS: QUEtiapine FUMARATE 50 MG TABLET PO SCH (22:44)
[2020-09-24] MEDS: PRAMIPEXOLE DIHYDROCHLORIDE 0.5 MG TABLET PO SCH (22:44)
[2020-09-25] MEDS ORDERED: AMPICILLIN NA/SULBACTAM NA 1.5 GM VIAL ONE ×3 (03:41→21:44)
[2020-09-25] MEDS ORDERED: SODIUM CHLORIDE 100 ML IVPB ONE ×3 (03:42→21:44)
[2020-09-25] MEDS: AMPICILLIN NA/SULBACTAM NA 1.5 GM in SODIUM CHLORIDE 100 ML IVPB SCH ×4 (03:54→21:56)
[2020-09-25] MEDS: INSULIN SLIDING SCALE (NOVOLOG) 1 VIAL SQ SCH ×4 (06:36→21:56)
[2020-09-25] MEDS: PRAMIPEXOLE DIHYDROCHLORIDE 0.25 MG TABLET PO SCH ×2 (06:36→14:12)
[2020-09-25] MEDS: CARBIDOPA/LEVODOPA 25/250 TABLET (FP) PO SCH ×4 (06:36→17:06)
[2020-09-25] MEDS: PANTOPRAZOLE 40 MG TABLET PO SCH (09:24)
[2020-09-25] MEDS: CITALOPRAM HYDROBROMIDE 20 MG TABLET PO SCH (09:25)
[2020-09-25] MEDS: CHOLECALCIFEROL (VIT D3) 1,000 UNIT (25 MCG) TABLET PO SCH (09:25)
[2020-09-25] MEDS: FUROSEMIDE 40 MG TABLET (FP) PO SCH (09:25)
[2020-09-25] MEDS: LACTOBACILLUS ACIDOPHILUS 1 TABLET PO SCH (09:25)
[2020-09-25 10:39] LABS: BASO % 1.6 % (0-2.0); EOS % 3.9 % (0-4.5); HEMATOCRIT 37.7 % (35.4-49); HEMOGLOBIN 12.2 GM/dL (11.7-16.9); LYMPH % 19.1 % (8-40); MCH 25.4 pg (25.7-33.7); MCHC 32.4 g/dl (32.0-35.9); MEAN CELL VOLUME 78.2 fl (80-96); MEAN PLT VOLUME 10.7 fl (7.5-11.1); MONO % 15.5 % (3.8-10.2); NEUT % 59.9 % (42.8-82.8); PLATELET COUNT 201 K/MM3 (134-434); RBC 4.82 M/mm3 (4.00-5.60); RDW 15.8 % (11.9-15.9); WHITE BLOOD COUNT 6.6 K/mm3 (4.0-10.0)
[2020-09-25 11:11] LABS: POTASSIUM 4.1 mmol/L (3.5-5.1)
[2020-09-25 11:14] LABS: BLOOD UREA NITROGEN 26.6 mg/dL (7-18); CALCIUM 8.8 mg/dL (8.5-10.1)
[2020-09-25 11:15] LABS: MAGNESIUM 2.1 mg/dL (1.8-2.4)
[2020-09-25 11:18] LABS: BILIRUBIN,TOTAL 0.7 mg/dL (0.2-1); TOT PROT 5.8 g/dl (6.4-8.2)
[2020-09-25] MEDS: DOCUSATE SODIUM 100 MG CAPSULE (FP) PO PRN (21:56)
[2020-09-25] MEDS: PRAMIPEXOLE DIHYDROCHLORIDE 0.5 MG TABLET PO SCH (21:56)
[2020-09-25] MEDS: CARVEDILOL 3.125 MG TABLET (FP) PO SCH (21:56)
[2020-09-25] MEDS: ATORVASTATIN CA 20 MG TABLET (FP) PO SCH (21:56)
[2020-09-25] MEDS: QUEtiapine FUMARATE 50 MG TABLET PO SCH (21:56)
[2020-09-26] MEDS ORDERED: AMPICILLIN NA/SULBACTAM NA 1.5 GM VIAL ONE ×3 (00:59→13:11)
[2020-09-26] MEDS ORDERED: SODIUM CHLORIDE 100 ML IVPB ONE ×3 (00:59→13:11)
[2020-09-26] MEDS: AMPICILLIN NA/SULBACTAM NA 1.5 GM in SODIUM CHLORIDE 100 ML IVPB SCH ×3 (02:15→14:43)
[2020-09-26] MEDS: CARBIDOPA/LEVODOPA 25/250 TABLET (FP) PO SCH ×4 (05:28→18:13)
[2020-09-26] MEDS: PRAMIPEXOLE DIHYDROCHLORIDE 0.25 MG TABLET PO SCH ×2 (05:28→13:35)
[2020-09-26] MEDS: INSULIN SLIDING SCALE (NOVOLOG) 1 VIAL SQ SCH ×4 (07:00→21:37)
[2020-09-26] MEDS: DOCUSATE SODIUM 100 MG CAPSULE (FP) PO PRN ×2 (09:20→21:21)
[2020-09-26] MEDS: CHOLECALCIFEROL (VIT D3) 1,000 UNIT (25 MCG) TABLET PO SCH (09:20)
[2020-09-26] MEDS: FUROSEMIDE 40 MG TABLET (FP) PO SCH (09:20)
[2020-09-26] MEDS: CITALOPRAM HYDROBROMIDE 20 MG TABLET PO SCH (09:20)
[2020-09-26] MEDS: LACTOBACILLUS ACIDOPHILUS 1 TABLET PO SCH (09:20)
[2020-09-26] MEDS: PANTOPRAZOLE 40 MG TABLET PO SCH (09:21)
[2020-09-26] MEDS: ENOXAPARIN NA (PORCINE) 40 MG/0.4 ML DISP.SYRIN SQ SCH (09:21)
[2020-09-26 09:27] LABS: BASO % 0.9 % (0-2.0); EOS % 3.2 % (0-4.5); HEMATOCRIT 37.3 % (35.4-49); HEMOGLOBIN 12.2 GM/dL (11.7-16.9); LYMPH % 25.1 % (8-40); MCH 25.6 pg (25.7-33.7); MCHC 32.9 g/dl (32.0-35.9); MEAN CELL VOLUME 77.8 fl (80-96); MEAN PLT VOLUME 10.9 fl (7.5-11.1); MONO % 15.3 % (3.8-10.2); NEUT % 55.5 % (42.8-82.8); PLATELET COUNT 183 K/MM3 (134-434); RBC 4.79 M/mm3 (4.00-5.60); RDW 15.9 % (11.9-15.9); WHITE BLOOD COUNT 6.2 K/mm3 (4.0-10.0)
[2020-09-26 09:52] LABS: POTASSIUM 4.5 mmol/L (3.5-5.1)
[2020-09-26 10:22] LABS: CALCIUM 8.9 mg/dL (8.5-10.1)
[2020-09-26 10:23] LABS: BLOOD UREA NITROGEN 23.4 mg/dL (7-18); MAGNESIUM 2.1 mg/dL (1.8-2.4)
[2020-09-26 10:26] LABS: CREATININE 0.9 mg/dL (0.55-1.3)
[2020-09-26 10:28] LABS: BILIRUBIN,TOTAL 0.8 mg/dL (0.2-1)
[2020-09-26] MEDS ORDERED: INSULIN (NOVOLOG) ASPART 100 UNITS/ML 10ML VIAL ONE (21:13)
[2020-09-26] MEDS: QUEtiapine FUMARATE 50 MG TABLET PO SCH (21:21)
[2020-09-26] MEDS: CARVEDILOL 3.125 MG TABLET (FP) PO SCH (21:21)
[2020-09-26] MEDS: PRAMIPEXOLE DIHYDROCHLORIDE 0.5 MG TABLET PO SCH (21:21)
[2020-09-26] MEDS: ATORVASTATIN CA 20 MG TABLET (FP) PO SCH (21:21)
[2020-09-27] MEDS: PRAMIPEXOLE DIHYDROCHLORIDE 0.25 MG TABLET PO SCH ×2 (06:19→15:00)
[2020-09-27] MEDS: CARBIDOPA/LEVODOPA 25/250 TABLET (FP) PO SCH ×3 (06:19→15:00)
[2020-09-27] MEDS: INSULIN SLIDING SCALE (NOVOLOG) 1 VIAL SQ SCH ×2 (08:16→12:15)
[2020-09-27] MEDS: LACTOBACILLUS ACIDOPHILUS 1 TABLET PO SCH (12:15)
[2020-09-27] MEDS: FUROSEMIDE 40 MG TABLET (FP) PO SCH (12:16)
[2020-09-27] MEDS: CITALOPRAM HYDROBROMIDE 20 MG TABLET PO SCH (12:16)
[2020-09-27] MEDS: ENOXAPARIN NA (PORCINE) 40 MG/0.4 ML DISP.SYRIN SQ SCH (12:16)
[2020-09-27] MEDS: PANTOPRAZOLE 40 MG TABLET PO SCH (12:17)
[2020-09-27] MEDS: CHOLECALCIFEROL (VIT D3) 1,000 UNIT (25 MCG) TABLET PO SCH (12:17)
[2020-09-27 15:23] VITALS: BP 120/68; PULSE 80; TEMP 98.2
== END 2020-09-27 14:26 | disposition home or self-care (01) | DRG 178 ==
LOC: JER 20:25 → JERBED 09-21 00:26 → OBSVTOIN 09-21 03:23 → J4W 09-21 10:08
PROVIDERS: ADMIT Internal Medicine; ATTEND Nurse Practitioner Family
PROC: XW033H6 Introduction of Other New Technology Monoclonal Antibody into Peripheral Vein, Percutaneous Approach, New Technology Group 6 (ICD-10-PCS; principal; 2020-09-22)
DX: U07.1 COVID-19 (principal); N39.0 Urinary tract infection, site not specified; Z16.12 Extended spectrum beta lactamase (ESBL) resistance; B96.4 Proteus (mirabilis) (morganii) as the cause of diseases classified elsewhere; E11.65 Type 2 diabetes mellitus with hyperglycemia; I10 Essential (primary) hypertension; G20 Parkinson's disease; R42 Dizziness and giddiness; E78.5 Hyperlipidemia, unspecified; I25.10 Atherosclerotic heart disease of native coronary artery without angina pectoris; R32 Unspecified urinary incontinence; Z87.891 Personal history of nicotine dependence; Z91.81 History of falling
CPT/HCPCS: 36415; 70450-TC; 71045-TC-FY; 80053; 81003; 82248; 82550; 82728; 82803; 82962; 83605; 83615; 83735; 84100; 84484; 85025; 85379; 85610; 85730; 86140; 87086; 87186; 87804; 93005; 93010; 97116-GP; 99285-25; C9803; G0378; M0239; Q0239; U0003

== ENCOUNTER 2021-04-22 16:14 | Inpatient (IN) | payer OTHER, MEDICARE ==
[2021-04-22 17:53] LABS: EOS % 2.2 % (0-4.5); HEMATOCRIT 37.2 % (35.4-49); HEMOGLOBIN 12.2 GM/dL (11.7-16.9); LYMPH % 17.9 % (8-40); MCH 25.6 pg (25.7-33.7); MCHC 32.7 g/dl (32.0-35.9); MEAN CELL VOLUME 78.1 fl (80-96); MEAN PLT VOLUME 10.6 fl (7.5-11.1); MONO % 10.8 % (3.8-10.2); NEUT % 68.1 % (42.8-82.8); PLATELET COUNT 165 10^3/uL (134-434); RBC 4.76 M/mm3 (4.00-5.60); RDW 17.6 % (11.9-15.9); WHITE BLOOD COUNT 9.4 K/mm3 (4.0-10.0)
[2021-04-22 18:29] LABS: CALCIUM 9.1 mg/dL (8.5-10.1)
[2021-04-22 18:30] LABS: ALBUMIN 3.4 g/dl (3.4-5.0); BLOOD UREA NITROGEN 38.3 mg/dL (7-18)
[2021-04-22 18:33] LABS: CREATININE 1.6 mg/dL (0.55-1.3)
[2021-04-22 18:34] LABS: BILIRUBIN,TOTAL 0.6 mg/dL (0.2-1); TOT PROT 6.7 g/dl (6.4-8.2)
[2021-04-22 19:14] LABS: EPI CELLS 3 /uL (0-25.1); HYALINE CASTS 0 /uL (0-3.1); PH,URINE 5.5 (5.0-8.0); URINE APPEARANCE CLEAR; URINE BACTERIA 8 /uL (0-1359); URINE BILIRUBIN NEGATIVE (NEGATIVE); URINE COLOR YELLOW; URINE GLUCOSE (UA) NEGATIVE (NEGATIVE); URINE KETONE NEGATIVE (NEGATIVE); URINE LEUK ESTERASE NEGATIVE (NEGATIVE); URINE NITRITE NEGATIVE (NEGATIVE); URINE PROTEIN 1+ (NEGATIVE); URINE RBC 2 /uL (0-23.9); URINE WBC 7 /uL (0-25.8)
[2021-04-22] MEDS ORDERED: SENNOSIDES 8.6MG TABLET (FP) PO PRN (21:58)
[2021-04-23 02:12] VITALS: BMI 25.4
[2021-04-23] MEDS: CARVEDILOL 3.125 MG TABLET (FP) PO SCH ×2 (03:10→22:10)
[2021-04-23] MEDS: CARBIDOPA/LEVODOPA 25/250 TABLET (FP) PO SCH ×4 (06:38→17:33)
[2021-04-23] MEDS: PRAMIPEXOLE DIHYDROCHLORIDE 0.25 MG TABLET PO SCH ×2 (06:38→14:03)
[2021-04-23 08:41] LABS: EOS % 2.1 % (0-4.5); HEMATOCRIT 36.7 % (35.4-49); HEMOGLOBIN 12.1 GM/dL (11.7-16.9); LYMPH % 20.5 % (8-40); MCH 25.7 pg (25.7-33.7); MEAN PLT VOLUME 11.2 fl (7.5-11.1); MONO % 10.6 % (3.8-10.2); NEUT % 65.8 % (42.8-82.8); PLATELET COUNT 157 10^3/uL (134-434); RBC 4.71 M/mm3 (4.00-5.60); RDW 17.5 % (11.9-15.9); WHITE BLOOD COUNT 8.2 K/mm3 (4.0-10.0)
[2021-04-23 09:03] LABS: CREATININE 1.3 mg/dL (0.55-1.3)
[2021-04-23] MEDS ORDERED: PATIENT'S OWN MEDICATION (NON-FORMULARY) (Mirabegron [Myrbetriq] 50 MG Tab.Er.24h) PO SCH (10:00)
[2021-04-23] MEDS: CITALOPRAM HYDROBROMIDE 10 MG TABLET PO SCH (10:11)
[2021-04-23] MEDS: PANTOPRAZOLE 40 MG TABLET PO SCH (10:11)
[2021-04-23] MEDS: POLYETHYLENE GLYCOL (HEALTHYLAX) 3350 17 GM PACKET PO SCH (10:11)
[2021-04-23] MEDS: CHOLECALCIFEROL (VIT D3) 1,000 UNIT (25 MCG) TABLET PO SCH (10:12)
[2021-04-23] MEDS: INSULIN SLIDING SCALE (NOVOLOG) 1 VIAL SQ SCH ×3 (11:06→22:22)
[2021-04-23] MEDS ORDERED: PT OWN MED DRAWER 7, Y5N ONE (17:03)
[2021-04-23] MEDS ORDERED: INSULIN (NOVOLOG) ASPART 100 UNITS/ML 10ML VIAL ONE (17:59)
[2021-04-23 19:17] LABS: EPI CELLS 3 /uL (0-25.1); HYALINE CASTS 0 /uL (0-3.1); URINE APPEARANCE CLEAR; URINE BACTERIA 10 /uL (0-1359); URINE BILIRUBIN NEGATIVE (NEGATIVE); URINE COLOR YELLOW; URINE GLUCOSE (UA) NEGATIVE (NEGATIVE); URINE KETONE NEGATIVE (NEGATIVE); URINE LEUK ESTERASE NEGATIVE (NEGATIVE); URINE NITRITE NEGATIVE (NEGATIVE); URINE PROTEIN 2+ (NEGATIVE); URINE RBC 8 /uL (0-23.9); URINE WBC 6 /uL (0-25.8)
[2021-04-23] MEDS: PRAMIPEXOLE DIHYDROCHLORIDE 0.5 MG TABLET PO SCH (21:15)
[2021-04-23] MEDS: ATORVASTATIN CA 20 MG TABLET (FP) PO SCH (22:10)
[2021-04-23] MEDS: QUEtiapine FUMARATE 100 MG TABLET (FP) PO SCH (22:10)
[2021-04-24] MEDS: CARBIDOPA/LEVODOPA 25/250 TABLET (FP) PO SCH ×4 (06:08→17:42)
[2021-04-24] MEDS: INSULIN SLIDING SCALE (NOVOLOG) 1 VIAL SQ SCH ×4 (06:12→21:53)
[2021-04-24] MEDS ORDERED: PT OWN MED DRAWER 7, Y5N ONE ×3 (10:03→17:46)
[2021-04-24] MEDS: CHOLECALCIFEROL (VIT D3) 1,000 UNIT (25 MCG) TABLET PO SCH (10:05)
[2021-04-24] MEDS: POLYETHYLENE GLYCOL (HEALTHYLAX) 3350 17 GM PACKET PO SCH (10:05)
[2021-04-24] MEDS: CITALOPRAM HYDROBROMIDE 10 MG TABLET PO SCH (10:05)
[2021-04-24] MEDS: PANTOPRAZOLE 40 MG TABLET PO SCH (10:05)
[2021-04-24] MEDS ORDERED: INSULIN (NOVOLOG) ASPART 100 UNITS/ML 10ML VIAL ONE (17:10)
[2021-04-24] MEDS: QUEtiapine FUMARATE 100 MG TABLET (FP) PO SCH (21:46)
[2021-04-24] MEDS: ATORVASTATIN CA 20 MG TABLET (FP) PO SCH (21:46)
[2021-04-24] MEDS: CARVEDILOL 3.125 MG TABLET (FP) PO SCH (21:47)
[2021-04-24] MEDS: PRAMIPEXOLE DIHYDROCHLORIDE 0.5 MG TABLET PO SCH (21:54)
[2021-04-24] MEDS ORDERED: CARVEDILOL 3.125 MG TABLET (FP) PO SCH (22:00)
[2021-04-25] MEDS: INSULIN (LEVEMIR) 100 UNITS/ML UNITS SQ SCH (06:40)
[2021-04-25] MEDS: INSULIN SLIDING SCALE (NOVOLOG) 1 VIAL SQ SCH ×4 (06:41→22:26)
[2021-04-25] MEDS: CARBIDOPA/LEVODOPA 25/250 TABLET (FP) PO SCH ×4 (06:42→18:10)
[2021-04-25] MEDS ORDERED: PT OWN MED DRAWER 7, Y5N ONE ×5 (09:48→23:35)
[2021-04-25] MEDS: CITALOPRAM HYDROBROMIDE 10 MG TABLET PO SCH (09:51)
[2021-04-25] MEDS: PANTOPRAZOLE 40 MG TABLET PO SCH (09:51)
[2021-04-25] MEDS: CARVEDILOL 3.125 MG TABLET (FP) PO SCH ×2 (09:51→22:23)
[2021-04-25] MEDS: CHOLECALCIFEROL (VIT D3) 1,000 UNIT (25 MCG) TABLET PO SCH (09:51)
[2021-04-25] MEDS: POLYETHYLENE GLYCOL (HEALTHYLAX) 3350 17 GM PACKET PO SCH (09:51)
[2021-04-25 10:52] LABS: BLOOD UREA NITROGEN 35.1 mg/dL (7-18)
[2021-04-25 10:55] LABS: CREATININE 1.3 mg/dL (0.55-1.3)
[2021-04-25 10:56] LABS: BILIRUBIN,TOTAL 0.9 mg/dL (0.2-1); TOT PROT 6.2 g/dl (6.4-8.2)
[2021-04-25] MEDS: ASPIRIN 81 MG CHEWABLE TABLETS PO SCH (14:01)
[2021-04-25] MEDS: ATORVASTATIN CA 20 MG TABLET (FP) PO SCH (22:23)
[2021-04-25] MEDS: QUEtiapine FUMARATE 100 MG TABLET (FP) PO SCH (22:23)
[2021-04-25] MEDS: PRAMIPEXOLE DIHYDROCHLORIDE 0.5 MG TABLET PO SCH (22:29)
[2021-04-26] MEDS: CARBIDOPA/LEVODOPA 25/250 TABLET (FP) PO SCH ×4 (05:57→17:55)
[2021-04-26] MEDS: INSULIN (LEVEMIR) 100 UNITS/ML UNITS SQ SCH (06:03)
[2021-04-26] MEDS: INSULIN SLIDING SCALE (NOVOLOG) 1 VIAL SQ SCH ×4 (06:03→22:11)
[2021-04-26] MEDS ORDERED: ALLOPURINOL 300 MG TABLET (FP) PO SCH (10:00)
[2021-04-26] MEDS: ASPIRIN 81 MG CHEWABLE TABLETS PO SCH (11:13)
[2021-04-26] MEDS: POLYETHYLENE GLYCOL (HEALTHYLAX) 3350 17 GM PACKET PO SCH (11:14)
[2021-04-26] MEDS: CHOLECALCIFEROL (VIT D3) 1,000 UNIT (25 MCG) TABLET PO SCH (11:14)
[2021-04-26] MEDS: CITALOPRAM HYDROBROMIDE 10 MG TABLET PO SCH (11:14)
[2021-04-26] MEDS: PANTOPRAZOLE 40 MG TABLET PO SCH (11:14)
[2021-04-26] MEDS: CARVEDILOL 3.125 MG TABLET (FP) PO SCH ×2 (11:15→22:11)
[2021-04-26] MEDS ORDERED: PT OWN MED DRAWER 7, Y5N ONE (19:21)
[2021-04-26] MEDS: QUEtiapine FUMARATE 100 MG TABLET (FP) PO SCH (22:11)
[2021-04-26] MEDS: ATORVASTATIN CA 20 MG TABLET (FP) PO SCH (22:11)
[2021-04-26] MEDS: PRAMIPEXOLE DIHYDROCHLORIDE 0.5 MG TABLET PO SCH (22:21)
[2021-04-27 01:15] VITALS: BP 113/54; PULSE 64; TEMP 98.3
== END 2021-04-26 23:40 | DRG 57 ==
LOC: JER 16:14 → JERBED 17:29 → J8W 04-23 00:40
PROVIDERS: ADMIT Internal Medicine; ATTEND Family Medicine
DX: G20 Parkinson's disease (principal); I50.32 Chronic diastolic (congestive) heart failure; I13.0 Hypertensive heart and chronic kidney disease with heart failure and stage 1 through stage 4 chronic kidney disease, or unspecified chronic kidney disease; N17.9 Acute kidney failure, unspecified; I45.2 Bifascicular block; J44.9 Chronic obstructive pulmonary disease, unspecified; I25.10 Atherosclerotic heart disease of native coronary artery without angina pectoris; Z86.16 Personal history of COVID-19; Z95.0 Presence of cardiac pacemaker; G25.81 Restless legs syndrome; E11.22 Type 2 diabetes mellitus with diabetic chronic kidney disease; E78.5 Hyperlipidemia, unspecified; N18.9 Chronic kidney disease, unspecified; E66.3 Overweight; Z68.25 Body mass index [BMI] 25.0-25.9, adult; R26.2 Difficulty in walking, not elsewhere classified
CPT/HCPCS: 36415; 70450-TC; 71045-TC-FY; 72125-TC; 72128-TC; 72131-TC; 73523-TC-FY; 80048; 80053; 80061; 81003; 82550; 82570; 82728; 82962; 83036; 83540; 83550; 84156; 84439; 84443; 84484; 85025; 87086; 93005; 93010; 97116-GP; 97162-GP; 99285-25; C9803; U0003; U0005

== ENCOUNTER 2021-05-21 11:51 | Inpatient (IN) | payer OTHER, MEDICARE ==
[2021-05-21 12:38] VITALS: BMI 24.1
[2021-05-21 13:56] LABS: BASO % 0.8 % (0-2.0); EOS % 1.8 % (0-4.5); HEMATOCRIT 38.1 % (35.4-49); HEMOGLOBIN 12.3 GM/dL (11.7-16.9); LYMPH % 14.7 % (8-40); MCHC 32.4 g/dl (32.0-35.9); MEAN CELL VOLUME 80.2 fl (80-96); MEAN PLT VOLUME 11.5 fl (7.5-11.1); NEUT % 75.7 % (42.8-82.8); PLATELET COUNT 118 10^3/uL (134-434); RBC 4.75 M/mm3 (4.00-5.60); RDW 19.8 % (11.9-15.9)
[2021-05-21 14:21] LABS: ALBUMIN 3.4 g/dl (3.4-5.0); BLOOD UREA NITROGEN 29.1 mg/dL (7-18); CALCIUM 9.5 mg/dL (8.5-10.1)
[2021-05-21 14:25] LABS: CREATININE 1.5 mg/dL (0.55-1.3)
[2021-05-21 14:26] LABS: BILIRUBIN,TOTAL 1.2 mg/dL (0.2-1); TOT PROT 6.9 g/dl (6.4-8.2)
[2021-05-21] MEDS ORDERED: SODIUM CHLORIDE 0.9% 500 ML INFUS.BAG IV ONE (16:05)
[2021-05-21] MEDS ORDERED: SENNOSIDES 8.6MG TABLET (FP) PO PRN (17:48)
[2021-05-21] MEDS ORDERED: CARBIDOPA/LEVODOPA 25/250 TABLET (FP) ONE (18:34)
[2021-05-21] MEDS: CARBIDOPA/LEVODOPA 25/250 TABLET (FP) PO SCH (18:36)
[2021-05-21] MEDS ORDERED: QUEtiapine FUMARATE 25 MG TABLET ONE (21:53)
[2021-05-21] MEDS ORDERED: PT OWN MED DRAWER 7, Y5N ONE (21:53)
[2021-05-21] MEDS: QUEtiapine FUMARATE 50 MG TABLET PO SCH (21:55)
[2021-05-21] MEDS: HEPARIN NA (PORCINE) 5,000 UNITS/ML 1ML VIAL SQ SCH (21:55)
[2021-05-21] MEDS: CARVEDILOL 3.125 MG TABLET (FP) PO SCH (21:55)
[2021-05-21] MEDS: PRAMIPEXOLE DIHYDROCHLORIDE 0.5 MG TABLET PO SCH (22:16)
[2021-05-21] MEDS: D5-1/2NS+20 MEQ KCL - 20 MEQ/1,000 ML INFUS.BAG IV SCH (22:34)
[2021-05-22] MEDS: CARBIDOPA/LEVODOPA 25/250 TABLET (FP) PO SCH ×4 (05:38→17:34)
[2021-05-22] MEDS: ACETAMINOPHEN 325 MG TABLET (FP) PO PRN ×3 (05:38→21:49)
[2021-05-22 07:23] LABS: BASO % 0.6 % (0-2.0); EOS % 1.7 % (0-4.5); HEMATOCRIT 32.9 % (35.4-49); HEMOGLOBIN 10.6 GM/dL (11.7-16.9); LYMPH % 11.1 % (8-40); MCH 25.7 pg (25.7-33.7); MCHC 32.1 g/dl (32.0-35.9); MEAN CELL VOLUME 80.2 fl (80-96); MEAN PLT VOLUME 11.8 fl (7.5-11.1); MONO % 9.9 % (3.8-10.2); NEUT % 76.7 % (42.8-82.8); PLATELET COUNT 126 10^3/uL (134-434); RBC 4.11 M/mm3 (4.00-5.60); RDW 19.7 % (11.9-15.9); WHITE BLOOD COUNT 8.5 K/mm3 (4.0-10.0)
[2021-05-22 08:07] LABS: CALCIUM 8.1 mg/dL (8.5-10.1); MAGNESIUM 1.9 mg/dL (1.8-2.4)
[2021-05-22 08:08] LABS: BLOOD UREA NITROGEN 26.5 mg/dL (7-18)
[2021-05-22 08:11] LABS: CREATININE 1.3 mg/dL (0.55-1.3)
[2021-05-22 08:12] LABS: BILIRUBIN,TOTAL 1.4 mg/dL (0.2-1)
[2021-05-22] MEDS: CITALOPRAM HYDROBROMIDE 10 MG TABLET PO SCH (09:39)
[2021-05-22] MEDS: ASPIRIN 81 MG CHEWABLE TABLETS PO SCH (09:39)
[2021-05-22] MEDS: HEPARIN NA (PORCINE) 5,000 UNITS/ML 1ML VIAL SQ SCH ×2 (09:40→21:46)
[2021-05-22] MEDS: PANTOPRAZOLE 40 MG TABLET PO SCH (09:40)
[2021-05-22] MEDS: CARVEDILOL 3.125 MG TABLET (FP) PO SCH ×2 (09:40→21:47)
[2021-05-22] MEDS: ALLOPURINOL 300 MG TABLET (FP) PO SCH (09:40)
[2021-05-22] MEDS: ATORVASTATIN CA 20 MG TABLET (FP) PO SCH (09:40)
[2021-05-22] MEDS: POLYETHYLENE GLYCOL (HEALTHYLAX) 3350 17 GM PACKET PO SCH (09:50)
[2021-05-22] MEDS ORDERED: POLYETHYLENE GLYCOL 3350 119 GM BTL PO SCH (10:00)
[2021-05-22 10:51] LABS: EPI CELLS 12 /uL (0-25.1); HYALINE CASTS 1 /uL (0-3.1); PH,URINE 5.5 (5.0-8.0); URINE APPEARANCE CLEAR; URINE BACTERIA 7 /uL (0-1359); URINE BILIRUBIN NEGATIVE (NEGATIVE); URINE COLOR YELLOW; URINE GLUCOSE (UA) 2+ (NEGATIVE); URINE KETONE TRACE (NEGATIVE); URINE LEUK ESTERASE NEGATIVE (NEGATIVE); URINE NITRITE NEGATIVE (NEGATIVE); URINE PROTEIN 1+ (NEGATIVE); URINE RBC 20 /uL (0-23.9); URINE WBC 9 /uL (0-25.8)
[2021-05-22] MEDS: INSULIN SLIDING SCALE (NOVOLOG) 1 VIAL SQ SCH ×3 (11:55→21:48)
[2021-05-22] MEDS ORDERED: PT OWN MED DRAWER 7, Y5N ONE ×4 (16:27→21:35)
[2021-05-22 20:51] LABS: EPI CELLS 12 /uL (0-25.1); HYALINE CASTS 4 /uL (0-3.1); PH,URINE 5.5 (5.0-8.0); URINE APPEARANCE CLEAR; URINE BACTERIA 68 /uL (0-1359); URINE BILIRUBIN NEGATIVE (NEGATIVE); URINE COLOR YELLOW; URINE GLUCOSE (UA) 2+ (NEGATIVE); URINE KETONE TRACE (NEGATIVE); URINE LEUK ESTERASE TRACE (NEGATIVE); URINE NITRITE NEGATIVE (NEGATIVE); URINE PROTEIN 1+ (NEGATIVE); URINE RBC 138 /uL (0-23.9); URINE WBC 24 /uL (0-25.8)
[2021-05-22] MEDS ORDERED: QUEtiapine FUMARATE 25 MG TABLET ONE (21:34)
[2021-05-22] MEDS: D5-1/2NS+20 MEQ KCL - 20 MEQ/1,000 ML INFUS.BAG IV SCH (21:46)
[2021-05-22] MEDS: QUEtiapine FUMARATE 50 MG TABLET PO SCH (21:48)
[2021-05-22] MEDS: PRAMIPEXOLE DIHYDROCHLORIDE 0.5 MG TABLET PO SCH (21:48)
[2021-05-23] MEDS ORDERED: PT OWN MED DRAWER 7, Y5N ONE ×2 (06:41→18:50)
[2021-05-23] MEDS: INSULIN SLIDING SCALE (NOVOLOG) 1 VIAL SQ SCH ×4 (06:44→21:13)
[2021-05-23] MEDS: CARBIDOPA/LEVODOPA 25/250 TABLET (FP) PO SCH ×4 (06:45→17:04)
[2021-05-23] MEDS: CARVEDILOL 3.125 MG TABLET (FP) PO SCH (09:15)
[2021-05-23] MEDS: ATORVASTATIN CA 20 MG TABLET (FP) PO SCH (09:15)
[2021-05-23] MEDS: POLYETHYLENE GLYCOL (HEALTHYLAX) 3350 17 GM PACKET PO SCH (09:15)
[2021-05-23] MEDS: CITALOPRAM HYDROBROMIDE 10 MG TABLET PO SCH (09:15)
[2021-05-23] MEDS: PANTOPRAZOLE 40 MG TABLET PO SCH (09:15)
[2021-05-23] MEDS: ASPIRIN 81 MG CHEWABLE TABLETS PO SCH (09:15)
[2021-05-23] MEDS: HEPARIN NA (PORCINE) 5,000 UNITS/ML 1ML VIAL SQ SCH ×2 (09:15→21:12)
[2021-05-23] MEDS: ALLOPURINOL 300 MG TABLET (FP) PO SCH (09:15)
[2021-05-23] MEDS: ACETAMINOPHEN 325 MG TABLET (FP) PO PRN ×2 (11:56→17:58)
[2021-05-23 13:29] LABS: EOS % 5.1 % (0-4.5); HEMOGLOBIN 9.7 GM/dL (11.7-16.9); LYMPH % 14.5 % (8-40); MCH 25.6 pg (25.7-33.7); MCHC 32.3 g/dl (32.0-35.9); MEAN CELL VOLUME 79.1 fl (80-96); MEAN PLT VOLUME 11.6 fl (7.5-11.1); MONO % 9.1 % (3.8-10.2); NEUT % 70.3 % (42.8-82.8); PLATELET COUNT 105 10^3/uL (134-434); RBC 3.79 M/mm3 (4.00-5.60); RDW 19.9 % (11.9-15.9); WHITE BLOOD COUNT 7.2 K/mm3 (4.0-10.0)
[2021-05-23 14:03] LABS: CALCIUM 8.4 mg/dL (8.5-10.1)
[2021-05-23 14:04] LABS: ALBUMIN 2.8 g/dl (3.4-5.0); BLOOD UREA NITROGEN 27.5 mg/dL (7-18)
[2021-05-23 14:07] LABS: CREATININE 1.5 mg/dL (0.55-1.3)
[2021-05-23 14:09] LABS: TOT PROT 5.8 g/dl (6.4-8.2)
[2021-05-23 14:10] LABS: BILIRUBIN,TOTAL 1.3 mg/dL (0.2-1)
[2021-05-23] MEDS: QUEtiapine FUMARATE 100 MG TABLET (FP) PO SCH (21:12)
[2021-05-24] MEDS: INSULIN SLIDING SCALE (NOVOLOG) 1 VIAL SQ SCH ×4 (06:35→22:01)
[2021-05-24] MEDS: PATIENT'S OWN MEDICATION (NON-FORMULARY) (Mirabegron [Myrbetriq] 50 MG Tab.Er.24h) PO SCH ×2 (07:51→07:52)
[2021-05-24 09:25] LABS: BASO % 0.9 % (0-2.0); HEMATOCRIT 29.5 % (35.4-49); HEMOGLOBIN 9.7 GM/dL (11.7-16.9); LYMPH % 26.7 % (8-40); MCH 26.2 pg (25.7-33.7); MEAN CELL VOLUME 79.3 fl (80-96); MEAN PLT VOLUME 11.8 fl (7.5-11.1); MONO % 11.8 % (3.8-10.2); NEUT % 54.6 % (42.8-82.8); PLATELET COUNT 116 10^3/uL (134-434); RBC 3.71 M/mm3 (4.00-5.60); WHITE BLOOD COUNT 6.6 K/mm3 (4.0-10.0)
[2021-05-24 09:44] LABS: CHLORIDE 105 mmol/L (98-107); SODIUM 140 mmol/L (136-145)
[2021-05-24 09:49] LABS: CALCIUM 8.2 mg/dL (8.5-10.1)
[2021-05-24 09:50] LABS: ALBUMIN 2.6 g/dl (3.4-5.0); ANION GAP 5 MMOL/L (8-16); BLOOD UREA NITROGEN 24.2 mg/dL (7-18); CO2 30 mmol/L (21-32)
[2021-05-24 09:53] LABS: CREATININE 1.3 mg/dL (0.55-1.3); SGOT/AST 15 U/L (15-37); SGPT/ALT < 6 U/L (13-61)
[2021-05-24 09:54] LABS: BILIRUBIN,TOTAL 1.1 mg/dL (0.2-1)
[2021-05-24 09:55] LABS: TOT PROT 5.7 g/dl (6.4-8.2)
[2021-05-24 09:56] LABS: ALK PHOS 91 U/L (45-117)
[2021-05-24 09:59] LABS: GLUCOSE,RANDOM 154 mg/dL (74-106)
[2021-05-24] MEDS: ATORVASTATIN CA 20 MG TABLET (FP) PO SCH ×2 (10:18→22:00)
[2021-05-24] MEDS ORDERED: PT OWN MED DRAWER 7, Y5N ONE (10:21)
[2021-05-24] MEDS: PANTOPRAZOLE 40 MG TABLET PO SCH (10:23)
[2021-05-24] MEDS: ASPIRIN 81 MG CHEWABLE TABLETS PO SCH (10:23)
[2021-05-24] MEDS: POLYETHYLENE GLYCOL (HEALTHYLAX) 3350 17 GM PACKET PO SCH (10:23)
[2021-05-24] MEDS: ALLOPURINOL 300 MG TABLET (FP) PO SCH (10:23)
[2021-05-24] MEDS: HEPARIN NA (PORCINE) 5,000 UNITS/ML 1ML VIAL SQ SCH ×2 (10:23→22:01)
[2021-05-24] MEDS: CITALOPRAM HYDROBROMIDE 10 MG TABLET PO SCH (10:23)
[2021-05-24] MEDS ORDERED: INSULIN SLIDING SCALE (NOVOLOG) 1 VIAL SQ ONE (11:15)
[2021-05-24] MEDS: ACETAMINOPHEN 325 MG TABLET (FP) PO PRN (13:52)
[2021-05-24] MEDS: QUEtiapine FUMARATE 100 MG TABLET (FP) PO SCH (22:00)
[2021-05-25] MEDS: INSULIN SLIDING SCALE (NOVOLOG) 1 VIAL SQ SCH ×4 (06:01→21:12)
[2021-05-25] MEDS: ALLOPURINOL 300 MG TABLET (FP) PO SCH (09:27)
[2021-05-25] MEDS: CITALOPRAM HYDROBROMIDE 10 MG TABLET PO SCH (09:27)
[2021-05-25] MEDS: TAMSULOSIN HCL 0.4 MG CAP PO SCH (09:27)
[2021-05-25] MEDS: HEPARIN NA (PORCINE) 5,000 UNITS/ML 1ML VIAL SQ SCH ×2 (09:28→21:10)
[2021-05-25] MEDS: ASPIRIN 81 MG CHEWABLE TABLETS PO SCH (09:28)
[2021-05-25] MEDS: PANTOPRAZOLE 40 MG TABLET PO SCH (09:28)
[2021-05-25] MEDS: POLYETHYLENE GLYCOL (HEALTHYLAX) 3350 17 GM PACKET PO SCH (09:37)
[2021-05-25] MEDS: LISINOPRIL 5 MG TABLET PO SCH (13:03)
[2021-05-25] MEDS: ATORVASTATIN CA 20 MG TABLET (FP) PO SCH (21:11)
[2021-05-25] MEDS: QUEtiapine FUMARATE 100 MG TABLET (FP) PO SCH (21:11)
[2021-05-25] MEDS: ACETAMINOPHEN 325 MG TABLET (FP) PO PRN (21:11)
[2021-05-26] MEDS: ACETAMINOPHEN 325 MG TABLET (FP) PO PRN (01:20)
[2021-05-26] MEDS ORDERED: LORazepam 2 MG/ML SDV VIAL IVPUSH ONE (02:12)
[2021-05-26] MEDS: INSULIN SLIDING SCALE (NOVOLOG) 1 VIAL SQ SCH ×2 (06:53→11:01)
[2021-05-26 07:26] LABS: CHLORIDE 103 mmol/L (98-107); SODIUM 137 mmol/L (136-145)
[2021-05-26 07:29] LABS: CALCIUM 8.3 mg/dL (8.5-10.1)
[2021-05-26 07:30] LABS: ALBUMIN 2.5 g/dl (3.4-5.0); ANION GAP 9 MMOL/L (8-16); BLOOD UREA NITROGEN 28.3 mg/dL (7-18); CO2 25 mmol/L (21-32); GLUCOSE,RANDOM 275 mg/dL (74-106)
[2021-05-26 07:33] LABS: CREATININE 1.5 mg/dL (0.55-1.3); SGOT/AST 18 U/L (15-37); SGPT/ALT < 6 U/L (13-61)
[2021-05-26 07:35] LABS: BILIRUBIN,TOTAL 1.4 mg/dL (0.2-1); TOT PROT 5.6 g/dl (6.4-8.2)
[2021-05-26 07:36] LABS: ALK PHOS 94 U/L (45-117)
[2021-05-26 07:40] LABS: HEMATOCRIT 29.1 % (35.4-49); HEMOGLOBIN 9.8 GM/dL (11.7-16.9); MCH 26.6 pg (25.7-33.7); MCHC 33.8 g/dl (32.0-35.9); MEAN CELL VOLUME 78.7 fl (80-96); MEAN PLT VOLUME 11.8 fl (7.5-11.1); PLATELET COUNT 123 10^3/uL (134-434); RDW 19.9 % (11.9-15.9); WHITE BLOOD COUNT 8.6 K/mm3 (4.0-10.0)
[2021-05-26] MEDS: TAMSULOSIN HCL 0.4 MG CAP PO SCH (08:50)
[2021-05-26] MEDS: HEPARIN NA (PORCINE) 5,000 UNITS/ML 1ML VIAL SQ SCH (10:29)
[2021-05-26] MEDS: LISINOPRIL 5 MG TABLET PO SCH ×2 (10:30→10:35)
[2021-05-26] MEDS: CITALOPRAM HYDROBROMIDE 10 MG TABLET PO SCH (10:30)
[2021-05-26] MEDS: POLYETHYLENE GLYCOL (HEALTHYLAX) 3350 17 GM PACKET PO SCH (10:30)
[2021-05-26] MEDS: ALLOPURINOL 300 MG TABLET (FP) PO SCH (10:30)
[2021-05-26] MEDS: PANTOPRAZOLE 40 MG TABLET PO SCH (10:30)
[2021-05-26] MEDS: ASPIRIN 81 MG CHEWABLE TABLETS PO SCH (10:30)
[2021-05-26 10:57] LABS: ANISOCYTOSIS 2+; MACROCYTOSIS 0; OVALOCYTE 2+; PLATELET ESTIMATE NORMAL
[2021-05-26 14:04] VITALS: BP 92/46; PULSE 89; TEMP 98.6
== END 2021-05-26 16:31 | DRG 563 ==
LOC: JER 11:51 → JERBED 16:58 → OBSVTOIN 17:50 → J4S 18:54
PROVIDERS: ADMIT Family Medicine; ATTEND Family Medicine
DX: S42.202A Unspecified fracture of upper end of left humerus, initial encounter for closed fracture (principal); I47.2 Ventricular tachycardia; I13.0 Hypertensive heart and chronic kidney disease with heart failure and stage 1 through stage 4 chronic kidney disease, or unspecified chronic kidney disease; N17.9 Acute kidney failure, unspecified; R44.3 Hallucinations, unspecified; I50.42 Chronic combined systolic (congestive) and diastolic (congestive) heart failure; R64 Cachexia; F03.91 Unspecified dementia, unspecified severity, with behavioral disturbance; I95.1 Orthostatic hypotension; G20 Parkinson's disease; E11.22 Type 2 diabetes mellitus with diabetic chronic kidney disease; I25.10 Atherosclerotic heart disease of native coronary artery without angina pectoris; E78.5 Hyperlipidemia, unspecified; R60.9 Edema, unspecified; M79.622 Pain in left upper arm; J44.9 Chronic obstructive pulmonary disease, unspecified; R33.9 Retention of urine, unspecified; Z68.24 Body mass index [BMI] 24.0-24.9, adult; Z98.61 Coronary angioplasty status; N18.9 Chronic kidney disease, unspecified; W19.XXXA Unspecified fall, initial encounter; Y93.9 Activity, unspecified; Y92.89 Other specified places as the place of occurrence of the external cause; Y99.9 Unspecified external cause status
CPT/HCPCS: 36415; 70450-TC; 71045-TC-FY; 73030-TC-LT-FY; 73060-TC-LT-FY; 80053; 80061; 81003; 82550; 82962; 83036; 83735; 84443; 84484; 85025; 87086; 93005; 93010; 97116-GP; 97161-GP; 99285-25; C9803; G0378; J1644; U0003; U0005

== ENCOUNTER 2021-10-10 19:18 | Inpatient (IN) | payer OTHER, MEDICARE ==
[2021-10-10] MEDS ORDERED: PIPERACILLIN/TAZOB 4.5 GM 4.5 GM in DEXTROSE 5%-WATER 100 ML IVPB ONE (20:36)
[2021-10-10] MEDS ORDERED: VANCOMYCIN 1 GM in D5W (PRE-DOCKED) 1,000 MG/250 ML IVPB ONE (20:36)
[2021-10-10 21:09] LABS: VENOUS O2 SATURATION 92.2 % (70-80); VENOUS PCO2 47.8 mmHg (38-52); VENOUS PH 7.321 (7.310-7.410)
[2021-10-10 21:15] LABS: HEMATOCRIT 27.5 % (35.4-49); HEMOGLOBIN 8.6 GM/dL (11.7-16.9); MCH 25.7 pg (25.7-33.7); MCHC 31.1 g/dl (32.0-35.9); MEAN CELL VOLUME 82.7 fl (80-96); MEAN PLT VOLUME 11.4 fl (7.5-11.1); PLATELET COUNT 203 10^3/uL (134-434); RBC 3.33 M/mm3 (4.00-5.60); RDW 18.5 % (11.9-15.9); WHITE BLOOD COUNT 22.3 K/mm3 (4.0-10.0)
[2021-10-10] MEDS ORDERED: PIPERACILLIN/TAZOB 4.5 GM 4.5 GM/100 ML BAG IVPB ONE (21:16)
[2021-10-10 21:26] LABS: PROTHROMBIN TIME (PATIENT) 52.5 SEC (9.7-13.0)
[2021-10-10 21:29] LABS: ACTIVATED PTT 44.6 SECONDS (25.2-36.5)
[2021-10-10 21:41] LABS: CALCIUM 7.9 mg/dL (8.5-10.1)
[2021-10-10 21:42] LABS: ALBUMIN 2.4 g/dl (3.4-5.0); BLOOD UREA NITROGEN 58.6 mg/dL (7-18)
[2021-10-10 21:44] LABS: LACTIC ACID 2.3 mmol/L (0.4-2.0)
[2021-10-10 21:45] LABS: CREATININE 2.5 mg/dL (0.55-1.3)
[2021-10-10 21:46] LABS: BILIRUBIN,TOTAL 0.9 mg/dL (0.2-1); INR 4.5 (0.83-1.09)
[2021-10-10 21:47] LABS: TOT PROT 5.7 g/dl (6.4-8.2)
[2021-10-10 21:48] LABS: EPI CELLS >36 /uL (0-25.1); HYALINE CASTS 21 /uL (0-3.1); URINE APPEARANCE TURBID; URINE BACTERIA >9,000 /uL (0-1359); URINE BILIRUBIN 2+ (NEGATIVE); URINE COLOR DK YELLOW; URINE GLUCOSE (UA) NEGATIVE (NEGATIVE); URINE KETONE TRACE (NEGATIVE); URINE LEUK ESTERASE 3+ (NEGATIVE); URINE NITRITE POSITIVE (NEGATIVE); URINE PROTEIN 3+ (NEGATIVE); URINE WBC 26515 /uL (0-25.8)
[2021-10-10] MEDS ORDERED: VANCOMYCIN 1 GRAM (PRE-DOCKED) 1,000 MG/250 ML BAG IVPB ONE (21:57)
[2021-10-10] MEDS ORDERED: LACTATED RINGERS SOLUTION 1000 ML INFUS.BAG IV ONE (22:03)
[2021-10-10 22:09] LABS: URINE RBC 1451.9 /uL (0-23.9); YEAST NONE SEEN (NEGATIVE)
[2021-10-10 22:11] LABS: N-TERMINAL BNP 41694.7 pg/ml (5-450)
[2021-10-10 22:43] LABS: ANISOCYTOSIS 1+; MACROCYTOSIS 1+; OVALOCYTE 2+; TARGET CELLS 1+; TEAR DROP CELLS 1+; TOXIC GRANULATION 2+
[2021-10-11] MEDS ORDERED: PIPERACILLIN/TAZOB 3.375 GM 3.375 GM/50 ML BAG IVPB ONE ×2 (04:11→10:48)
[2021-10-11] MEDS: PIPERACILLIN/TAZOB 3.375 GM 3.375 GM in DEXTROSE 5%-WATER - 50 ML IVPB SCH ×2 (04:13→23:17)
[2021-10-11 05:10] LABS: LACTIC ACID 2.1 mmol/L (0.4-2.0)
[2021-10-11] MEDS ORDERED: DEXTROSE 5%-WATER 100 ML IVPB ONE ×2 (14:18→23:18)
[2021-10-11] MEDS ORDERED: MEROPENEM 1 GM VIAL (RESTRICTED TO ID) IVPB ONE ×2 (14:18→23:18)
[2021-10-11] MEDS: MEROPENEM 1 GM in DEXTROSE 5%-WATER 100 ML IVPB SCH ×2 (14:24→23:31)
[2021-10-11] MEDS ORDERED: ACETAMINOPHEN 1000 MG/100 ML BAG IVPB ONE (21:36)
[2021-10-11] MEDS ORDERED: VANCOMYCIN/WATER FOR INJ (PEG) 1,000 MG/200 ML BAG IVPB SCH (22:00)
[2021-10-12] MEDS ORDERED: PIPERACILLIN/TAZOB 3.375 GM 3.375 GM in DEXTROSE 5%-WATER - 50 ML IVPB SCH (02:00)
[2021-10-12] MEDS: CARVEDILOL 3.125 MG TABLET (FP) PO SCH ×2 (09:55→21:58)
[2021-10-12] MEDS: ESCITALOPRAM OXALATE 10 MG TABLET PO SCH (09:55)
[2021-10-12] MEDS: MEROPENEM 1 GM in DEXTROSE 5%-WATER 100 ML IVPB SCH ×2 (09:56→21:58)
[2021-10-12] MEDS ORDERED: CARVEDILOL 3.125 MG TABLET (FP) PO SCH (10:00)
[2021-10-12] MEDS: CARBIDOPA/LEVODOPA 25/250 TABLET (FP) PO SCH ×3 (11:02→18:18)
[2021-10-12] MEDS: ALLOPURINOL 300 MG TABLET (FP) PO SCH (11:03)
[2021-10-12] MEDS: FUROSEMIDE 40 MG/4 ML INJECTABLE VIAL IVPUSH SCH (12:25)
[2021-10-12 12:51] LABS: HEMATOCRIT 26.4 % (35.4-49); HEMOGLOBIN 8.2 GM/dL (11.7-16.9); MCH 25.3 pg (25.7-33.7); MCHC 31.1 g/dl (32.0-35.9); MEAN CELL VOLUME 81.4 fl (80-96); MEAN PLT VOLUME 11.3 fl (7.5-11.1); PLATELET COUNT 191 10^3/uL (134-434); RBC 3.24 M/mm3 (4.00-5.60); RDW 18.5 % (11.9-15.9); WHITE BLOOD COUNT 16.5 K/mm3 (4.0-10.0)
[2021-10-12 13:02] LABS: INR 2.9 (0.83-1.09); PROTHROMBIN TIME (PATIENT) 33.7 SEC (9.7-13.0)
[2021-10-12 13:11] LABS: ALBUMIN 2.3 g/dl (3.4-5.0); BLOOD UREA NITROGEN 66.8 mg/dL (7-18)
[2021-10-12 13:14] LABS: CREATININE 2.6 mg/dL (0.55-1.3)
[2021-10-12 13:15] LABS: BILIRUBIN,TOTAL 0.8 mg/dL (0.2-1); TOT PROT 5.6 g/dl (6.4-8.2)
[2021-10-12 13:47] LABS: ANISOCYTOSIS 0; HELMET CELLS 0; HOWELL-JOLLY BODIES 0; MACROCYTOSIS 0; OVALOCYTE 0; ROULEAU 0; SICKELED CELLS 0; TARGET CELLS 0; TEAR DROP CELLS 0; TOXIC GRANULATION 0
[2021-10-12] MEDS: MIDODRINE HCL 5 MG TABLET PO SCH ×2 (14:15→18:19)
[2021-10-12] MEDS ORDERED: MEROPENEM 1 GM VIAL (RESTRICTED TO ID) IVPB ONE (21:53)
[2021-10-12] MEDS ORDERED: DEXTROSE 5%-WATER 100 ML IVPB ONE (21:53)
[2021-10-12] MEDS: ATORVASTATIN CA 20 MG TABLET (FP) PO SCH (21:58)
[2021-10-12] MEDS: QUEtiapine FUMARATE 100 MG TABLET (FP) PO SCH (21:59)
[2021-10-12] MEDS ORDERED: VANCOMYCIN/WATER FOR INJ (PEG) 1,000 MG/200 ML BAG IVPB SCH (22:00)
[2021-10-12] MEDS: POLYETHYLENE GLYCOL (HEALTHYLAX) 3350 17 GM PACKET PO SCH (22:04)
[2021-10-12] MEDS: INSULIN SLIDING SCALE (NOVOLOG) 1 VIAL SQ SCH (22:45)
[2021-10-13] MEDS: INSULIN SLIDING SCALE (NOVOLOG) 1 VIAL SQ SCH ×4 (06:18→22:20)
[2021-10-13] MEDS: CARBIDOPA/LEVODOPA 25/250 TABLET (FP) PO SCH ×4 (06:18→17:56)
[2021-10-13 08:31] LABS: ALBUMIN 2.2 g/dl (3.4-5.0)
[2021-10-13 08:32] LABS: CALCIUM 8.1 mg/dL (8.5-10.1)
[2021-10-13 08:36] LABS: CREATININE 2.7 mg/dL (0.55-1.3)
[2021-10-13 08:37] LABS: BILIRUBIN,TOTAL 0.6 mg/dL (0.2-1); TOT PROT 5.2 g/dl (6.4-8.2)
[2021-10-13 08:56] LABS: BASO % 0.2 % (0-2.0); EOS % 1.3 % (0-4.5); HEMATOCRIT 25.7 % (35.4-49); LYMPH % 9.6 % (8-40); MCH 25.4 pg (25.7-33.7); MEAN CELL VOLUME 81.9 fl (80-96); MEAN PLT VOLUME 11.6 fl (7.5-11.1); MONO % 8.6 % (3.8-10.2); NEUT % 80.3 % (42.8-82.8); PLATELET COUNT 170 10^3/uL (134-434); RBC 3.14 M/mm3 (4.00-5.60); RDW 18.5 % (11.9-15.9); WHITE BLOOD COUNT 12.3 K/mm3 (4.0-10.0)
[2021-10-13] MEDS: CARVEDILOL 3.125 MG TABLET (FP) PO SCH (09:43)
[2021-10-13] MEDS: MIDODRINE HCL 5 MG TABLET PO SCH ×3 (09:43→17:56)
[2021-10-13] MEDS: ESCITALOPRAM OXALATE 10 MG TABLET PO SCH (09:45)
[2021-10-13] MEDS: PIMAVANSERIN 34 MG PO SCH ×2 (09:54→23:03)
[2021-10-13] MEDS: ALLOPURINOL 300 MG TABLET (FP) PO SCH (09:56)
[2021-10-13] MEDS: Mirabegron [Myrbetriq] 50 MG Tab.Er.24h PO SCH ×2 (09:57→23:03)
[2021-10-13] MEDS: POLYETHYLENE GLYCOL (HEALTHYLAX) 3350 17 GM PACKET PO SCH ×2 (09:58→22:05)
[2021-10-13] MEDS: FUROSEMIDE 40 MG/4 ML INJECTABLE VIAL IVPUSH SCH (09:58)
[2021-10-13] MEDS ORDERED: MEROPENEM 1 GM in DEXTROSE 5%-WATER 100 ML IVPB SCH (10:00)
[2021-10-13] MEDS ORDERED: PIMAVANSERIN 34 MG PO SCH (10:00)
[2021-10-13] MEDS ORDERED: MEROPENEM 1 GM in DEXTROSE 5%-WATER 100 ML IVPB ONE (10:45)
[2021-10-13 11:33] VITALS: BMI 24.6
[2021-10-13] MEDS ORDERED: MEROPENEM 1 GM VIAL (RESTRICTED TO ID) IVPB ONE (11:34)
[2021-10-13] MEDS ORDERED: DEXTROSE 5%-WATER 100 ML IVPB ONE ×2 (11:35)
[2021-10-13] MEDS: CEFTRIAXONE 2 GM in DEXTROSE 5%-WATER 100 ML IVPB SCH (11:39)
[2021-10-13] MEDS: ATORVASTATIN CA 20 MG TABLET (FP) PO SCH (22:05)
[2021-10-13] MEDS: QUEtiapine FUMARATE 100 MG TABLET (FP) PO SCH (22:05)
[2021-10-14] MEDS: CARBIDOPA/LEVODOPA 25/250 TABLET (FP) PO SCH ×4 (06:36→17:09)
[2021-10-14] MEDS: INSULIN SLIDING SCALE (NOVOLOG) 1 VIAL SQ SCH ×4 (06:38→21:52)
[2021-10-14 07:08] LABS: BASO % 0.5 % (0-2.0); EOS % 3.5 % (0-4.5); HEMATOCRIT 26.1 % (35.4-49); HEMOGLOBIN 8.1 GM/dL (11.7-16.9); LYMPH % 9.5 % (8-40); MCH 25.4 pg (25.7-33.7); MCHC 31.1 g/dl (32.0-35.9); MEAN CELL VOLUME 81.7 fl (80-96); MEAN PLT VOLUME 11.6 fl (7.5-11.1); MONO % 10.6 % (3.8-10.2); NEUT % 75.9 % (42.8-82.8); PLATELET COUNT 183 10^3/uL (134-434); RBC 3.19 M/mm3 (4.00-5.60); RDW 18.5 % (11.9-15.9); WHITE BLOOD COUNT 10.5 K/mm3 (4.0-10.0)
[2021-10-14 07:24] LABS: ALBUMIN 2.2 g/dl (3.4-5.0); BLOOD UREA NITROGEN 82.3 mg/dL (7-18)
[2021-10-14 07:27] LABS: CREATININE 2.5 mg/dL (0.55-1.3)
[2021-10-14 07:29] LABS: BILIRUBIN,TOTAL 0.7 mg/dL (0.2-1); TOT PROT 5.3 g/dl (6.4-8.2)
[2021-10-14] MEDS ORDERED: DEXTROSE 5%-WATER 100 ML IVPB ONE (09:53)
[2021-10-14] MEDS: POLYETHYLENE GLYCOL (HEALTHYLAX) 3350 17 GM PACKET PO SCH ×2 (09:54→21:44)
[2021-10-14] MEDS: ZINC SULFATE 220 MG CAPSULE (FP) PO SCH (09:54)
[2021-10-14] MEDS: ESCITALOPRAM OXALATE 10 MG TABLET PO SCH (09:54)
[2021-10-14] MEDS: CEFTRIAXONE 2 GM in DEXTROSE 5%-WATER 100 ML IVPB SCH (09:54)
[2021-10-14] MEDS: MIDODRINE HCL 5 MG TABLET PO SCH ×3 (09:54→17:09)
[2021-10-14] MEDS: Mirabegron [Myrbetriq] 50 MG Tab.Er.24h PO SCH (09:55)
[2021-10-14] MEDS: PIMAVANSERIN 34 MG PO SCH (09:56)
[2021-10-14] MEDS: MULTIVITAMINS THER W-MINERALS COMBO TABLET (FP) PO SCH (09:57)
[2021-10-14] MEDS ORDERED: FUROSEMIDE 20 MG TABLET (FP) PO SCH (10:00)
[2021-10-14] MEDS: ALLOPURINOL 300 MG TABLET (FP) PO SCH (10:01)
[2021-10-14] MEDS: ATORVASTATIN CA 20 MG TABLET (FP) PO SCH (21:44)
[2021-10-14] MEDS: QUEtiapine FUMARATE 100 MG TABLET (FP) PO SCH (21:44)
[2021-10-15] MEDS: CARBIDOPA/LEVODOPA 25/250 TABLET (FP) PO SCH ×4 (06:12→18:43)
[2021-10-15] MEDS: INSULIN SLIDING SCALE (NOVOLOG) 1 VIAL SQ SCH ×4 (06:19→22:07)
[2021-10-15 09:11] LABS: HEMATOCRIT 27.2 % (35.4-49); HEMOGLOBIN 8.8 GM/dL (11.7-16.9); MCH 26.1 pg (25.7-33.7); MCHC 32.6 g/dl (32.0-35.9); MEAN CELL VOLUME 80.2 fl (80-96); MEAN PLT VOLUME 10.9 fl (7.5-11.1); PLATELET COUNT 169 10^3/uL (134-434); RBC 3.39 M/mm3 (4.00-5.60); RDW 18.8 % (11.9-15.9); WHITE BLOOD COUNT 10.2 K/mm3 (4.0-10.0)
[2021-10-15 09:33] LABS: CALCIUM 8.2 mg/dL (8.5-10.1)
[2021-10-15 09:34] LABS: ALBUMIN 2.3 g/dl (3.4-5.0); BLOOD UREA NITROGEN 80.2 mg/dL (7-18)
[2021-10-15 09:37] LABS: CREATININE 2.2 mg/dL (0.55-1.3)
[2021-10-15 09:38] LABS: BILIRUBIN,TOTAL 0.7 mg/dL (0.2-1); TOT PROT 5.8 g/dl (6.4-8.2)
[2021-10-15] MEDS ORDERED: DEXTROSE 5%-WATER 100 ML IVPB ONE (10:23)
[2021-10-15] MEDS: POLYETHYLENE GLYCOL (HEALTHYLAX) 3350 17 GM PACKET PO SCH ×2 (10:28→22:01)
[2021-10-15] MEDS: Mirabegron [Myrbetriq] 50 MG Tab.Er.24h PO SCH (10:29)
[2021-10-15] MEDS: ZINC SULFATE 220 MG CAPSULE (FP) PO SCH (10:30)
[2021-10-15] MEDS: ALLOPURINOL 300 MG TABLET (FP) PO SCH (10:30)
[2021-10-15] MEDS: PIMAVANSERIN 34 MG PO SCH (10:31)
[2021-10-15] MEDS: ESCITALOPRAM OXALATE 10 MG TABLET PO SCH (10:31)
[2021-10-15] MEDS: MULTIVITAMINS THER W-MINERALS COMBO TABLET (FP) PO SCH (10:32)
[2021-10-15] MEDS: MIDODRINE HCL 5 MG TABLET PO SCH ×3 (10:32→18:43)
[2021-10-15] MEDS: CEFTRIAXONE 2 GM in DEXTROSE 5%-WATER 100 ML IVPB SCH (10:33)
[2021-10-15 11:54] LABS: INR 1.79 (0.83-1.09); PROTHROMBIN TIME (PATIENT) 20.7 SEC (9.7-13.0)
[2021-10-15] MEDS: metoPROLOL SUCCINATE 25 MG TAB.SR.24H (FP) PO SCH (15:32)
[2021-10-15] MEDS: QUEtiapine FUMARATE 100 MG TABLET (FP) PO SCH (22:03)
[2021-10-15] MEDS: ATORVASTATIN CA 20 MG TABLET (FP) PO SCH (22:03)
[2021-10-16] MEDS: CARBIDOPA/LEVODOPA 25/250 TABLET (FP) PO SCH ×4 (06:00→19:35)
[2021-10-16] MEDS: INSULIN SLIDING SCALE (NOVOLOG) 1 VIAL SQ SCH ×4 (06:00→21:41)
[2021-10-16] MEDS: PANTOPRAZOLE SODIUM 40 MG in SODIUM CHLORIDE 100 ML IVPB SCH (07:56)
[2021-10-16] MEDS: PANTOPRAZOLE 40 MG TABLET PO SCH ×2 (07:56→09:01)
[2021-10-16] MEDS ORDERED: DEXTROSE 5%-WATER 100 ML IVPB ONE (08:35)
[2021-10-16] MEDS: metoPROLOL SUCCINATE 25 MG TAB.SR.24H (FP) PO SCH (09:00)
[2021-10-16] MEDS: MULTIVITAMINS THER W-MINERALS COMBO TABLET (FP) PO SCH (09:00)
[2021-10-16] MEDS: ESCITALOPRAM OXALATE 10 MG TABLET PO SCH (09:00)
[2021-10-16] MEDS: MIDODRINE HCL 5 MG TABLET PO SCH ×3 (09:00→19:35)
[2021-10-16] MEDS: ZINC SULFATE 220 MG CAPSULE (FP) PO SCH (09:01)
[2021-10-16] MEDS: CEFTRIAXONE 2 GM in DEXTROSE 5%-WATER 100 ML IVPB SCH (09:01)
[2021-10-16] MEDS: POLYETHYLENE GLYCOL (HEALTHYLAX) 3350 17 GM PACKET PO SCH (09:01)
[2021-10-16] MEDS: PIMAVANSERIN 34 MG PO SCH (09:01)
[2021-10-16] MEDS: ALLOPURINOL 300 MG TABLET (FP) PO SCH (09:02)
[2021-10-16] MEDS: Mirabegron [Myrbetriq] 50 MG Tab.Er.24h PO SCH (09:05)
[2021-10-16] MEDS ORDERED: BISACODYL 10 MG SUPP.RECT PR ONE (09:15)
[2021-10-16] MEDS ORDERED: BISACODYL 10 MG SUPP.RECT PR PRN (09:15)
[2021-10-16] MEDS: SCOPOLAMINE HYDROBROMIDE 1 PATCH PATCH.TD72 TD SCH (09:40)
[2021-10-16] MEDS ORDERED: FUROSEMIDE 40 MG/4 ML INJECTABLE VIAL IVPUSH ONE (12:22)
[2021-10-16] MEDS: RIVAROXABAN 10 MG TABLET PO SCH (14:56)
[2021-10-16] MEDS: ATORVASTATIN CA 20 MG TABLET (FP) PO SCH (21:41)
[2021-10-16] MEDS: QUEtiapine FUMARATE 100 MG TABLET (FP) PO SCH (21:42)
[2021-10-16] MEDS: SENNOSIDES 8.8 MG/5 ML BULK BOTTLE PO SCH (21:42)
[2021-10-17] MEDS: CARBIDOPA/LEVODOPA 25/250 TABLET (FP) PO SCH ×4 (05:56→17:22)
[2021-10-17] MEDS: INSULIN SLIDING SCALE (NOVOLOG) 1 VIAL SQ SCH ×4 (06:16→22:24)
[2021-10-17 07:27] LABS: CALCIUM 8.3 mg/dL (8.5-10.1)
[2021-10-17 07:28] LABS: ALBUMIN 2.4 g/dl (3.4-5.0); BLOOD UREA NITROGEN 67.6 mg/dL (7-18)
[2021-10-17 07:31] LABS: CREATININE 1.8 mg/dL (0.55-1.3)
[2021-10-17 07:32] LABS: TOT PROT 5.9 g/dl (6.4-8.2)
[2021-10-17 07:33] LABS: BILIRUBIN,TOTAL 0.6 mg/dL (0.2-1)
[2021-10-17] MEDS ORDERED: FUROSEMIDE 40 MG/4 ML INJECTABLE VIAL IVPUSH ONE (08:54)
[2021-10-17] MEDS ORDERED: DEXTROSE 5%-WATER 100 ML IVPB ONE (09:17)
[2021-10-17] MEDS: PANTOPRAZOLE 40 MG TABLET PO SCH (09:20)
[2021-10-17] MEDS: ESCITALOPRAM OXALATE 10 MG TABLET PO SCH (09:20)
[2021-10-17] MEDS: MIDODRINE HCL 5 MG TABLET PO SCH ×3 (09:20→17:22)
[2021-10-17] MEDS: CEFTRIAXONE 2 GM in DEXTROSE 5%-WATER 100 ML IVPB SCH (09:21)
[2021-10-17] MEDS: ZINC SULFATE 220 MG CAPSULE (FP) PO SCH (09:21)
[2021-10-17] MEDS: Mirabegron [Myrbetriq] 50 MG Tab.Er.24h PO SCH (09:24)
[2021-10-17] MEDS: PIMAVANSERIN 34 MG PO SCH (09:26)
[2021-10-17] MEDS: MULTIVITAMINS THER W-MINERALS COMBO TABLET (FP) PO SCH (09:27)
[2021-10-17] MEDS: ALLOPURINOL 300 MG TABLET (FP) PO SCH (09:28)
[2021-10-17] MEDS: RIVAROXABAN 10 MG TABLET PO SCH (09:28)
[2021-10-17] MEDS: metoPROLOL SUCCINATE 25 MG TAB.SR.24H (FP) PO SCH (09:33)
[2021-10-17] MEDS: AMINO ACIDS/PROTEIN HYDROLYS 30 ML LIQUID.PKT PO SCH (17:21)
[2021-10-17] MEDS ORDERED: MIDODRINE HCL 5 MG TABLET PO SCH (19:27)
[2021-10-17] MEDS: QUEtiapine FUMARATE 100 MG TABLET (FP) PO SCH (22:23)
[2021-10-17] MEDS: ATORVASTATIN CA 20 MG TABLET (FP) PO SCH (22:23)
[2021-10-17] MEDS: SENNOSIDES 8.8 MG/5 ML BULK BOTTLE PO SCH (22:23)
[2021-10-18] MEDS: CARBIDOPA/LEVODOPA 25/250 TABLET (FP) PO SCH ×4 (06:18→17:44)
[2021-10-18] MEDS: INSULIN SLIDING SCALE (NOVOLOG) 1 VIAL SQ SCH ×4 (06:21→22:09)
[2021-10-18] MEDS ORDERED: INSULIN SLIDING SCALE (NOVOLOG) 1 VIAL SQ ONE (06:57)
[2021-10-18 07:23] LABS: HEMATOCRIT 26.3 % (35.4-49); HEMOGLOBIN 8.1 GM/dL (11.7-16.9); MCH 24.9 pg (25.7-33.7); MCHC 30.6 g/dl (32.0-35.9); MEAN CELL VOLUME 81.4 fl (80-96); MEAN PLT VOLUME 11.1 fl (7.5-11.1); PLATELET COUNT 198 10^3/uL (134-434); RBC 3.24 M/mm3 (4.00-5.60); RDW 18.9 % (11.9-15.9); WHITE BLOOD COUNT 11.8 K/mm3 (4.0-10.0)
[2021-10-18 07:50] LABS: ALBUMIN 2.3 g/dl (3.4-5.0); BLOOD UREA NITROGEN 61.9 mg/dL (7-18); CALCIUM 8.5 mg/dL (8.5-10.1)
[2021-10-18 07:53] LABS: CREATININE 1.6 mg/dL (0.55-1.3)
[2021-10-18 07:54] LABS: TOT PROT 5.3 g/dl (6.4-8.2)
[2021-10-18] MEDS ORDERED: DEXTROSE 5%-WATER 100 ML IVPB ONE (11:06)
[2021-10-18] MEDS: ESCITALOPRAM OXALATE 10 MG TABLET PO SCH (11:07)
[2021-10-18] MEDS: AMINO ACIDS/PROTEIN HYDROLYS 30 ML LIQUID.PKT PO SCH ×2 (11:07→17:44)
[2021-10-18] MEDS: ZINC SULFATE 220 MG CAPSULE (FP) PO SCH (11:08)
[2021-10-18] MEDS: PANTOPRAZOLE 40 MG TABLET PO SCH (11:09)
[2021-10-18] MEDS: MIDODRINE HCL 5 MG TABLET PO SCH ×2 (11:09→17:44)
[2021-10-18] MEDS: CEFTRIAXONE 2 GM in DEXTROSE 5%-WATER 100 ML IVPB SCH (11:09)
[2021-10-18] MEDS: Mirabegron [Myrbetriq] 50 MG Tab.Er.24h PO SCH (11:10)
[2021-10-18] MEDS: PIMAVANSERIN 34 MG PO SCH (11:12)
[2021-10-18] MEDS: MULTIVITAMINS THER W-MINERALS COMBO TABLET (FP) PO SCH (11:13)
[2021-10-18] MEDS: RIVAROXABAN 10 MG TABLET PO SCH (11:14)
[2021-10-18] MEDS: ALLOPURINOL 300 MG TABLET (FP) PO SCH (11:14)
[2021-10-18] MEDS: FUROSEMIDE 40 MG TABLET (FP) PO SCH (15:57)
[2021-10-18] MEDS: QUEtiapine FUMARATE 100 MG TABLET (FP) PO SCH (22:08)
[2021-10-18] MEDS: SENNOSIDES 8.8 MG/5 ML BULK BOTTLE PO SCH (22:08)
[2021-10-18] MEDS: ATORVASTATIN CA 20 MG TABLET (FP) PO SCH (22:08)
[2021-10-19] MEDS: INSULIN SLIDING SCALE (NOVOLOG) 1 VIAL SQ SCH ×4 (06:01→21:31)
[2021-10-19] MEDS: CARBIDOPA/LEVODOPA 25/250 TABLET (FP) PO SCH ×4 (06:40→18:47)
[2021-10-19] MEDS ORDERED: DEXTROSE 5%-WATER 100 ML IVPB ONE (12:04)
[2021-10-19] MEDS: FUROSEMIDE 40 MG TABLET (FP) PO SCH (12:05)
[2021-10-19] MEDS: ZINC SULFATE 220 MG CAPSULE (FP) PO SCH (12:05)
[2021-10-19] MEDS: SCOPOLAMINE HYDROBROMIDE 1 PATCH PATCH.TD72 TD SCH (12:05)
[2021-10-19] MEDS: MULTIVITAMINS THER W-MINERALS COMBO TABLET (FP) PO SCH (12:06)
[2021-10-19] MEDS: MIDODRINE HCL 5 MG TABLET PO SCH ×2 (12:06→18:47)
[2021-10-19] MEDS: CEFTRIAXONE 2 GM in DEXTROSE 5%-WATER 100 ML IVPB SCH (12:07)
[2021-10-19] MEDS: Mirabegron [Myrbetriq] 50 MG Tab.Er.24h PO SCH (12:07)
[2021-10-19] MEDS: PANTOPRAZOLE 40 MG TABLET PO SCH (12:07)
[2021-10-19] MEDS: RIVAROXABAN 10 MG TABLET PO SCH (12:07)
[2021-10-19] MEDS: PIMAVANSERIN 34 MG PO SCH (12:07)
[2021-10-19] MEDS: ESCITALOPRAM OXALATE 10 MG TABLET PO SCH (12:08)
[2021-10-19] MEDS: AMINO ACIDS/PROTEIN HYDROLYS 30 ML LIQUID.PKT PO SCH ×2 (12:08→18:47)
[2021-10-19] MEDS: ALLOPURINOL 300 MG TABLET (FP) PO SCH (12:08)
[2021-10-19] MEDS: SENNOSIDES 8.8 MG/5 ML BULK BOTTLE PO SCH (21:30)
[2021-10-19] MEDS: ATORVASTATIN CA 20 MG TABLET (FP) PO SCH (21:30)
[2021-10-19] MEDS: QUEtiapine FUMARATE 100 MG TABLET (FP) PO SCH (21:30)
[2021-10-20] MEDS: INSULIN SLIDING SCALE (NOVOLOG) 1 VIAL SQ SCH ×4 (06:29→21:48)
[2021-10-20] MEDS: CARBIDOPA/LEVODOPA 25/250 TABLET (FP) PO SCH ×4 (06:43→18:13)
[2021-10-20] MEDS ORDERED: DEXTROSE 5%-WATER 100 ML IVPB ONE (10:30)
[2021-10-20] MEDS: CEFTRIAXONE 2 GM in DEXTROSE 5%-WATER 100 ML IVPB SCH (10:35)
[2021-10-20] MEDS: AMINO ACIDS/PROTEIN HYDROLYS 30 ML LIQUID.PKT PO SCH ×2 (10:35→18:13)
[2021-10-20] MEDS: Mirabegron [Myrbetriq] 50 MG Tab.Er.24h PO SCH (10:36)
[2021-10-20] MEDS: RIVAROXABAN 10 MG TABLET PO SCH (10:36)
[2021-10-20] MEDS: MULTIVITAMINS THER W-MINERALS COMBO TABLET (FP) PO SCH (10:36)
[2021-10-20] MEDS: ESCITALOPRAM OXALATE 10 MG TABLET PO SCH (10:39)
[2021-10-20] MEDS: MIDODRINE HCL 5 MG TABLET PO SCH ×2 (10:39→18:13)
[2021-10-20] MEDS: FUROSEMIDE 40 MG TABLET (FP) PO SCH (10:39)
[2021-10-20] MEDS: PANTOPRAZOLE 40 MG TABLET PO SCH (10:39)
[2021-10-20] MEDS: ZINC SULFATE 220 MG CAPSULE (FP) PO SCH (10:39)
[2021-10-20] MEDS: ALLOPURINOL 300 MG TABLET (FP) PO SCH (10:40)
[2021-10-20] MEDS: PIMAVANSERIN 34 MG PO SCH (10:40)
[2021-10-20 14:02] LABS: BASO % 0.9 % (0-2.0); EOS % 2.2 % (0-4.5); HEMATOCRIT 25.6 % (35.4-49); LYMPH % 9.8 % (8-40); MCH 25.4 pg (25.7-33.7); MCHC 31.5 g/dl (32.0-35.9); MEAN CELL VOLUME 80.7 fl (80-96); MEAN PLT VOLUME 11.1 fl (7.5-11.1); MONO % 6.5 % (3.8-10.2); NEUT % 80.6 % (42.8-82.8); PLATELET COUNT 221 10^3/uL (134-434); RBC 3.17 M/mm3 (4.00-5.60); RDW 18.8 % (11.9-15.9); WHITE BLOOD COUNT 9.8 K/mm3 (4.0-10.0)
[2021-10-20 14:32] LABS: BLOOD UREA NITROGEN 60.9 mg/dL (7-18); CALCIUM 8.5 mg/dL (8.5-10.1)
[2021-10-20 14:33] LABS: ALBUMIN 2.4 g/dl (3.4-5.0)
[2021-10-20 14:37] LABS: BILIRUBIN,TOTAL 1.1 mg/dL (0.2-1); TOT PROT 5.6 g/dl (6.4-8.2)
[2021-10-20 14:44] LABS: CREATININE 1.6 mg/dL (0.55-1.3)
[2021-10-20] MEDS: SENNOSIDES 8.8 MG/5 ML BULK BOTTLE PO SCH (21:48)
[2021-10-20] MEDS: ATORVASTATIN CA 20 MG TABLET (FP) PO SCH (21:48)
[2021-10-20] MEDS: QUEtiapine FUMARATE 100 MG TABLET (FP) PO SCH (21:49)
[2021-10-21] MEDS: CARBIDOPA/LEVODOPA 25/250 TABLET (FP) PO SCH ×4 (06:49→17:36)
[2021-10-21] MEDS: INSULIN SLIDING SCALE (NOVOLOG) 1 VIAL SQ SCH ×4 (06:49→21:52)
[2021-10-21 09:14] LABS: CALCIUM 8.6 mg/dL (8.5-10.1)
[2021-10-21 09:15] LABS: ALBUMIN 2.4 g/dl (3.4-5.0); BLOOD UREA NITROGEN 58.3 mg/dL (7-18)
[2021-10-21 09:18] LABS: CREATININE 1.5 mg/dL (0.55-1.3)
[2021-10-21 09:19] LABS: BILIRUBIN,TOTAL 0.4 mg/dL (0.2-1)
[2021-10-21 09:20] LABS: TOT PROT 5.7 g/dl (6.4-8.2)
[2021-10-21] MEDS ORDERED: SODIUM ZIRCONIUM CYCLOSILICATE (LOKELMA) 5 GM PACKET PO ONE (11:00)
[2021-10-21] MEDS ORDERED: DEXTROSE 5%-WATER 100 ML IVPB ONE (11:03)
[2021-10-21] MEDS: ZINC SULFATE 220 MG CAPSULE (FP) PO SCH (11:22)
[2021-10-21] MEDS: ESCITALOPRAM OXALATE 10 MG TABLET PO SCH (11:22)
[2021-10-21] MEDS: PANTOPRAZOLE 40 MG TABLET PO SCH (11:22)
[2021-10-21] MEDS: AMINO ACIDS/PROTEIN HYDROLYS 30 ML LIQUID.PKT PO SCH ×2 (11:22→17:36)
[2021-10-21] MEDS: CEFTRIAXONE 2 GM in DEXTROSE 5%-WATER 100 ML IVPB SCH (11:23)
[2021-10-21] MEDS: FUROSEMIDE 40 MG TABLET (FP) PO SCH (11:23)
[2021-10-21] MEDS: MIDODRINE HCL 5 MG TABLET PO SCH ×2 (11:23→17:37)
[2021-10-21 11:38] LABS: BASO % 0.7 % (0-2.0); EOS % 2.7 % (0-4.5); HEMATOCRIT 26.5 % (35.4-49); HEMOGLOBIN 8.3 GM/dL (11.7-16.9); LYMPH % 10.7 % (8-40); MCH 25.4 pg (25.7-33.7); MCHC 31.3 g/dl (32.0-35.9); MEAN CELL VOLUME 81.2 fl (80-96); MEAN PLT VOLUME 11.1 fl (7.5-11.1); MONO % 7.2 % (3.8-10.2); NEUT % 78.7 % (42.8-82.8); PLATELET COUNT 256 10^3/uL (134-434); RBC 3.27 M/mm3 (4.00-5.60); RDW 19.3 % (11.9-15.9); WHITE BLOOD COUNT 11.8 K/mm3 (4.0-10.0)
[2021-10-21] MEDS: MULTIVITAMINS THER W-MINERALS COMBO TABLET (FP) PO SCH (11:45)
[2021-10-21] MEDS: ALLOPURINOL 300 MG TABLET (FP) PO SCH (11:46)
[2021-10-21] MEDS: Mirabegron [Myrbetriq] 50 MG Tab.Er.24h PO SCH (11:48)
[2021-10-21] MEDS: PIMAVANSERIN 34 MG PO SCH (11:49)
[2021-10-21] MEDS: RIVAROXABAN 10 MG TABLET PO SCH (14:43)
[2021-10-21] MEDS ORDERED: FUROSEMIDE 40 MG/4 ML INJECTABLE VIAL IVPUSH ONE (16:00)
[2021-10-21] MEDS: SENNOSIDES 8.8 MG/5 ML BULK BOTTLE PO SCH (21:52)
[2021-10-21] MEDS: QUEtiapine FUMARATE 100 MG TABLET (FP) PO SCH (21:52)
[2021-10-21] MEDS: ATORVASTATIN CA 20 MG TABLET (FP) PO SCH (21:52)
[2021-10-22] MEDS: INSULIN SLIDING SCALE (NOVOLOG) 1 VIAL SQ SCH ×4 (06:31→21:04)
[2021-10-22] MEDS: CARBIDOPA/LEVODOPA 25/250 TABLET (FP) PO SCH ×4 (06:32→17:11)
[2021-10-22 08:56] LABS: BASO % 1.2 % (0-2.0); EOS % 2.8 % (0-4.5); HEMATOCRIT 26.5 % (35.4-49); HEMOGLOBIN 8.2 GM/dL (11.7-16.9); LYMPH % 14.1 % (8-40); MCH 25.1 pg (25.7-33.7); MCHC 30.8 g/dl (32.0-35.9); MEAN CELL VOLUME 81.4 fl (80-96); MEAN PLT VOLUME 11.6 fl (7.5-11.1); NEUT % 72.9 % (42.8-82.8); PLATELET COUNT 235 10^3/uL (134-434); RBC 3.26 M/mm3 (4.00-5.60); RDW 19.1 % (11.9-15.9)
[2021-10-22 09:17] LABS: BLOOD UREA NITROGEN 59.6 mg/dL (7-18); CALCIUM 8.9 mg/dL (8.5-10.1)
[2021-10-22 09:20] LABS: CREATININE 1.4 mg/dL (0.55-1.3)
[2021-10-22] MEDS: ESCITALOPRAM OXALATE 10 MG TABLET PO SCH (09:50)
[2021-10-22] MEDS: PANTOPRAZOLE 40 MG TABLET PO SCH (09:50)
[2021-10-22] MEDS: MIDODRINE HCL 5 MG TABLET PO SCH ×2 (09:50→17:11)
[2021-10-22] MEDS: FUROSEMIDE 40 MG TABLET (FP) PO SCH (09:50)
[2021-10-22] MEDS: ZINC SULFATE 220 MG CAPSULE (FP) PO SCH (09:50)
[2021-10-22] MEDS: SCOPOLAMINE HYDROBROMIDE 1 PATCH PATCH.TD72 TD SCH (09:51)
[2021-10-22] MEDS: AMINO ACIDS/PROTEIN HYDROLYS 30 ML LIQUID.PKT PO SCH ×2 (09:51→17:11)
[2021-10-22] MEDS: PIMAVANSERIN 34 MG PO SCH (09:52)
[2021-10-22] MEDS: Mirabegron [Myrbetriq] 50 MG Tab.Er.24h PO SCH (09:52)
[2021-10-22] MEDS: MULTIVITAMINS THER W-MINERALS COMBO TABLET (FP) PO SCH (09:53)
[2021-10-22] MEDS: ALLOPURINOL 300 MG TABLET (FP) PO SCH (09:53)
[2021-10-22] MEDS: FUROSEMIDE 40 MG/4 ML INJECTABLE VIAL IVPUSH SCH (13:42)
[2021-10-22] MEDS: ATORVASTATIN CA 20 MG TABLET (FP) PO SCH (21:04)
[2021-10-22] MEDS: QUEtiapine FUMARATE 100 MG TABLET (FP) PO SCH (21:04)
[2021-10-22] MEDS: SENNOSIDES 8.8 MG/5 ML BULK BOTTLE PO SCH (21:04)
[2021-10-23] MEDS: FUROSEMIDE 40 MG/4 ML INJECTABLE VIAL IVPUSH SCH (06:12)
[2021-10-23] MEDS: CARBIDOPA/LEVODOPA 25/250 TABLET (FP) PO SCH ×4 (06:13→17:38)
[2021-10-23] MEDS: INSULIN SLIDING SCALE (NOVOLOG) 1 VIAL SQ SCH ×4 (06:24→21:45)
[2021-10-23 08:08] LABS: ALBUMIN 2.3 g/dl (3.4-5.0); BLOOD UREA NITROGEN 56.8 mg/dL (7-18); CALCIUM 8.6 mg/dL (8.5-10.1)
[2021-10-23 08:11] LABS: CREATININE 1.4 mg/dL (0.55-1.3)
[2021-10-23 08:12] LABS: BILIRUBIN,TOTAL 0.6 mg/dL (0.2-1); TOT PROT 5.5 g/dl (6.4-8.2)
[2021-10-23] MEDS: AMINO ACIDS/PROTEIN HYDROLYS 30 ML LIQUID.PKT PO SCH ×2 (09:43→17:38)
[2021-10-23] MEDS: ZINC SULFATE 220 MG CAPSULE (FP) PO SCH (09:43)
[2021-10-23] MEDS: PANTOPRAZOLE 40 MG TABLET PO SCH (09:44)
[2021-10-23] MEDS: MULTIVITAMINS THER W-MINERALS COMBO TABLET (FP) PO SCH (09:44)
[2021-10-23] MEDS: ESCITALOPRAM OXALATE 10 MG TABLET PO SCH (09:44)
[2021-10-23] MEDS: MIDODRINE HCL 5 MG TABLET PO SCH ×2 (09:44→17:38)
[2021-10-23] MEDS: ALLOPURINOL 300 MG TABLET (FP) PO SCH (09:45)
[2021-10-23] MEDS: PIMAVANSERIN 34 MG PO SCH (09:46)
[2021-10-23] MEDS: Mirabegron [Myrbetriq] 50 MG Tab.Er.24h PO SCH (09:46)
[2021-10-23] MEDS: FERROUS SO4 325 MG TABLET (FP) PO SCH (17:38)
[2021-10-23] MEDS: ATORVASTATIN CA 20 MG TABLET (FP) PO SCH (21:45)
[2021-10-23] MEDS: SENNOSIDES 8.8 MG/5 ML BULK BOTTLE PO SCH (21:46)
[2021-10-23] MEDS: QUEtiapine FUMARATE 100 MG TABLET (FP) PO SCH (21:46)
[2021-10-24] MEDS: INSULIN SLIDING SCALE (NOVOLOG) 1 VIAL SQ SCH ×4 (06:02→21:13)
[2021-10-24] MEDS: CARBIDOPA/LEVODOPA 25/250 TABLET (FP) PO SCH ×4 (06:14→17:40)
[2021-10-24] MEDS ORDERED: IRON SUCROSE INJECTION 300 MG in SODIUM CHLORIDE 235 ML IVPB ONE (10:00)
[2021-10-24] MEDS: FERROUS SO4 325 MG TABLET (FP) PO SCH ×2 (10:45→17:40)
[2021-10-24] MEDS: AMINO ACIDS/PROTEIN HYDROLYS 30 ML LIQUID.PKT PO SCH ×2 (10:45→17:40)
[2021-10-24] MEDS: FUROSEMIDE 40 MG/4 ML INJECTABLE VIAL IVPUSH SCH (10:45)
[2021-10-24] MEDS: ASCORBIC ACID 500 MG TABLET (FP) PO SCH (10:45)
[2021-10-24] MEDS: ZINC SULFATE 220 MG CAPSULE (FP) PO SCH (10:46)
[2021-10-24] MEDS: MIDODRINE HCL 5 MG TABLET PO SCH ×2 (10:46→17:41)
[2021-10-24] MEDS: PANTOPRAZOLE 40 MG TABLET PO SCH (10:46)
[2021-10-24] MEDS: FOLIC ACID 1 MG TABLET (FP) PO SCH (10:46)
[2021-10-24] MEDS: ESCITALOPRAM OXALATE 10 MG TABLET PO SCH (10:46)
[2021-10-24] MEDS: MULTIVITAMINS THER W-MINERALS COMBO TABLET (FP) PO SCH (10:59)
[2021-10-24] MEDS: ALLOPURINOL 300 MG TABLET (FP) PO SCH (11:00)
[2021-10-24] MEDS: Mirabegron [Myrbetriq] 50 MG Tab.Er.24h PO SCH (11:02)
[2021-10-24] MEDS: PIMAVANSERIN 34 MG PO SCH (11:02)
[2021-10-24] MEDS: SENNOSIDES 8.8 MG/5 ML BULK BOTTLE PO SCH (21:12)
[2021-10-24] MEDS: ATORVASTATIN CA 20 MG TABLET (FP) PO SCH (21:12)
[2021-10-24] MEDS: QUEtiapine FUMARATE 100 MG TABLET (FP) PO SCH (21:13)
[2021-10-25] MEDS: CARBIDOPA/LEVODOPA 25/250 TABLET (FP) PO SCH ×4 (05:51→17:02)
[2021-10-25] MEDS: INSULIN SLIDING SCALE (NOVOLOG) 1 VIAL SQ SCH ×4 (06:02→21:35)
[2021-10-25 07:07] LABS: SARS-CoV-2 NAA Not Detected (Not Detected)
[2021-10-25] MEDS: ZINC SULFATE 220 MG CAPSULE (FP) PO SCH (10:34)
[2021-10-25] MEDS: ESCITALOPRAM OXALATE 10 MG TABLET PO SCH (10:35)
[2021-10-25] MEDS: FOLIC ACID 1 MG TABLET (FP) PO SCH (10:35)
[2021-10-25] MEDS: FERROUS SO4 325 MG TABLET (FP) PO SCH ×2 (10:35→17:02)
[2021-10-25] MEDS: PANTOPRAZOLE 40 MG TABLET PO SCH (10:35)
[2021-10-25] MEDS: ASCORBIC ACID 500 MG TABLET (FP) PO SCH (10:36)
[2021-10-25] MEDS: MULTIVITAMINS THER W-MINERALS COMBO TABLET (FP) PO SCH (10:36)
[2021-10-25] MEDS: MIDODRINE HCL 5 MG TABLET PO SCH ×2 (10:36→17:54)
[2021-10-25] MEDS: PIMAVANSERIN 34 MG PO SCH (10:38)
[2021-10-25] MEDS: Mirabegron [Myrbetriq] 50 MG Tab.Er.24h PO SCH (10:38)
[2021-10-25] MEDS: SCOPOLAMINE HYDROBROMIDE 1 PATCH PATCH.TD72 TD SCH (10:38)
[2021-10-25] MEDS: AMINO ACIDS/PROTEIN HYDROLYS 30 ML LIQUID.PKT PO SCH ×2 (10:45→17:02)
[2021-10-25] MEDS: FUROSEMIDE 40 MG/4 ML INJECTABLE VIAL IVPUSH SCH (10:52)
[2021-10-25] MEDS: ALLOPURINOL 300 MG TABLET (FP) PO SCH (11:19)
[2021-10-25] MEDS: ATORVASTATIN CA 20 MG TABLET (FP) PO SCH (21:35)
[2021-10-25] MEDS: SENNOSIDES 8.8 MG/5 ML BULK BOTTLE PO SCH (21:36)
[2021-10-25] MEDS: QUEtiapine FUMARATE 100 MG TABLET (FP) PO SCH (21:36)
[2021-10-25] MEDS ORDERED: ACETAMINOPHEN 650 MG/20.3 ML ORAL SOLUTION (CUPS) PO ONE (22:07)
[2021-10-26] MEDS: CARBIDOPA/LEVODOPA 25/250 TABLET (FP) PO SCH ×3 (05:59→15:23)
[2021-10-26] MEDS: INSULIN SLIDING SCALE (NOVOLOG) 1 VIAL SQ SCH ×2 (06:01→11:48)
[2021-10-26 07:37] LABS: ALBUMIN 2.6 g/dl (3.4-5.0); BLOOD UREA NITROGEN 56.5 mg/dL (7-18); CALCIUM 8.6 mg/dL (8.5-10.1)
[2021-10-26 07:40] LABS: CREATININE 1.5 mg/dL (0.55-1.3)
[2021-10-26 07:43] LABS: BILIRUBIN,TOTAL 0.6 mg/dL (0.2-1)
[2021-10-26 09:43] VITALS: BP 123/52; PULSE 74; TEMP 98.2
[2021-10-26] MEDS: FERROUS SO4 325 MG TABLET (FP) PO SCH (09:50)
[2021-10-26] MEDS: ASCORBIC ACID 500 MG TABLET (FP) PO SCH (09:50)
[2021-10-26] MEDS: PANTOPRAZOLE 40 MG TABLET PO SCH (09:50)
[2021-10-26] MEDS: MIDODRINE HCL 5 MG TABLET PO SCH (09:50)
[2021-10-26] MEDS: AMINO ACIDS/PROTEIN HYDROLYS 30 ML LIQUID.PKT PO SCH (09:50)
[2021-10-26] MEDS: FUROSEMIDE 40 MG/4 ML INJECTABLE VIAL IVPUSH SCH (09:50)
[2021-10-26] MEDS: FOLIC ACID 1 MG TABLET (FP) PO SCH (09:50)
[2021-10-26] MEDS: ZINC SULFATE 220 MG CAPSULE (FP) PO SCH (09:50)
[2021-10-26] MEDS: Mirabegron [Myrbetriq] 50 MG Tab.Er.24h PO SCH (09:51)
[2021-10-26] MEDS: ESCITALOPRAM OXALATE 10 MG TABLET PO SCH (09:51)
[2021-10-26] MEDS: PIMAVANSERIN 34 MG PO SCH (09:52)
[2021-10-26] MEDS: MULTIVITAMINS THER W-MINERALS COMBO TABLET (FP) PO SCH (09:53)
[2021-10-26] MEDS: ALLOPURINOL 300 MG TABLET (FP) PO SCH (09:53)
== END 2021-10-26 14:30 | disposition home health service (06) | DRG 871 ==
LOC: JER 19:18 → JERBED 20:12 → J6S 10-11 11:55 → J4S 10-11 23:17
PROVIDERS: ADMIT Hospitalist; ATTEND Family Medicine
DX: A41.51 Sepsis due to Escherichia coli [E. coli] (principal); L89.154 Pressure ulcer of sacral region, stage 4; J69.0 Pneumonitis due to inhalation of food and vomit; I50.23 Acute on chronic systolic (congestive) heart failure; G93.41 Metabolic encephalopathy; N17.9 Acute kidney failure, unspecified; N39.0 Urinary tract infection, site not specified; E87.2 Acidosis; I13.0 Hypertensive heart and chronic kidney disease with heart failure and stage 1 through stage 4 chronic kidney disease, or unspecified chronic kidney disease; D68.8 Other specified coagulation defects; J44.0 Chronic obstructive pulmonary disease with (acute) lower respiratory infection; J98.11 Atelectasis; G20 Parkinson's disease; N40.0 Benign prostatic hyperplasia without lower urinary tract symptoms; L89.610 Pressure ulcer of right heel, unstageable; L89.312 Pressure ulcer of right buttock, stage 2; L89.132 Pressure ulcer of right lower back, stage 2; R41.82 Altered mental status, unspecified; E78.5 Hyperlipidemia, unspecified; I25.10 Atherosclerotic heart disease of native coronary artery without angina pectoris; J44.9 Chronic obstructive pulmonary disease, unspecified; E11.22 Type 2 diabetes mellitus with diabetic chronic kidney disease; N18.9 Chronic kidney disease, unspecified; D50.9 Iron deficiency anemia, unspecified; D72.829 Elevated white blood cell count, unspecified; R32 Unspecified urinary incontinence; R00.0 Tachycardia, unspecified; I49.9 Cardiac arrhythmia, unspecified; R62.7 Adult failure to thrive; Z68.24 Body mass index [BMI] 24.0-24.9, adult; Z95.5 Presence of coronary angioplasty implant and graft; Z22.322 Carrier or suspected carrier of Methicillin resistant Staphylococcus aureus; Z95.0 Presence of cardiac pacemaker
CPT/HCPCS: 36415; 70450-TC; 71045-TC-FY; 74230-TC-FY; 76775-TC; 76856-TC; 80048; 80053; 80061; 81003; 82010; 82272; 82436; 82553; 82570; 82728; 82803; 82962; 83036; 83540; 83550; 83605; 83880; 84133; 84300; 84443; 84484; 85025; 85027; 85610; 85730; 86140; 86850; 86900; 86901; 87040; 87086; 87186; 92611-GN; 93005; 93010; 97116-GP; 97162-GP; 99291; 99292; C9803-CS; J1756; U0003; U0005

== ENCOUNTER 2021-11-01 13:06 | Inpatient (IN) | payer OTHER, MEDICARE ==
[2021-11-01 15:21] LABS: VENOUS BASE EXCESS 7.3 mmol/L (-2-2); VENOUS O2 SATURATION 42.2 % (70-80); VENOUS PCO2 64.1 mmHg (38-52); VENOUS PH 7.346 (7.310-7.410)
[2021-11-01 15:25] LABS: BASO % 0.8 % (0-2.0); EOS % 3.2 % (0-4.5); HEMATOCRIT 27.1 % (35.4-49); HEMOGLOBIN 8.3 GM/dL (11.7-16.9); MCH 24.9 pg (25.7-33.7); MCHC 30.5 g/dl (32.0-35.9); MEAN CELL VOLUME 81.6 fl (80-96); MEAN PLT VOLUME 12.7 fl (7.5-11.1); MONO % 7.5 % (3.8-10.2); NEUT % 73.5 % (42.8-82.8); PLATELET COUNT 236 10^3/uL (134-434); RBC 3.32 M/mm3 (4.00-5.60); RDW 20.4 % (11.9-15.9); WHITE BLOOD COUNT 9.2 K/mm3 (4.0-10.0)
[2021-11-01 15:31] LABS: INR 2.11 (0.83-1.09); PROTHROMBIN TIME (PATIENT) 24.4 SEC (9.7-13.0)
[2021-11-01 15:34] LABS: ACTIVATED PTT 41.2 SECONDS (25.2-36.5)
[2021-11-01 15:54] LABS: CHLORIDE 98 mmol/L (98-107); SODIUM 136 mmol/L (136-145)
[2021-11-01 15:56] LABS: ALBUMIN 2.8 g/dl (3.4-5.0); CALCIUM 8.6 mg/dL (8.5-10.1); CO2 35 mmol/L (21-32); GLUCOSE,RANDOM 121 mg/dL (74-106)
[2021-11-01 15:57] LABS: BLOOD UREA NITROGEN 50.3 mg/dL (7-18)
[2021-11-01 15:59] LABS: CREATININE 1.5 mg/dL (0.55-1.3); SGPT/ALT 9 U/L (13-61)
[2021-11-01 16:00] LABS: SGOT/AST 55 U/L (15-37)
[2021-11-01 16:01] LABS: BILIRUBIN,TOTAL 0.9 mg/dL (0.2-1); EPI CELLS 26 /uL (0-25.1); HYALINE CASTS 2 /uL (0-3.1); TOT PROT 6.4 g/dl (6.4-8.2); URINE APPEARANCE CLEAR; URINE BACTERIA 12 /uL (0-1359); URINE BILIRUBIN NEGATIVE (NEGATIVE); URINE COLOR YELLOW; URINE GLUCOSE (UA) NEGATIVE (NEGATIVE); URINE KETONE NEGATIVE (NEGATIVE); URINE LEUK ESTERASE 2+ (NEGATIVE); URINE NITRITE NEGATIVE (NEGATIVE); URINE PROTEIN NEGATIVE (NEGATIVE); URINE RBC 14 /uL (0-23.9); URINE WBC 300 /uL (0-25.8)
[2021-11-01 16:02] LABS: ALK PHOS 194 U/L (45-117)
[2021-11-01 16:04] LABS: N-TERMINAL BNP 10812.2 pg/ml (5-450)
[2021-11-01] MEDS ORDERED: CEFEPIME HCL/D5W 2 GM/50 ML BAG IVPB ONE (16:18)
[2021-11-01] MEDS ORDERED: VANCOMYCIN 1 GM in D5W (PRE-DOCKED) 1,000 MG/250 ML IVPB ONE (16:18)
[2021-11-01 16:23] LABS: ANION GAP 4 MMOL/L (8-16)
[2021-11-01] MEDS ORDERED: VANCOMYCIN 1 GRAM (PRE-DOCKED) 1,000 MG/250 ML BAG IVPB ONE (16:26)
[2021-11-01] MEDS ORDERED: CEFEPIME 2 GM/100 ML BAG IVPB ONE (16:27)
[2021-11-01 16:45] LABS: YEAST FEW (NEGATIVE)
[2021-11-01] MEDS ORDERED: VANCOMYCIN 1 GM PREMIX - 1 GM/200 ML BAG IVPB SCH (17:45)
[2021-11-01 18:32] LABS: CALCIUM 8.7 mg/dL (8.5-10.1)
[2021-11-01 18:33] LABS: BLOOD UREA NITROGEN 50.3 mg/dL (7-18)
[2021-11-01 18:36] LABS: CREATININE 1.3 mg/dL (0.55-1.3)
[2021-11-01] MEDS ORDERED: CARBIDOPA/LEVODOPA 25/250 TABLET (FP) ONE (22:22)
[2021-11-01] MEDS: CARBIDOPA/LEVODOPA 25/250 TABLET (FP) PO SCH (22:43)
[2021-11-01] MEDS: MIDODRINE HCL 5 MG TABLET PO SCH (22:43)
[2021-11-02] MEDS ORDERED: BISACODYL 10 MG SUPP.RECT PR PRN (02:55)
[2021-11-02] MEDS: CEFEPIME 1 GM in DEXTROSE 5%-WATER 1 GM/100 ML BAG IVPB SCH ×2 (06:00→09:17)
[2021-11-02] MEDS: CARBIDOPA/LEVODOPA 25/250 TABLET (FP) PO SCH ×4 (07:26→17:22)
[2021-11-02] MEDS: FOLIC ACID 1 MG TABLET (FP) PO SCH (09:15)
[2021-11-02] MEDS: MIDODRINE HCL 5 MG TABLET PO SCH ×2 (09:15→17:22)
[2021-11-02] MEDS: ESCITALOPRAM OXALATE 10 MG TABLET PO SCH (09:15)
[2021-11-02] MEDS: PANTOPRAZOLE 40 MG TABLET PO SCH (09:15)
[2021-11-02] MEDS: ASCORBIC ACID 500 MG TABLET (FP) PO SCH (09:15)
[2021-11-02] MEDS: RIVAROXABAN 10 MG TABLET PO SCH (09:16)
[2021-11-02] MEDS: ALLOPURINOL 300 MG TABLET (FP) PO SCH (09:16)
[2021-11-02] MEDS ORDERED: FUROSEMIDE 40 MG/4 ML INJECTABLE VIAL IVPUSH ONE (13:24)
[2021-11-02] MEDS ORDERED: PIPERACILLIN/TAZOBACTAM 3.375 GM VIAL IVPB ONE (13:48)
[2021-11-02] MEDS ORDERED: DEXTROSE 5%-WATER - 50 ML IVPB ONE (13:49)
[2021-11-02] MEDS: PIPERACILLIN/TAZOB 3.375 GM 3.375 GM in DEXTROSE 5%-WATER - 50 ML IVPB SCH ×2 (13:50→17:22)
[2021-11-02] MEDS ORDERED: VANCOMYCIN 1 GM PREMIX - 1 GM/200 ML BAG IVPB SCH (18:00)
[2021-11-02] MEDS: ATORVASTATIN CA 20 MG TABLET (FP) PO SCH (22:02)
[2021-11-02] MEDS: QUEtiapine FUMARATE 100 MG TABLET (FP) PO SCH (22:07)
[2021-11-03] MEDS ORDERED: DEXTROSE 5%-WATER - 50 ML IVPB ONE ×3 (01:02→16:45)
[2021-11-03] MEDS ORDERED: PIPERACILLIN/TAZOBACTAM 3.375 GM VIAL IVPB ONE ×3 (01:02→16:45)
[2021-11-03] MEDS: PIPERACILLIN/TAZOB 3.375 GM 3.375 GM in DEXTROSE 5%-WATER - 50 ML IVPB SCH ×3 (01:12→16:59)
[2021-11-03] MEDS: CARBIDOPA/LEVODOPA 25/250 TABLET (FP) PO SCH ×4 (05:46→16:59)
[2021-11-03] MEDS: PANTOPRAZOLE 40 MG TABLET PO SCH (09:56)
[2021-11-03] MEDS: MIDODRINE HCL 5 MG TABLET PO SCH ×2 (09:56→16:59)
[2021-11-03] MEDS: FOLIC ACID 1 MG TABLET (FP) PO SCH (09:56)
[2021-11-03] MEDS: ASCORBIC ACID 500 MG TABLET (FP) PO SCH (09:56)
[2021-11-03] MEDS: ESCITALOPRAM OXALATE 10 MG TABLET PO SCH (09:56)
[2021-11-03] MEDS: ALLOPURINOL 300 MG TABLET (FP) PO SCH (09:57)
[2021-11-03] MEDS: RIVAROXABAN 10 MG TABLET PO SCH (09:57)
[2021-11-03 10:21] LABS: BASO % 0.9 % (0-2.0); EOS % 1.1 % (0-4.5); HEMATOCRIT 27.6 % (35.4-49); HEMOGLOBIN 8.6 GM/dL (11.7-16.9); LYMPH % 12.8 % (8-40); MCH 25.1 pg (25.7-33.7); MCHC 31.1 g/dl (32.0-35.9); MEAN CELL VOLUME 80.8 fl (80-96); MEAN PLT VOLUME 12.3 fl (7.5-11.1); MONO % 10.6 % (3.8-10.2); NEUT % 74.6 % (42.8-82.8); PLATELET COUNT 229 10^3/uL (134-434); RBC 3.41 M/mm3 (4.00-5.60); RDW 20.5 % (11.9-15.9); WHITE BLOOD COUNT 10.1 K/mm3 (4.0-10.0)
[2021-11-03 10:41] LABS: BLOOD UREA NITROGEN 54.2 mg/dL (7-18); CALCIUM 8.8 mg/dL (8.5-10.1); MAGNESIUM 2.3 mg/dL (1.8-2.4)
[2021-11-03 10:42] LABS: ALBUMIN 2.6 g/dl (3.4-5.0)
[2021-11-03 10:44] LABS: PHOSPHOROUS 4.1 mg/dL (2.5-4.9)
[2021-11-03 10:45] LABS: CREATININE 1.8 mg/dL (0.55-1.3); TOT PROT 5.8 g/dl (6.4-8.2)
[2021-11-03 10:46] LABS: BILIRUBIN,TOTAL 1.3 mg/dL (0.2-1)
[2021-11-03 11:59] LABS: ANISOCYTOSIS 0; MACROCYTOSIS 0; PLATELET ESTIMATE NORMAL
[2021-11-03] MEDS: AMINO ACIDS/PROTEIN HYDROLYS 30 ML LIQUID.PKT PO SCH (16:58)
[2021-11-03] MEDS: QUEtiapine FUMARATE 100 MG TABLET (FP) PO SCH (21:05)
[2021-11-03] MEDS: ATORVASTATIN CA 20 MG TABLET (FP) PO SCH (21:05)
[2021-11-04] MEDS ORDERED: DEXTROSE 5%-WATER - 50 ML IVPB ONE ×3 (01:08→17:06)
[2021-11-04] MEDS ORDERED: PIPERACILLIN/TAZOBACTAM 3.375 GM VIAL IVPB ONE ×3 (01:08→17:06)
[2021-11-04] MEDS: PIPERACILLIN/TAZOB 3.375 GM 3.375 GM in DEXTROSE 5%-WATER - 50 ML IVPB SCH ×3 (01:22→18:04)
[2021-11-04] MEDS: CARBIDOPA/LEVODOPA 25/250 TABLET (FP) PO SCH ×4 (05:53→17:20)
[2021-11-04 08:16] LABS: ALBUMIN 2.4 g/dl (3.4-5.0); BLOOD UREA NITROGEN 48.4 mg/dL (7-18); CALCIUM 8.2 mg/dL (8.5-10.1); CREATININE 1.8 mg/dL (0.55-1.3)
[2021-11-04 08:18] LABS: TOT PROT 5.5 g/dl (6.4-8.2)
[2021-11-04] MEDS: AMINO ACIDS/PROTEIN HYDROLYS 30 ML LIQUID.PKT PO SCH ×2 (08:54→17:20)
[2021-11-04] MEDS: ESCITALOPRAM OXALATE 10 MG TABLET PO SCH (10:56)
[2021-11-04] MEDS: FOLIC ACID 1 MG TABLET (FP) PO SCH (10:56)
[2021-11-04] MEDS: PANTOPRAZOLE 40 MG TABLET PO SCH (10:56)
[2021-11-04] MEDS: MIDODRINE HCL 5 MG TABLET PO SCH ×2 (10:57→17:20)
[2021-11-04] MEDS: ASCORBIC ACID 500 MG TABLET (FP) PO SCH (10:57)
[2021-11-04] MEDS: ALLOPURINOL 300 MG TABLET (FP) PO SCH (10:58)
[2021-11-04] MEDS: RIVAROXABAN 10 MG TABLET PO SCH (11:00)
[2021-11-04] MEDS ORDERED: KCL 10 MEQ IVPB 10 MEQ/100 ML INFUS.BAG IVPB SCH ×2 (14:00→14:15)
[2021-11-04] MEDS ORDERED: SODIUM CHLORIDE 250 ML IV STA (14:03)
[2021-11-04] MEDS: ATORVASTATIN CA 20 MG TABLET (FP) PO SCH (22:52)
[2021-11-04] MEDS: QUEtiapine FUMARATE 100 MG TABLET (FP) PO SCH (22:52)
[2021-11-05] MEDS ORDERED: PIPERACILLIN/TAZOBACTAM 3.375 GM VIAL IVPB ONE ×3 (01:20→17:57)
[2021-11-05] MEDS ORDERED: DEXTROSE 5%-WATER - 50 ML IVPB ONE ×3 (01:21→17:57)
[2021-11-05] MEDS: PIPERACILLIN/TAZOB 3.375 GM 3.375 GM in DEXTROSE 5%-WATER - 50 ML IVPB SCH ×3 (01:39→18:22)
[2021-11-05] MEDS: CARBIDOPA/LEVODOPA 25/250 TABLET (FP) PO SCH ×4 (06:33→18:22)
[2021-11-05] MEDS: CEFEPIME HCL/D5W 1 GM/50 ML BAG IVPB SCH ×2 (07:21→07:22)
[2021-11-05] MEDS: PATIENT'S OWN MEDICATION (NON-FORMULARY) (Mirabegron [Myrbetriq] 50 MG Tab.Er.24h) PO SCH ×2 (07:22→08:03)
[2021-11-05] MEDS: AMINO ACIDS/PROTEIN HYDROLYS 30 ML LIQUID.PKT PO SCH ×2 (08:58→18:21)
[2021-11-05] MEDS: FOLIC ACID 1 MG TABLET (FP) PO SCH (09:02)
[2021-11-05] MEDS: ESCITALOPRAM OXALATE 10 MG TABLET PO SCH (09:02)
[2021-11-05] MEDS: ASCORBIC ACID 500 MG TABLET (FP) PO SCH (09:03)
[2021-11-05] MEDS: MIDODRINE HCL 5 MG TABLET PO SCH ×2 (09:03→18:22)
[2021-11-05] MEDS: PANTOPRAZOLE 40 MG TABLET PO SCH (09:03)
[2021-11-05] MEDS: RIVAROXABAN 10 MG TABLET PO SCH (09:04)
[2021-11-05 09:05] LABS: HEMATOCRIT 26.1 % (35.4-49); HEMOGLOBIN 8.1 GM/dL (11.7-16.9); MCH 24.9 pg (25.7-33.7); MEAN CELL VOLUME 80.5 fl (80-96); MEAN PLT VOLUME 12.4 fl (7.5-11.1); PLATELET COUNT 209 10^3/uL (134-434); RBC 3.25 M/mm3 (4.00-5.60); WHITE BLOOD COUNT 11.8 K/mm3 (4.0-10.0)
[2021-11-05] MEDS: ALLOPURINOL 300 MG TABLET (FP) PO SCH (09:05)
[2021-11-05 09:07] LABS: INR 2.96 (0.83-1.09); PROTHROMBIN TIME (PATIENT) 34.4 SEC (9.7-13.0)
[2021-11-05 09:25] LABS: ALBUMIN 2.6 g/dl (3.4-5.0); BLOOD UREA NITROGEN 46.2 mg/dL (7-18); CALCIUM 8.2 mg/dL (8.5-10.1)
[2021-11-05 09:28] LABS: CREATININE 1.8 mg/dL (0.55-1.3); MAGNESIUM 2.3 mg/dL (1.8-2.4)
[2021-11-05] MEDS ORDERED: ACETAMINOPHEN 325 MG TABLET (FP) PO PRN (15:13)
[2021-11-05] MEDS ORDERED: ACETAMINOPHEN 325 MG TABLET (FP) PO ONE (15:15)
[2021-11-05] MEDS: INSULIN SLIDING SCALE (NOVOLOG) 1 VIAL SQ SCH ×2 (17:01→21:08)
[2021-11-05] MEDS ORDERED: IRON SUCROSE INJECTION 300 MG in SODIUM CHLORIDE 235 ML IVPB ONE (21:07)
[2021-11-05] MEDS: QUEtiapine FUMARATE 100 MG TABLET (FP) PO SCH (21:08)
[2021-11-05] MEDS: ATORVASTATIN CA 20 MG TABLET (FP) PO SCH (21:10)
[2021-11-06] MEDS ORDERED: PIPERACILLIN/TAZOBACTAM 3.375 GM VIAL IVPB ONE ×3 (00:20→16:31)
[2021-11-06] MEDS ORDERED: DEXTROSE 5%-WATER - 50 ML IVPB ONE ×3 (00:20→16:31)
[2021-11-06] MEDS: PIPERACILLIN/TAZOB 3.375 GM 3.375 GM in DEXTROSE 5%-WATER - 50 ML IVPB SCH ×3 (02:05→17:00)
[2021-11-06] MEDS: CARBIDOPA/LEVODOPA 25/250 TABLET (FP) PO SCH ×4 (06:23→17:16)
[2021-11-06] MEDS: INSULIN SLIDING SCALE (NOVOLOG) 1 VIAL SQ SCH ×4 (06:24→22:30)
[2021-11-06] MEDS: AMINO ACIDS/PROTEIN HYDROLYS 30 ML LIQUID.PKT PO SCH ×2 (08:42→16:41)
[2021-11-06 08:53] LABS: HEMATOCRIT 26.1 % (35.4-49); HEMOGLOBIN 8.2 GM/dL (11.7-16.9); MCH 25.6 pg (25.7-33.7); MCHC 31.5 g/dl (32.0-35.9); MEAN CELL VOLUME 81.2 fl (80-96); PLATELET COUNT 182 10^3/uL (134-434); RBC 3.21 M/mm3 (4.00-5.60); RDW 20.7 % (11.9-15.9); WHITE BLOOD COUNT 10.7 K/mm3 (4.0-10.0)
[2021-11-06 09:11] LABS: BLOOD UREA NITROGEN 50.2 mg/dL (7-18); CALCIUM 8.8 mg/dL (8.5-10.1); MAGNESIUM 2.5 mg/dL (1.8-2.4)
[2021-11-06 09:15] LABS: CREATININE 1.7 mg/dL (0.55-1.3)
[2021-11-06] MEDS: RIVAROXABAN 10 MG TABLET PO SCH (09:26)
[2021-11-06] MEDS: ESCITALOPRAM OXALATE 10 MG TABLET PO SCH (09:27)
[2021-11-06] MEDS: MIDODRINE HCL 5 MG TABLET PO SCH ×2 (09:27→17:16)
[2021-11-06] MEDS: FOLIC ACID 1 MG TABLET (FP) PO SCH (09:28)
[2021-11-06] MEDS: PANTOPRAZOLE 40 MG TABLET PO SCH (09:28)
[2021-11-06] MEDS: ASCORBIC ACID 500 MG TABLET (FP) PO SCH (09:28)
[2021-11-06] MEDS: ALLOPURINOL 300 MG TABLET (FP) PO SCH (09:37)
[2021-11-06] MEDS ORDERED: INSULIN (NOVOLOG) ASPART 100 UNITS/ML 10ML VIAL ONE (11:22)
[2021-11-06] MEDS: COLLAGENASE CLOSTRIDIUM HIST. 30 GRAMS TUBE TP SCH (14:21)
[2021-11-06] MEDS: ATORVASTATIN CA 20 MG TABLET (FP) PO SCH (22:23)
[2021-11-06] MEDS: QUEtiapine FUMARATE 100 MG TABLET (FP) PO SCH (22:23)
[2021-11-07] MEDS ORDERED: DEXTROSE 5%-WATER - 50 ML IVPB ONE ×3 (02:14→17:05)
[2021-11-07] MEDS ORDERED: PIPERACILLIN/TAZOBACTAM 3.375 GM VIAL IVPB ONE ×3 (02:14→17:05)
[2021-11-07] MEDS: PIPERACILLIN/TAZOB 3.375 GM 3.375 GM in DEXTROSE 5%-WATER - 50 ML IVPB SCH ×3 (02:27→17:06)
[2021-11-07] MEDS: CARBIDOPA/LEVODOPA 25/250 TABLET (FP) PO SCH ×4 (07:09→17:10)
[2021-11-07] MEDS: INSULIN SLIDING SCALE (NOVOLOG) 1 VIAL SQ SCH ×4 (07:13→21:22)
[2021-11-07] MEDS: AMINO ACIDS/PROTEIN HYDROLYS 30 ML LIQUID.PKT PO SCH ×2 (08:51→17:06)
[2021-11-07] MEDS: RIVAROXABAN 10 MG TABLET PO SCH (10:42)
[2021-11-07] MEDS: MIDODRINE HCL 5 MG TABLET PO SCH ×2 (10:43→21:33)
[2021-11-07] MEDS: ASCORBIC ACID 500 MG TABLET (FP) PO SCH (10:43)
[2021-11-07] MEDS: ESCITALOPRAM OXALATE 10 MG TABLET PO SCH (10:43)
[2021-11-07] MEDS: FOLIC ACID 1 MG TABLET (FP) PO SCH (10:44)
[2021-11-07] MEDS: ALLOPURINOL 300 MG TABLET (FP) PO SCH (10:44)
[2021-11-07] MEDS: PANTOPRAZOLE 40 MG TABLET PO SCH (10:44)
[2021-11-07] MEDS: COLLAGENASE CLOSTRIDIUM HIST. 30 GRAMS TUBE TP SCH (12:37)
[2021-11-07] MEDS ORDERED: IRON SUCROSE INJECTION 300 MG in SODIUM CHLORIDE 235 ML IVPB ONE (16:00)
[2021-11-07] MEDS ORDERED: INSULIN (NOVOLOG) ASPART 100 UNITS/ML 10ML VIAL ONE (21:01)
[2021-11-07] MEDS: ATORVASTATIN CA 20 MG TABLET (FP) PO SCH (21:23)
[2021-11-07] MEDS: QUEtiapine FUMARATE 100 MG TABLET (FP) PO SCH (21:23)
[2021-11-08] MEDS ORDERED: DEXTROSE 5%-WATER - 50 ML IVPB ONE ×2 (00:25→10:25)
[2021-11-08] MEDS ORDERED: PIPERACILLIN/TAZOBACTAM 3.375 GM VIAL IVPB ONE ×2 (00:25→10:24)
[2021-11-08] MEDS: PIPERACILLIN/TAZOB 3.375 GM 3.375 GM in DEXTROSE 5%-WATER - 50 ML IVPB SCH ×2 (01:00→10:28)
[2021-11-08] MEDS: CARBIDOPA/LEVODOPA 25/250 TABLET (FP) PO SCH ×4 (05:42→17:04)
[2021-11-08] MEDS: INSULIN SLIDING SCALE (NOVOLOG) 1 VIAL SQ SCH ×3 (06:17→16:33)
[2021-11-08] MEDS: FOLIC ACID 1 MG TABLET (FP) PO SCH (10:29)
[2021-11-08] MEDS: MIDODRINE HCL 5 MG TABLET PO SCH ×2 (10:29→17:04)
[2021-11-08] MEDS: PANTOPRAZOLE 40 MG TABLET PO SCH (10:29)
[2021-11-08] MEDS: ASCORBIC ACID 500 MG TABLET (FP) PO SCH (10:29)
[2021-11-08] MEDS: AMINO ACIDS/PROTEIN HYDROLYS 30 ML LIQUID.PKT PO SCH ×2 (10:29→17:04)
[2021-11-08] MEDS: ESCITALOPRAM OXALATE 10 MG TABLET PO SCH (10:29)
[2021-11-08] MEDS: RIVAROXABAN 10 MG TABLET PO SCH (10:29)
[2021-11-08] MEDS: ALLOPURINOL 300 MG TABLET (FP) PO SCH (10:30)
[2021-11-08] MEDS: COLLAGENASE CLOSTRIDIUM HIST. 30 GRAMS TUBE TP SCH (10:40)
[2021-11-08 12:49] LABS: CALCIUM 8.3 mg/dL (8.5-10.1)
[2021-11-08 12:50] LABS: ALBUMIN 2.3 g/dl (3.4-5.0); BLOOD UREA NITROGEN 65.7 mg/dL (7-18)
[2021-11-08 12:51] LABS: BILIRUBIN,TOTAL 1.1 mg/dL (0.2-1)
[2021-11-08 12:52] LABS: CREATININE 2.4 mg/dL (0.55-1.3)
[2021-11-08 13:05] VITALS: BMI 23.4
[2021-11-08 14:53] VITALS: TEMP 97.8
[2021-11-08 15:07] VITALS: BP 127/74; PULSE 83
[2021-11-08 15:07] LABS: SARS-CoV-2 NAA Not Detected (Not Detected)
[2021-11-08] MEDS ORDERED: SODIUM CHLORIDE 0.45% 1,000 ML IV SCH (15:30)
== END 2021-11-08 17:59 | DRG 177 ==
LOC: JER 13:06 → JERBED 17:53 → J6S 23:45
PROVIDERS: ADMIT Internal Medicine; ATTEND Family Medicine
DX: J69.0 Pneumonitis due to inhalation of food and vomit (principal); L89.153 Pressure ulcer of sacral region, stage 3; I50.23 Acute on chronic systolic (congestive) heart failure; D68.8 Other specified coagulation defects; N17.9 Acute kidney failure, unspecified; N39.0 Urinary tract infection, site not specified; R78.81 Bacteremia; I13.0 Hypertensive heart and chronic kidney disease with heart failure and stage 1 through stage 4 chronic kidney disease, or unspecified chronic kidney disease; J44.0 Chronic obstructive pulmonary disease with (acute) lower respiratory infection; E11.22 Type 2 diabetes mellitus with diabetic chronic kidney disease; N18.9 Chronic kidney disease, unspecified; N40.0 Benign prostatic hyperplasia without lower urinary tract symptoms; E78.00 Pure hypercholesterolemia, unspecified; G20 Parkinson's disease; I25.10 Atherosclerotic heart disease of native coronary artery without angina pectoris; J44.9 Chronic obstructive pulmonary disease, unspecified; F02.80 Dementia in other diseases classified elsewhere, unspecified severity, without behavioral disturbance, psychotic disturbance, mood disturbance, and anxiety; F29 Unspecified psychosis not due to a substance or known physiological condition; D64.9 Anemia, unspecified; E87.5 Hyperkalemia; R32 Unspecified urinary incontinence; M10.9 Gout, unspecified; R26.81 Unsteadiness on feet; R13.10 Dysphagia, unspecified; Z86.73 Personal history of transient ischemic attack (TIA), and cerebral infarction without residual deficits; R50.9 Fever, unspecified; Z95.5 Presence of coronary angioplasty implant and graft; Z99.81 Dependence on supplemental oxygen; Z95.0 Presence of cardiac pacemaker
CPT/HCPCS: 36415; 70450-TC; 71045-TC-FY; 80048; 80053; 81003; 82272; 82728; 82803; 82962; 83540; 83550; 83735; 83880; 84100; 84484; 85025; 85027; 85610; 85730; 86850; 86900; 86901; 87040; 87077; 87086; 93005; 93010; 97161-GP; 99285-25; C9803-CS; J1756; U0003; U0005

== ENCOUNTER 2021-11-11 18:58 | Inpatient (IN) | payer OTHER, MEDICARE ==
[2021-11-11] MEDS ORDERED: ONDANSETRON 4 MG/2 ML VIAL IVPUSH ONE (21:16)
[2021-11-11] MEDS ORDERED: morphine SULFATE 4 MG/ML VIAL IVPUSH ONE (21:16)
[2021-11-11 21:32] LABS: BASO % 0.7 % (0-2.0); EOS % 2.1 % (0-4.5); HEMATOCRIT 31.5 % (35.4-49); HEMOGLOBIN 9.6 GM/dL (11.7-16.9); LYMPH % 10.8 % (8-40); MCH 25.6 pg (25.7-33.7); MCHC 30.5 g/dl (32.0-35.9); MEAN CELL VOLUME 83.9 fl (80-96); MEAN PLT VOLUME 11.8 fl (7.5-11.1); MONO % 7.6 % (3.8-10.2); NEUT % 78.8 % (42.8-82.8); PLATELET COUNT 256 10^3/uL (134-434); RBC 3.76 M/mm3 (4.00-5.60); RDW 21.7 % (11.9-15.9); WHITE BLOOD COUNT 13.2 K/mm3 (4.0-10.0)
[2021-11-11 21:45] LABS: INR 2.86 (0.83-1.09); PROTHROMBIN TIME (PATIENT) 33.2 SEC (9.7-13.0)
[2021-11-11 21:48] LABS: ACTIVATED PTT 38.8 SECONDS (25.2-36.5)
[2021-11-11 21:54] LABS: CHLORIDE 112 mmol/L (98-107); SODIUM 152 mmol/L (136-145)
[2021-11-11 21:56] LABS: ANION GAP 10 MMOL/L (8-16); BLOOD UREA NITROGEN 80.7 mg/dL (7-18); CALCIUM 8.2 mg/dL (8.5-10.1); CO2 30 mmol/L (21-32)
[2021-11-11 21:57] LABS: ALBUMIN 2.5 g/dl (3.4-5.0); GLUCOSE,RANDOM 198 mg/dL (74-106)
[2021-11-11 22:00] LABS: CREATININE 3.2 mg/dL (0.55-1.3); SGOT/AST 30 U/L (15-37); SGPT/ALT 32 U/L (13-61)
[2021-11-11 22:01] LABS: TOT PROT 6.5 g/dl (6.4-8.2)
[2021-11-11 22:02] LABS: ALK PHOS 129 U/L (45-117)
[2021-11-11 22:04] LABS: N-TERMINAL BNP 31690.9 pg/ml (5-450)
[2021-11-11 22:56] LABS: EPI CELLS 13 /uL (0-25.1); HYALINE CASTS 1 /uL (0-3.1); URINE APPEARANCE CLEAR; URINE BACTERIA 6 /uL (0-1359); URINE BILIRUBIN NEGATIVE (NEGATIVE); URINE COLOR YELLOW; URINE GLUCOSE (UA) NEGATIVE (NEGATIVE); URINE KETONE NEGATIVE (NEGATIVE); URINE LEUK ESTERASE 1+ (NEGATIVE); URINE NITRITE NEGATIVE (NEGATIVE); URINE PROTEIN 1+ (NEGATIVE); URINE UROBILINOGEN 0.2 mg/dL (0.2-1.0); URINE WBC 47 /uL (0-25.8)
[2021-11-11 23:19] LABS: CHLORIDE 114 mmol/L (98-107); SODIUM 154 mmol/L (136-145)
[2021-11-11 23:21] LABS: CALCIUM 8.2 mg/dL (8.5-10.1)
[2021-11-11 23:22] LABS: ALBUMIN 2.3 g/dl (3.4-5.0); ANION GAP 7 MMOL/L (8-16); BLOOD UREA NITROGEN 80.3 mg/dL (7-18); CO2 33 mmol/L (21-32); GLUCOSE,RANDOM 199 mg/dL (74-106)
[2021-11-11 23:25] LABS: CREATININE 3.2 mg/dL (0.55-1.3); SGOT/AST 18 U/L (15-37); SGPT/ALT 27 U/L (13-61)
[2021-11-11 23:27] LABS: BILIRUBIN,TOTAL 0.9 mg/dL (0.2-1); TOT PROT 5.9 g/dl (6.4-8.2)
[2021-11-11 23:28] LABS: ALK PHOS 117 U/L (45-117)
[2021-11-11] MEDS ORDERED: SODIUM CHLORIDE 0.9% 500 ML INFUS.BAG IV ONE (23:34)
[2021-11-11] MEDS ORDERED: CEFTRIAXONE 1 GM in DEXTROSE 5%-WATER - 100 ML IVPB ONE (23:40)
[2021-11-11 23:42] LABS: ANISOCYTOSIS 1+; MACROCYTOSIS 0
[2021-11-12] MEDS ORDERED: CEFTRIAXONE 1 GM/50 ML BAG ONE (01:16)
[2021-11-12] MEDS ORDERED: BISACODYL 10 MG SUPP.RECT PR PRN (01:58)
[2021-11-12] MEDS ORDERED: METOPROLOL TARTRATE 5 MG/5 ML VIAL IVPUSH ONE (04:28)
[2021-11-12 05:14] LABS: BASO % 0.8 % (0-2.0); EOS % 3.1 % (0-4.5); HEMATOCRIT 30.3 % (35.4-49); HEMOGLOBIN 9.1 GM/dL (11.7-16.9); LYMPH % 11.2 % (8-40); MCH 25.1 pg (25.7-33.7); MEAN CELL VOLUME 83.6 fl (80-96); MEAN PLT VOLUME 12.4 fl (7.5-11.1); MONO % 7.3 % (3.8-10.2); NEUT % 77.6 % (42.8-82.8); PLATELET COUNT 228 10^3/uL (134-434); RBC 3.63 M/mm3 (4.00-5.60); RDW 22.2 % (11.9-15.9); WHITE BLOOD COUNT 13.4 K/mm3 (4.0-10.0)
[2021-11-12 05:54] LABS: BLOOD UREA NITROGEN 83.6 mg/dL (7-18); CALCIUM 8.9 mg/dL (8.5-10.1); MAGNESIUM 2.9 mg/dL (1.8-2.4); PHOSPHOROUS 4.4 mg/dL (2.5-4.9)
[2021-11-12] MEDS: CARBIDOPA/LEVODOPA 25/250 TABLET (FP) PO SCH ×4 (06:28→19:09)
[2021-11-12] MEDS ORDERED: PATIENT'S OWN MEDICATION (NON-FORMULARY) (Mirabegron [Myrbetriq] 50 MG Tab.Er.24h) PO SCH (10:00)
[2021-11-12] MEDS ORDERED: ALBUTEROL SO4 2.5/IPRATROPIUM 0.5 INH SOL 3 ML VIAL.NEB. NEB SCH (10:00)
[2021-11-12] MEDS: ESCITALOPRAM OXALATE 10 MG TABLET PO SCH (10:42)
[2021-11-12] MEDS: MIDODRINE HCL 5 MG TABLET PO SCH ×2 (10:42→21:18)
[2021-11-12] MEDS: FERROUS SO4 325 MG TABLET (FP) PO SCH ×2 (10:43→21:18)
[2021-11-12] MEDS: ALLOPURINOL 300 MG TABLET (FP) PO SCH (10:44)
[2021-11-12] MEDS: ALBUTEROL SO4 2.5/IPRATROPIUM 0.5 INH SOL 3 ML VIAL.NEB. NEB SCH ×3 (11:30→20:40)
[2021-11-12] MEDS: POTASSIUM CHLORIDE 20 MEQ in DEXTROSE 5%-WATER - 1,000 ML IV SCH (15:48)
[2021-11-12] MEDS ORDERED: cefTRIAXone SODIUM 1 GM VIAL ONE (20:34)
[2021-11-12] MEDS ORDERED: DEXTROSE 5%-WATER - 50 ML IVPB ONE (20:35)
[2021-11-12] MEDS: ATORVASTATIN CA 20 MG TABLET (FP) PO SCH (21:18)
[2021-11-12] MEDS: CEFTRIAXONE 1 GM in DEXTROSE 5%-WATER - 50 ML IVPB SCH (21:18)
[2021-11-12] MEDS ORDERED: QUEtiapine FUMARATE 100 MG TABLET (FP) PO SCH (22:00)
[2021-11-12] MEDS: INSULIN SLIDING SCALE (NOVOLOG) 1 VIAL SQ SCH (22:32)
[2021-11-13] MEDS: CARBIDOPA/LEVODOPA 25/250 TABLET (FP) PO SCH ×4 (05:52→18:27)
[2021-11-13] MEDS: POTASSIUM CHLORIDE 20 MEQ in DEXTROSE 5%-WATER - 1,000 ML IV SCH ×3 (06:01→23:39)
[2021-11-13 07:15] LABS: BASO % 1.3 % (0-2.0); EOS % 3.4 % (0-4.5); HEMATOCRIT 25.2 % (35.4-49); HEMOGLOBIN 7.7 GM/dL (11.7-16.9); LYMPH % 13.7 % (8-40); MCHC 30.7 g/dl (32.0-35.9); MEAN CELL VOLUME 84.5 fl (80-96); MEAN PLT VOLUME 11.6 fl (7.5-11.1); MONO % 7.9 % (3.8-10.2); NEUT % 73.7 % (42.8-82.8); PLATELET COUNT 164 10^3/uL (134-434); RBC 2.99 M/mm3 (4.00-5.60); RDW 21.9 % (11.9-15.9); WHITE BLOOD COUNT 8.3 K/mm3 (4.0-10.0)
[2021-11-13 07:30] LABS: BLOOD UREA NITROGEN 73.4 mg/dL (7-18); CALCIUM 7.7 mg/dL (8.5-10.1)
[2021-11-13 07:34] LABS: CREATININE 2.8 mg/dL (0.55-1.3)
[2021-11-13 07:35] LABS: BILIRUBIN,TOTAL 0.7 mg/dL (0.2-1); TOT PROT 5.1 g/dl (6.4-8.2)
[2021-11-13] MEDS: ALBUTEROL SO4 2.5/IPRATROPIUM 0.5 INH SOL 3 ML VIAL.NEB. NEB SCH ×4 (08:36→20:05)
[2021-11-13] MEDS: ALLOPURINOL 300 MG TABLET (FP) PO SCH (10:05)
[2021-11-13] MEDS: ESCITALOPRAM OXALATE 10 MG TABLET PO SCH (10:05)
[2021-11-13] MEDS: MIDODRINE HCL 5 MG TABLET PO SCH ×2 (10:06→21:05)
[2021-11-13] MEDS: FERROUS SO4 325 MG TABLET (FP) PO SCH ×2 (10:06→21:05)
[2021-11-13] MEDS: PANTOPRAZOLE SODIUM 40 MG VIAL IVPUSH SCH ×2 (11:09→21:05)
[2021-11-13 15:49] LABS: HEMATOCRIT 27.8 % (35.4-49); HEMOGLOBIN 8.4 GM/dL (11.7-16.9); MCH 25.6 pg (25.7-33.7); MCHC 30.3 g/dl (32.0-35.9); MEAN CELL VOLUME 84.5 fl (80-96); MEAN PLT VOLUME 11.3 fl (7.5-11.1); PLATELET COUNT 170 10^3/uL (134-434); RBC 3.29 M/mm3 (4.00-5.60); RDW 22.8 % (11.9-15.9)
[2021-11-13] MEDS: AMINO ACIDS/PROTEIN HYDROLYS 30 ML LIQUID.PKT PO SCH (18:27)
[2021-11-13] MEDS: INSULIN SLIDING SCALE (NOVOLOG) 1 VIAL SQ SCH ×2 (18:27→22:02)
[2021-11-13] MEDS ORDERED: DEXTROSE 5%-WATER - 50 ML IVPB ONE (21:01)
[2021-11-13] MEDS ORDERED: cefTRIAXone SODIUM 1 GM VIAL ONE (21:01)
[2021-11-13] MEDS: CEFTRIAXONE 1 GM in DEXTROSE 5%-WATER - 50 ML IVPB SCH (21:05)
[2021-11-13] MEDS: ATORVASTATIN CA 20 MG TABLET (FP) PO SCH (21:05)
[2021-11-14 06:45] LABS: HEMATOCRIT 27.4 % (35.4-49); HEMOGLOBIN 8.3 GM/dL (11.7-16.9); MCH 25.6 pg (25.7-33.7); MCHC 30.2 g/dl (32.0-35.9); MEAN CELL VOLUME 84.8 fl (80-96); MEAN PLT VOLUME 11.6 fl (7.5-11.1); PLATELET COUNT 163 10^3/uL (134-434); RBC 3.23 M/mm3 (4.00-5.60); RDW 22.4 % (11.9-15.9)
[2021-11-14] MEDS: CARBIDOPA/LEVODOPA 25/250 TABLET (FP) PO SCH ×4 (06:46→17:36)
[2021-11-14] MEDS: INSULIN SLIDING SCALE (NOVOLOG) 1 VIAL SQ SCH ×4 (06:46→22:02)
[2021-11-14 07:03] LABS: ALBUMIN 2.1 g/dl (3.4-5.0); BLOOD UREA NITROGEN 60.6 mg/dL (7-18)
[2021-11-14 07:06] LABS: CREATININE 2.6 mg/dL (0.55-1.3)
[2021-11-14 07:08] LABS: BILIRUBIN,TOTAL 0.6 mg/dL (0.2-1); TOT PROT 5.3 g/dl (6.4-8.2)
[2021-11-14] MEDS: ALBUTEROL SO4 2.5/IPRATROPIUM 0.5 INH SOL 3 ML VIAL.NEB. NEB SCH ×4 (07:59→20:20)
[2021-11-14] MEDS: PIMAVANSERIN 34 MG PO SCH (09:48)
[2021-11-14] MEDS: AMINO ACIDS/PROTEIN HYDROLYS 30 ML LIQUID.PKT PO SCH ×2 (09:49→17:36)
[2021-11-14] MEDS: ASCORBIC ACID 500 MG TABLET (FP) PO SCH (09:55)
[2021-11-14] MEDS: MULTIVITAMINS (DAILY MVI) TABLET (FP) PO SCH (09:55)
[2021-11-14] MEDS: ALLOPURINOL 300 MG TABLET (FP) PO SCH (09:55)
[2021-11-14] MEDS: ESCITALOPRAM OXALATE 10 MG TABLET PO SCH (09:56)
[2021-11-14] MEDS: FERROUS SO4 325 MG TABLET (FP) PO SCH ×2 (09:57→22:03)
[2021-11-14] MEDS: MIDODRINE HCL 5 MG TABLET PO SCH ×2 (09:57→22:03)
[2021-11-14] MEDS: PANTOPRAZOLE SODIUM 40 MG VIAL IVPUSH SCH (09:57)
[2021-11-14] MEDS: POTASSIUM CHLORIDE 20 MEQ in DEXTROSE 5%-WATER - 1,000 ML IV SCH (11:20)
[2021-11-14] MEDS: ATORVASTATIN CA 20 MG TABLET (FP) PO SCH (22:03)
[2021-11-15] MEDS: PIMAVANSERIN 34 MG PO SCH (06:28)
[2021-11-15] MEDS: CARBIDOPA/LEVODOPA 25/250 TABLET (FP) PO SCH ×4 (06:30→18:00)
[2021-11-15] MEDS: POTASSIUM CHLORIDE 20 MEQ in DEXTROSE 5%-WATER - 1,000 ML IV SCH (06:32)
[2021-11-15] MEDS: INSULIN SLIDING SCALE (NOVOLOG) 1 VIAL SQ SCH ×4 (06:32→22:24)
[2021-11-15] MEDS: AMINO ACIDS/PROTEIN HYDROLYS 30 ML LIQUID.PKT PO SCH ×2 (08:15→17:30)
[2021-11-15] MEDS: ALBUTEROL SO4 2.5/IPRATROPIUM 0.5 INH SOL 3 ML VIAL.NEB. NEB SCH ×4 (08:30→20:44)
[2021-11-15] MEDS: ASCORBIC ACID 500 MG TABLET (FP) PO SCH (09:32)
[2021-11-15] MEDS: MIDODRINE HCL 5 MG TABLET PO SCH ×2 (09:32→22:22)
[2021-11-15] MEDS: MULTIVITAMINS (DAILY MVI) TABLET (FP) PO SCH (09:32)
[2021-11-15] MEDS: ALLOPURINOL 300 MG TABLET (FP) PO SCH (09:33)
[2021-11-15] MEDS: FERROUS SO4 325 MG TABLET (FP) PO SCH ×2 (09:33→22:24)
[2021-11-15] MEDS: ESCITALOPRAM OXALATE 10 MG TABLET PO SCH (09:34)
[2021-11-15 21:59] LABS: CALCIUM 8.3 mg/dL (8.5-10.1)
[2021-11-15 22:01] LABS: ALBUMIN 2.5 g/dl (3.4-5.0); BLOOD UREA NITROGEN 66.4 mg/dL (7-18); MAGNESIUM 2.6 mg/dL (1.8-2.4)
[2021-11-15 22:03] LABS: CREATININE 2.3 mg/dL (0.55-1.3)
[2021-11-15 22:05] LABS: BILIRUBIN,TOTAL 0.6 mg/dL (0.2-1)
[2021-11-15] MEDS: ATORVASTATIN CA 20 MG TABLET (FP) PO SCH (22:22)
[2021-11-16] MEDS: INSULIN SLIDING SCALE (NOVOLOG) 1 VIAL SQ SCH ×4 (06:24→21:46)
[2021-11-16] MEDS: CARBIDOPA/LEVODOPA 25/250 TABLET (FP) PO SCH ×4 (06:25→18:32)
[2021-11-16] MEDS: PIMAVANSERIN 34 MG PO SCH (06:25)
[2021-11-16 07:33] LABS: CALCIUM 8.5 mg/dL (8.5-10.1)
[2021-11-16 07:35] LABS: ALBUMIN 2.3 g/dl (3.4-5.0); BLOOD UREA NITROGEN 69.6 mg/dL (7-18)
[2021-11-16 07:37] LABS: CREATININE 2.3 mg/dL (0.55-1.3)
[2021-11-16] MEDS: ALBUTEROL SO4 2.5/IPRATROPIUM 0.5 INH SOL 3 ML VIAL.NEB. NEB SCH ×4 (07:38→21:00)
[2021-11-16 07:39] LABS: BILIRUBIN,TOTAL 0.6 mg/dL (0.2-1); TOT PROT 5.5 g/dl (6.4-8.2)
[2021-11-16] MEDS: MIDODRINE HCL 5 MG TABLET PO SCH ×2 (09:53→21:47)
[2021-11-16] MEDS: ESCITALOPRAM OXALATE 10 MG TABLET PO SCH (09:53)
[2021-11-16] MEDS: MULTIVITAMINS (DAILY MVI) TABLET (FP) PO SCH (09:53)
[2021-11-16] MEDS: ALLOPURINOL 300 MG TABLET (FP) PO SCH (09:53)
[2021-11-16] MEDS: FERROUS SO4 325 MG TABLET (FP) PO SCH ×2 (09:53→21:47)
[2021-11-16] MEDS: AMINO ACIDS/PROTEIN HYDROLYS 30 ML LIQUID.PKT PO SCH ×2 (09:53→18:32)
[2021-11-16] MEDS: ASCORBIC ACID 500 MG TABLET (FP) PO SCH (09:53)
[2021-11-16] MEDS: RIVAROXABAN 10 MG TABLET PO SCH (18:32)
[2021-11-16] MEDS: ATORVASTATIN CA 20 MG TABLET (FP) PO SCH (21:47)
[2021-11-17] MEDS: PIMAVANSERIN 34 MG PO SCH (06:23)
[2021-11-17] MEDS: CARBIDOPA/LEVODOPA 25/250 TABLET (FP) PO SCH ×4 (06:23→18:12)
[2021-11-17] MEDS: INSULIN SLIDING SCALE (NOVOLOG) 1 VIAL SQ SCH ×4 (06:23→22:42)
[2021-11-17 07:32] LABS: BASO % 0.8 % (0-2.0); EOS % 3.4 % (0-4.5); HEMATOCRIT 27.1 % (35.4-49); HEMOGLOBIN 8.3 GM/dL (11.7-16.9); MCH 25.9 pg (25.7-33.7); MCHC 30.7 g/dl (32.0-35.9); MEAN CELL VOLUME 84.4 fl (80-96); MEAN PLT VOLUME 11.9 fl (7.5-11.1); MONO % 5.8 % (3.8-10.2); PLATELET COUNT 157 10^3/uL (134-434); RBC 3.22 M/mm3 (4.00-5.60); RDW 22.7 % (11.9-15.9); WHITE BLOOD COUNT 8.1 K/mm3 (4.0-10.0)
[2021-11-17] MEDS: AMINO ACIDS/PROTEIN HYDROLYS 30 ML LIQUID.PKT PO SCH ×2 (08:29→18:12)
[2021-11-17 09:36] LABS: ANISOCYTOSIS 1+; MACROCYTOSIS 2+
[2021-11-17 09:38] LABS: PLATELET ESTIMATE ADEQUATE
[2021-11-17] MEDS: ESCITALOPRAM OXALATE 10 MG TABLET PO SCH (09:40)
[2021-11-17] MEDS: FERROUS SO4 325 MG TABLET (FP) PO SCH ×2 (09:40→22:42)
[2021-11-17] MEDS: MULTIVITAMINS (DAILY MVI) TABLET (FP) PO SCH (09:41)
[2021-11-17] MEDS: MIDODRINE HCL 5 MG TABLET PO SCH ×2 (09:41→22:42)
[2021-11-17] MEDS: ALLOPURINOL 300 MG TABLET (FP) PO SCH (09:41)
[2021-11-17] MEDS: ASCORBIC ACID 500 MG TABLET (FP) PO SCH (09:41)
[2021-11-17] MEDS: ALBUTEROL SO4 2.5/IPRATROPIUM 0.5 INH SOL 3 ML VIAL.NEB. NEB SCH (10:30)
[2021-11-17 11:59] VITALS: BMI 22.6
[2021-11-17] MEDS: RIVAROXABAN 10 MG TABLET PO SCH (18:12)
[2021-11-17] MEDS: ATORVASTATIN CA 20 MG TABLET (FP) PO SCH (22:42)
[2021-11-18] MEDS: CARBIDOPA/LEVODOPA 25/250 TABLET (FP) PO SCH ×4 (05:59→18:18)
[2021-11-18] MEDS: PIMAVANSERIN 34 MG PO SCH (05:59)
[2021-11-18] MEDS: INSULIN SLIDING SCALE (NOVOLOG) 1 VIAL SQ SCH ×3 (06:06→16:57)
[2021-11-18] MEDS: AMINO ACIDS/PROTEIN HYDROLYS 30 ML LIQUID.PKT PO SCH ×2 (08:58→16:57)
[2021-11-18] MEDS: ESCITALOPRAM OXALATE 10 MG TABLET PO SCH (09:10)
[2021-11-18] MEDS: ALLOPURINOL 300 MG TABLET (FP) PO SCH (09:11)
[2021-11-18] MEDS: MIDODRINE HCL 5 MG TABLET PO SCH (09:11)
[2021-11-18] MEDS: MULTIVITAMINS (DAILY MVI) TABLET (FP) PO SCH (09:11)
[2021-11-18] MEDS: FERROUS SO4 325 MG TABLET (FP) PO SCH (09:11)
[2021-11-18] MEDS: ASCORBIC ACID 500 MG TABLET (FP) PO SCH (09:11)
[2021-11-18 17:33] VITALS: BP 110/58; PULSE 70; TEMP 98.1
[2021-11-18] MEDS: RIVAROXABAN 10 MG TABLET PO SCH (18:18)
== END 2021-11-18 19:00 | DRG 682 ==
LOC: JER 18:58 → JERBED 22:43 → J2W 11-12 03:43
PROVIDERS: ADMIT Hospitalist; ATTEND Family Medicine
DX: N17.9 Acute kidney failure, unspecified (principal); L89.153 Pressure ulcer of sacral region, stage 3; E43 Unspecified severe protein-calorie malnutrition; I13.0 Hypertensive heart and chronic kidney disease with heart failure and stage 1 through stage 4 chronic kidney disease, or unspecified chronic kidney disease; E87.0 Hyperosmolality and hypernatremia; N39.0 Urinary tract infection, site not specified; I50.22 Chronic systolic (congestive) heart failure; G20 Parkinson's disease; J44.9 Chronic obstructive pulmonary disease, unspecified; Z86.16 Personal history of COVID-19; K21.9 Gastro-esophageal reflux disease without esophagitis; N18.9 Chronic kidney disease, unspecified; M10.9 Gout, unspecified; I48.91 Unspecified atrial fibrillation; E11.22 Type 2 diabetes mellitus with diabetic chronic kidney disease; Z79.4 Long term (current) use of insulin; I25.10 Atherosclerotic heart disease of native coronary artery without angina pectoris; Z95.0 Presence of cardiac pacemaker; N40.0 Benign prostatic hyperplasia without lower urinary tract symptoms; F32.A Depression, unspecified; D64.9 Anemia, unspecified; E86.0 Dehydration; E87.8 Other disorders of electrolyte and fluid balance, not elsewhere classified; Z68.24 Body mass index [BMI] 24.0-24.9, adult; E11.65 Type 2 diabetes mellitus with hyperglycemia; R77.8 Other specified abnormalities of plasma proteins
CPT/HCPCS: 36415; 70450-TC; 71045-TC-FY; 80048; 80053; 81003; 82550; 82728; 82962; 83540; 83550; 83605; 83735; 83880; 84100; 84484; 85025; 85027; 85610; 85730; 86850; 86900; 86901; 87077; 87086; 93005; 93010; 94640; 99285-25; C9803-CS; U0003; U0005

== ENCOUNTER 2022-02-14 13:52 | Inpatient (IN) | payer OTHER, MEDICARE ==
[2022-02-14] MEDS ORDERED: CALCIUM GLUCONATE 10% - 1,000 MG/10 ML VIAL ONE ×2 (14:02→14:03)
[2022-02-14] MEDS ORDERED: MIDAZOLAM IN 0.9 % SOD.CHLORID 1 MG/1 ML PLAST..BAG ONE (14:05)
[2022-02-14] MEDS ORDERED: MIDAZOLAM HCL 2 MG/2 ML SINGLE DOSE VIAL ONE (14:06)
[2022-02-14] MEDS ORDERED: CALCIUM GLUCONATE 10% - 1,000 MG/10 ML VIAL IVPUSH ONE ×2 (14:18→16:32)
[2022-02-14] MEDS ORDERED: MIDAZOLAM HCL 2 MG/2 ML SINGLE DOSE VIAL IVPUSH ONE (14:19)
[2022-02-14] MEDS ORDERED: MIDAZOLAM IN 0.9 % SOD.CHLORID 100 MG/100 ML PLAST..BAG IVPB SCH (14:30)
[2022-02-14] MEDS ORDERED: ACETAMINOPHEN 1000 MG/100 ML BAG IVPB PRN (14:39)
[2022-02-14] MEDS ORDERED: SODIUM BICARBONATE 8.4% 50 MEQ/50 ML DISP.SYRIN IVPUSH ONE (15:07)
[2022-02-14 15:54] LABS: CHLORIDE 104 mmol/L (98-107); SODIUM 139 mmol/L (136-145)
[2022-02-14 15:56] LABS: CALCIUM 8.5 mg/dL (8.5-10.1)
[2022-02-14 15:57] LABS: ALBUMIN 2.9 g/dl (3.4-5.0); CO2 30 mmol/L (21-32); GLUCOSE,RANDOM 93 mg/dL (74-106)
[2022-02-14 16:00] LABS: SGOT/AST 20 U/L (15-37); SGPT/ALT 7 U/L (13-61)
[2022-02-14 16:01] LABS: BILIRUBIN,TOTAL 0.6 mg/dL (0.2-1); CREATININE 3.3 mg/dL (0.55-1.3)
[2022-02-14 16:02] LABS: TOT PROT 5.8 g/dl (6.4-8.2)
[2022-02-14 16:03] LABS: ALK PHOS 155 U/L (45-117)
[2022-02-14 16:06] LABS: LACTIC ACID 2.9 mmol/L (0.4-2.0)
[2022-02-14 16:23] LABS: ANION GAP 6 MMOL/L (8-16); N-TERMINAL BNP 38776.5 pg/ml (5-450)
[2022-02-14] MEDS ORDERED: DEXTROSE 50%-WATER - 25 GM/50 ML VIAL IVPUSH ONE (16:31)
[2022-02-14] MEDS ORDERED: INSULIN REGULAR HUMAN 100 UNITS/ML *VIAL IVPUSH ONE (16:32)
[2022-02-14] MEDS: SODIUM CHLORIDE 1,000 ML IV SCH ×3 (18:00→23:54)
[2022-02-14] MEDS ORDERED: DEXTROSE 50%-WATER 25 GM/50 ML DISP.SYRIN ONE (18:23)
[2022-02-14] MEDS ORDERED: SODIUM CHLORIDE 500 ML IV STA (22:35)
[2022-02-14] MEDS ORDERED: VASOPRESSIN 40 UNITS/100 ML BAG IV SCH (23:30)
[2022-02-15] MEDS ORDERED: SODIUM CHLORIDE 500 ML IV STA (00:05)
[2022-02-15] MEDS: VASOPRESSIN 40 UNITS/100 ML BAG IV SCH (01:02)
[2022-02-15] MEDS: NOREPINEPHRINE BITARTRATE 16,000 MCG in SODIUM CHLORIDE 484 ML IV SCH (02:59)
[2022-02-15 04:05] LABS: BASO % 0.2 % (0-2.0); EOS % 0.1 % (0-4.5); HEMATOCRIT 29.9 % (35.4-49); HEMOGLOBIN 9.3 GM/dL (11.7-16.9); LYMPH % 8.6 % (8-40); MCH 26.7 pg (25.7-33.7); MCHC 31.1 g/dl (32.0-35.9); MEAN CELL VOLUME 85.9 fl (80-96); MONO % 7.4 % (3.8-10.2); NEUT % 83.7 % (42.8-82.8); RBC 3.48 M/mm3 (4.00-5.60); RDW 22.6 % (11.9-15.9); WHITE BLOOD COUNT 8.9 K/mm3 (4.0-10.0)
[2022-02-15 04:18] LABS: CHLORIDE 106 mmol/L (98-107); SODIUM 141 mmol/L (136-145)
[2022-02-15 04:20] LABS: CALCIUM 8.1 mg/dL (8.5-10.1); GLUCOSE,RANDOM 66 mg/dL (74-106)
[2022-02-15 04:21] LABS: BLOOD UREA NITROGEN 70.4 mg/dL (7-18); CO2 28 mmol/L (21-32); MAGNESIUM 2.4 mg/dL (1.8-2.4)
[2022-02-15 04:23] LABS: CREATININE 3.4 mg/dL (0.55-1.3)
[2022-02-15 04:24] LABS: PHOSPHOROUS 4.9 mg/dL (2.5-4.9); SGOT/AST 17 U/L (15-37)
[2022-02-15 04:25] LABS: BILIRUBIN,TOTAL 0.8 mg/dL (0.2-1); TOT PROT 4.6 g/dl (6.4-8.2)
[2022-02-15 04:35] LABS: ALBUMIN 2.1 g/dl (3.4-5.0); ALK PHOS 107 U/L (45-117); ANION GAP 7 MMOL/L (8-16); LACTIC ACID 2.3 mmol/L (0.4-2.0); SGPT/ALT < 6 U/L (13-61)
[2022-02-15] MEDS ORDERED: CALCIUM GLUCONATE 10% - 1,000 MG/10 ML VIAL IVPUSH ONE (05:45)
[2022-02-15] MEDS ORDERED: INSULIN REGULAR HUMAN 100 UNITS/ML *VIAL IVPUSH ONE (05:45)
[2022-02-15] MEDS ORDERED: DEXTROSE 50%-WATER - 25 GM/50 ML VIAL IVPUSH ONE (05:45)
[2022-02-15] MEDS ORDERED: ALBUTEROL SO4 0.5 % INH SOLN 2.5 MG/0.5 ML VIAL.NEB. NEB ONE (05:45)
[2022-02-15 06:36] LABS: ANISOCYTOSIS 2+; MACROCYTOSIS 2+; PLATELET ESTIMATE PLTU; ROULEAU 1+
[2022-02-15 06:49] LABS: PLATELET COUNT 198 10^3/uL (134-434)
[2022-02-15] MEDS ORDERED: DEXTROSE 50%-WATER 25 GM/50 ML DISP.SYRIN ONE (08:04)
[2022-02-15] MEDS: SODIUM ZIRCONIUM CYCLOSILICATE (LOKELMA) 5 GM PACKET PO SCH ×2 (08:09→09:36)
[2022-02-15] MEDS: SCOPOLAMINE HYDROBROMIDE 1 PATCH PATCH.TD72 TD SCH (09:36)
[2022-02-15] MEDS ORDERED: VANCOMYCIN/WATER 1,250 MG/250 ML BAG IVPB STA (13:52)
[2022-02-15] MEDS ORDERED: PIPERACILLIN/TAZOB 3.375 GM 3.375 GM in DEXTROSE 5%-WATER - 50 ML IVPB ONE (14:09)
[2022-02-15] MEDS ORDERED: PIPERACILLIN/TAZOB 2.25 GM 2.25 GM in DEXTROSE 5%-WATER - 50 ML IVPB ONE (14:42)
[2022-02-15] MEDS: SODIUM CHLORIDE 1,000 ML IV SCH (16:39)
[2022-02-15] MEDS ORDERED: DEXTROSE 5%-WATER - 50 ML IVPB ONE (16:43)
[2022-02-15] MEDS ORDERED: PIPERACILLIN/TAZOBACTAM 2.25 GM VIAL IVPB ONE (16:43)
[2022-02-15] MEDS ORDERED: PIPERACILLIN/TAZOB 3.375 GM 3.375 GM in DEXTROSE 5%-WATER - 50 ML IVPB SCH (22:00)
[2022-02-16] MEDS ORDERED: PIPERACILLIN/TAZOBACTAM 2.25 GM VIAL IVPB ONE ×2 (01:23→07:54)
[2022-02-16] MEDS ORDERED: DEXTROSE 5%-WATER - 50 ML IVPB ONE ×2 (01:23→07:55)
[2022-02-16] MEDS: SODIUM CHLORIDE 1,000 ML IV SCH ×2 (01:29→09:37)
[2022-02-16] MEDS: NOREPINEPHRINE BITARTRATE 16,000 MCG in SODIUM CHLORIDE 484 ML IV SCH (01:29)
[2022-02-16] MEDS: PIPERACILLIN/TAZOB 2.25 GM 2.25 GM in DEXTROSE 5%-WATER - 50 ML IVPB SCH ×2 (01:30→09:30)
[2022-02-16] MEDS: VASOPRESSIN 40 UNITS/100 ML BAG IV SCH ×2 (09:29→20:58)
[2022-02-16] MEDS: SODIUM ZIRCONIUM CYCLOSILICATE (LOKELMA) 5 GM PACKET PO SCH (09:30)
[2022-02-17] MEDS: SODIUM CHLORIDE 1,000 ML IV SCH ×4 (00:16→23:05)
[2022-02-17] MEDS: NOREPINEPHRINE BITARTRATE 16,000 MCG in SODIUM CHLORIDE 484 ML IV SCH ×2 (01:10→04:50)
[2022-02-17] MEDS: VASOPRESSIN 40 UNITS/100 ML BAG IV SCH (01:10)
[2022-02-17 08:04] LABS: HEMATOCRIT 30.8 % (35.4-49); HEMOGLOBIN 9.6 GM/dL (11.7-16.9); MCHC 31.1 g/dl (32.0-35.9); MEAN CELL VOLUME 83.8 fl (80-96); MEAN PLT VOLUME 10.9 fl (7.5-11.1); PLATELET COUNT 180 10^3/uL (134-434); RBC 3.68 M/mm3 (4.00-5.60); RDW 22.9 % (11.9-15.9); WHITE BLOOD COUNT 29.1 K/mm3 (4.0-10.0)
[2022-02-17 08:09] LABS: CHLORIDE 105 mmol/L (98-107); SODIUM 141 mmol/L (136-145)
[2022-02-17 08:10] LABS: CALCIUM 8.4 mg/dL (8.5-10.1)
[2022-02-17 08:11] LABS: BLOOD UREA NITROGEN 87.9 mg/dL (7-18); CO2 21 mmol/L (21-32); GLUCOSE,RANDOM 92 mg/dL (74-106); MAGNESIUM 2.6 mg/dL (1.8-2.4)
[2022-02-17 08:14] LABS: PHOSPHOROUS 6.4 mg/dL (2.5-4.9)
[2022-02-17 08:21] LABS: ANION GAP 15 MMOL/L (8-16)
[2022-02-17] MEDS ORDERED: CALCIUM GLUCONATE 10% - 1,000 MG/10 ML VIAL IVPUSH ONE (09:00)
[2022-02-17] MEDS ORDERED: ALBUTEROL SO4 0.5 % INH SOLN 2.5 MG/0.5 ML VIAL.NEB. NEB ONE (09:00)
[2022-02-17] MEDS ORDERED: DEXTROSE 50%-WATER 25 GM/50 ML DISP.SYRIN IVPUSH ONE (09:00)
[2022-02-17] MEDS ORDERED: INSULIN REGULAR HUMAN 100 UNITS/ML *VIAL IVPUSH ONE (09:00)
[2022-02-17] MEDS: SODIUM ZIRCONIUM CYCLOSILICATE (LOKELMA) 5 GM PACKET PO SCH (09:44)
[2022-02-17] MEDS ORDERED: DEXTROSE 50%-WATER 25 GM/50 ML DISP.SYRIN ONE (09:46)
[2022-02-17 10:04] LABS: LACTIC ACID 4.8 mmol/L (0.4-2.0)
[2022-02-17] MEDS ORDERED: VANCOMYCIN 1 GRAM (PRE-DOCKED) 1,000 MG/250 ML BAG IVPB ONE (17:30)
[2022-02-17] MEDS ORDERED: DEXTROSE 5%-WATER - 50 ML IVPB ONE (17:54)
[2022-02-17] MEDS ORDERED: PIPERACILLIN/TAZOBACTAM 2.25 GM VIAL IVPB ONE (17:54)
[2022-02-17] MEDS: PIPERACILLIN/TAZOB 2.25 GM 2.25 GM in DEXTROSE 5%-WATER - 50 ML IVPB SCH ×2 (17:59→18:12)
[2022-02-17 19:16] LABS: CHLORIDE 107 mmol/L (98-107); SODIUM 142 mmol/L (136-145)
[2022-02-17 19:17] LABS: ALBUMIN 2.2 g/dl (3.4-5.0); BLOOD UREA NITROGEN 92.7 mg/dL (7-18); CALCIUM 8.2 mg/dL (8.5-10.1); CO2 22 mmol/L (21-32); GLUCOSE,RANDOM 128 mg/dL (74-106)
[2022-02-17 19:20] LABS: SGPT/ALT 11 U/L (13-61)
[2022-02-17 19:21] LABS: SGOT/AST 83 U/L (15-37)
[2022-02-17 19:22] LABS: BILIRUBIN,TOTAL 2.3 mg/dL (0.2-1); TOT PROT 4.8 g/dl (6.4-8.2)
[2022-02-17 19:41] LABS: ALK PHOS 140 U/L (45-117); ANION GAP 14 MMOL/L (8-16)
[2022-02-17] MEDS: MUPIROCIN 2% TOPICAL OINTMENT FOR DECOLONIZATION NS SCH (22:55)
[2022-02-18] MEDS: VASOPRESSIN 40 UNITS/100 ML BAG IV SCH (01:55)
[2022-02-18] MEDS: NOREPINEPHRINE BITARTRATE 16,000 MCG in SODIUM CHLORIDE 484 ML IV SCH ×2 (02:30→22:57)
[2022-02-18] MEDS: PIPERACILLIN/TAZOB 2.25 GM 2.25 GM in DEXTROSE 5%-WATER - 50 ML IVPB SCH ×3 (02:55→17:48)
[2022-02-18] MEDS ORDERED: SODIUM CHLORIDE 1,000 ML IV SCH (03:39)
[2022-02-18 07:34] LABS: HEMOGLOBIN 9.2 GM/dL (11.7-16.9); MCH 25.7 pg (25.7-33.7); MCHC 30.8 g/dl (32.0-35.9); MEAN CELL VOLUME 83.5 fl (80-96); MEAN PLT VOLUME 11.3 fl (7.5-11.1); PLATELET COUNT 148 10^3/uL (134-434); RBC 3.59 M/mm3 (4.00-5.60); RDW 22.1 % (11.9-15.9)
[2022-02-18 07:39] LABS: WHITE BLOOD COUNT 33.4 K/mm3 (4.0-10.0)
[2022-02-18 07:40] LABS: CHLORIDE 106 mmol/L (98-107); SODIUM 140 mmol/L (136-145)
[2022-02-18 07:50] LABS: ALBUMIN 2.1 g/dl (3.4-5.0); ALK PHOS 129 U/L (45-117); CALCIUM 8.3 mg/dL (8.5-10.1); GLUCOSE,RANDOM 140 mg/dL (74-106)
[2022-02-18 07:51] LABS: BLOOD UREA NITROGEN 95.5 mg/dL (7-18); CO2 20 mmol/L (21-32); MAGNESIUM 2.5 mg/dL (1.8-2.4)
[2022-02-18 07:53] LABS: CREATININE 4.1 mg/dL (0.55-1.3); PHOSPHOROUS 6.9 mg/dL (2.5-4.9); SGOT/AST 144 U/L (15-37); SGPT/ALT 18 U/L (13-61)
[2022-02-18 07:55] LABS: BILIRUBIN,TOTAL 2.8 mg/dL (0.2-1); TOT PROT 4.7 g/dl (6.4-8.2)
[2022-02-18 07:59] LABS: ANION GAP 15 MMOL/L (8-16)
[2022-02-18] MEDS ORDERED: ALBUTEROL SO4 0.5 % INH SOLN 2.5 MG/0.5 ML VIAL.NEB. NEB ONE (08:51)
[2022-02-18] MEDS ORDERED: INSULIN REGULAR HUMAN 100 UNITS/ML *VIAL IVPUSH ONE (08:51)
[2022-02-18] MEDS ORDERED: DEXTROSE 50%-WATER - 25 GM/50 ML VIAL IVPUSH ONE (08:51)
[2022-02-18] MEDS ORDERED: CALCIUM GLUCONATE 10% - 1,000 MG/10 ML VIAL IVPUSH ONE (08:51)
[2022-02-18 09:19] LABS: ANISOCYTOSIS 2+; MACROCYTOSIS 1+
[2022-02-18 09:41] LABS: PLATELET ESTIMATE SLT DECREASE
[2022-02-18] MEDS: SCOPOLAMINE HYDROBROMIDE 1 PATCH PATCH.TD72 TD SCH (09:46)
[2022-02-18] MEDS: SODIUM ZIRCONIUM CYCLOSILICATE (LOKELMA) 5 GM PACKET PO SCH ×3 (09:46→21:38)
[2022-02-18] MEDS ORDERED: PIPERACILLIN/TAZOBACTAM 2.25 GM VIAL IVPB ONE ×2 (09:53→14:57)
[2022-02-18] MEDS ORDERED: DEXTROSE 5%-WATER - 50 ML IVPB ONE ×2 (09:53→14:57)
[2022-02-18] MEDS: MUPIROCIN 2% TOPICAL OINTMENT FOR DECOLONIZATION NS SCH ×2 (09:58→21:38)
[2022-02-18] MEDS ORDERED: VANCOMYCIN 1 GRAM (PRE-DOCKED) 1,000 MG/250 ML BAG IVPB ONE (11:15)
[2022-02-18] MEDS: MORPHINE SULFATE/0.9% NACL/PF 100 MG/100 ML BAG IVPB SCH (14:11)
[2022-02-18] MEDS: SODIUM BICARBONATE 8.4% 50 MEQ/50 ML DISP.SYRIN IVPUSH SCH ×2 (15:10→16:50)
[2022-02-18] MEDS: CHLORHEXIDINE GLUCONATE 4% CLEANSER FOR DECOLONIZATION TP SCH (21:38)
[2022-02-19] MEDS: PIPERACILLIN/TAZOB 2.25 GM 2.25 GM in DEXTROSE 5%-WATER - 50 ML IVPB SCH ×3 (02:40→18:15)
[2022-02-19] MEDS ORDERED: PIPERACILLIN/TAZOBACTAM 2.25 GM VIAL IVPB ONE ×3 (02:55→14:06)
[2022-02-19] MEDS ORDERED: DEXTROSE 5%-WATER - 50 ML IVPB ONE ×3 (02:55→14:06)
[2022-02-19] MEDS: NOREPINEPHRINE BITARTRATE 16,000 MCG in SODIUM CHLORIDE 484 ML IV SCH ×3 (09:00→18:15)
[2022-02-19] MEDS: MUPIROCIN 2% TOPICAL OINTMENT FOR DECOLONIZATION NS SCH ×2 (09:35→21:42)
[2022-02-19] MEDS: VASOPRESSIN 40 UNITS/100 ML BAG IV SCH ×2 (09:36→11:15)
[2022-02-19] MEDS: SODIUM ZIRCONIUM CYCLOSILICATE (LOKELMA) 5 GM PACKET PO SCH (14:14)
[2022-02-19 16:19] VITALS: BMI 29.9
[2022-02-19] MEDS: MORPHINE SULFATE/0.9% NACL/PF 100 MG/100 ML BAG IVPB SCH (18:14)
[2022-02-19] MEDS: CHLORHEXIDINE GLUCONATE 4% CLEANSER FOR DECOLONIZATION TP SCH (21:42)
[2022-02-20] MEDS: VASOPRESSIN 40 UNITS/100 ML BAG IV SCH (02:30)
[2022-02-20] MEDS ORDERED: DEXTROSE 5%-WATER - 50 ML IVPB ONE ×3 (02:48→18:38)
[2022-02-20] MEDS ORDERED: PIPERACILLIN/TAZOBACTAM 2.25 GM VIAL IVPB ONE ×3 (02:48→18:38)
[2022-02-20] MEDS: PIPERACILLIN/TAZOB 2.25 GM 2.25 GM in DEXTROSE 5%-WATER - 50 ML IVPB SCH ×5 (02:56→18:30)
[2022-02-20] MEDS: NOREPINEPHRINE BITARTRATE 16,000 MCG in SODIUM CHLORIDE 484 ML IV SCH (03:09)
[2022-02-20] MEDS: MUPIROCIN 2% TOPICAL OINTMENT FOR DECOLONIZATION NS SCH ×2 (10:45→22:57)
[2022-02-20] MEDS: SODIUM ZIRCONIUM CYCLOSILICATE (LOKELMA) 5 GM PACKET PO SCH (11:30)
[2022-02-20] MEDS: MORPHINE SULFATE/0.9% NACL/PF 100 MG/100 ML BAG IVPB SCH (14:00)
[2022-02-20 14:42] VITALS: PULSE 50
[2022-02-20] MEDS: CHLORHEXIDINE GLUCONATE 4% CLEANSER FOR DECOLONIZATION TP SCH (22:57)
[2022-02-21] MEDS ORDERED: PIPERACILLIN/TAZOBACTAM 2.25 GM VIAL IVPB ONE ×2 (03:43→11:02)
[2022-02-21] MEDS ORDERED: DEXTROSE 5%-WATER - 50 ML IVPB ONE ×2 (03:43→11:02)
[2022-02-21] MEDS: PIPERACILLIN/TAZOB 2.25 GM 2.25 GM in DEXTROSE 5%-WATER - 50 ML IVPB SCH ×2 (03:51→11:09)
[2022-02-21] MEDS: MUPIROCIN 2% TOPICAL OINTMENT FOR DECOLONIZATION NS SCH (11:09)
[2022-02-21] MEDS: SCOPOLAMINE HYDROBROMIDE 1 PATCH PATCH.TD72 TD SCH (11:09)
[2022-02-21 15:20] VITALS: BP 89/44; TEMP 97.6
== END 2022-02-21 19:07 | disposition expired | DRG 870 ==
LOC: JER 13:52 → JERBED 15:04 → JICU 17:53
PROVIDERS: ADMIT Internal Medicine Pulmonary Disease; ATTEND Internal Medicine Pulmonary Disease
PROC: 0BH17EZ Insertion of Endotracheal Airway into Trachea, Via Natural or Artificial Opening (ICD-10-PCS; principal; 2022-02-14)
PROC: 5A1955Z Respiratory Ventilation, Greater than 96 Consecutive Hours (ICD-10-PCS; 2022-02-14)
PROC: B543ZZA Ultrasonography of Right Jugular Veins, Guidance (ICD-10-PCS; 2022-02-15)
PROC: 05HM33Z Insertion of Infusion Device into Right Internal Jugular Vein, Percutaneous Approach (ICD-10-PCS; 2022-02-15)
DX: A41.89 Other specified sepsis (principal); J96.01 Acute respiratory failure with hypoxia; J69.0 Pneumonitis due to inhalation of food and vomit; R65.21 Severe sepsis with septic shock; E87.2 Acidosis; N17.9 Acute kidney failure, unspecified; G20 Parkinson's disease; F02.80 Dementia in other diseases classified elsewhere, unspecified severity, without behavioral disturbance, psychotic disturbance, mood disturbance, and anxiety; I46.9 Cardiac arrest, cause unspecified; I25.10 Atherosclerotic heart disease of native coronary artery without angina pectoris; E78.5 Hyperlipidemia, unspecified; E11.9 Type 2 diabetes mellitus without complications; Z95.0 Presence of cardiac pacemaker; N47.1 Phimosis; R33.9 Retention of urine, unspecified; D72.829 Elevated white blood cell count, unspecified; I95.9 Hypotension, unspecified; I11.0 Hypertensive heart disease with heart failure; I50.9 Heart failure, unspecified
CPT/HCPCS: 36415; 71045-TC-FY; 80048; 80053; 82550; 82553; 82962; 83605; 83735; 83880; 84100; 84484; 85025; 85027; 86850; 86900; 86901; 87040; 87070; 87186; 87205; 87899; 93005; 93010; 94002; 94640; 99291; C9803-CS; J3490; U0003; U0005